=== PATIENT | male | born 1935 | race Caucasian/White ===

== ENCOUNTER 2018-01-21 05:02 | Inpatient (IN) ==
[2018-01-21] MEDS ORDERED: Morphine Inj 4 MG/ML Vial IV.PUSH ONE (05:25)
--- NOTE | 2018-01-21 06:04 | ED ---
HPI General Chief Complaint: Fall Stated Complaint: Medical Time Seen by Provider: 01/21/18 05:25 Source: patient and EMS Mode of arrival: EMS Limitations: no limitations History of Present Illness MD Complaint: Reports back injury Onset (ago): hour(s) Similar Symptoms Previously: No Location: Reports lumbar spine Quality: Reports sharp Radiation: Reports none Severity scale (1-10): 10 Relieving factors: none Exacerbating factors: movement Context: Reports fall Associated symptoms: Reports denies other symptoms; Denies syncope, numbness, loss of sensation in lower extremities, fecal incontinence, fever, chills and parasthesias Related Data Home Medications Medication Instructions Recorded Confirmed alendronate 70 mg PO QWEEK 11/17/17 11/17/17 cod liver oil ml PO DAILY 11/17/17 diltiazem HCl 360 mg PO DAILY 11/17/17 11/17/17 hydroxyurea 1,000 mg PO DIRECTED 11/17/17 11/17/17 hydroxyurea 500 mg PO DIRECTED 11/17/17 11/17/17 levothyroxine 100 mcg PO DAILY 11/17/17 11/17/17 prednisone 10 mg PO HS 11/17/17 11/17/17 warfarin [Coumadin] 5 mg PO 2XWEEK 11/17/17 11/17/17 Previous Rx's Medication Instructions Recorded allopurinol 100 mg PO DAILY #30 tab 11/22/17 ascorbic acid (vitamin C) [Vitamin 500 mg PO DAILY #30 tab 11/22/17 C] calcium citrate 300 mg PO QID #120 tab 11/22/17 cholecalciferol (vitamin D3) 5,000 unit PO DAILY #30 tab 11/22/17 [Vitamin D3] diltiazem HCl 240 mg PO DAILY #60 cap 11/22/17 docusate sodium [Colace] 100 mg PO TID #90 cap 11/22/17 fluticasone-salmeterol [Advair 1 inh INHALATION DAILY #1 inh 11/22/17 Diskus] folic acid 0.8 mg PO DAILY #30 tab 11/22/17 furosemide [Lasix] 40 mg PO BID #60 tab 11/22/17 guaifenesin [Mucinex] 600 mg PO BID #60 tab 11/22/17 hydroxyurea 1,000 mg PO MoTuWeTh #60 cap 10/09/18 hydroxyurea 500 mg PO SuFrSa #30 cap 11/22/17 levothyroxine [Synthroid] 100 mcg PO DAILY@0600 #30 tab 11/22/17 meclizine 12.5 mg PO Q6H PRN #120 tab 11/22/17 metolazone 2.5 mg PO Q OTHER DAY #30 tab 11/22/17 metolazone 5 mg PO Q OTHER DAY #30 tab 11/22/17 multivitamin [Multiple Vitamins] 1 tab PO DAILY #30 tab 11/22/17 nebulizer and compressor [Portable #1 each 11/22/17 Nebulizer System] polyethylene glycol 3350 [Miralax] 17 g PO DAILY PRN #1 bottle 11/22/17 potassium chloride 20 meq PO TID #90 ea 11/22/17 pravastatin 20 mg PO HS #30 tab 11/22/17 prednisone 20 mg PO HS #60 tab 11/22/17 ramipril 2.5 mg PO DAILY #30 tab 11/22/17 warfarin [Coumadin] 5 mg PO TuFr@1600 #30 tab 11/22/17 warfarin [Coumadin] 5.5 mg PO 5XW #30 tab 11/22/17 hydrocodone-acetaminophen [[place]] 1 tab PO Q4-6H PRN #35 tab 01/21/18 Allergies Allergy/AdvReac Type Severity Reaction Status Date / Time aspirin Allergy Severe Hives Verified 01/21/18 05:29 erythromycin base Allergy Severe Hives Verified 01/21/18 05:29 levofloxacin Allergy Severe Hives Verified 01/21/18 05:29 Review of Systems ROS: all other systems reviewed are negative [facility] Medical History Medical History A-fib (Acute) Asthma (Acute) Hypercholesterolemia (Acute) Hypothyroidism (Acute) Pacemaker (Acute) Social History Social History Substance History: No History of Abuse Second Hand Smoke Exposure: Yes Smoking Status: Never smoker How Often Do You Have a Drink Containing Alcohol: Never Recent Travel in [facility] within the Last 8 Weeks: No Recent Out of Country Travel within the Last 8 Weeks: No Immunization History Tetanus Immunization: Unsure Exam Const General: cooperative, healthy appearing, no acute distress and well developed Orientation: alert, awake and oriented x3 HENMT Head: normal to inspection, normocephalic and atraumatic Eyes Alignment and Position: alignment normal Conjunctivae: conjunctivae normal Sclera: sclerae normal EOM: EOM intact bilaterally Neck Neck: normal visual inspection and full ROM Chest Chest: normal inspection of the chest Resp Effort & Inspection: normal respiratory effort and able to speak in complete sentences Cardio Rate: regular rate Rhythm: regular rhythm Back/Spine/Pelvis Cervical Spine: cervical ROM normal Thoracic/Lumbar Spine: thoraco-lumbar ROM limited, No thoracic spinal tenderness and lumbar spinal tenderness Skin General: no rashes or lesions noted and turgor normal Neuro General: alert, awake, oriented x3, moves all extremities and CN's II-XI intact bilaterally Extrem General: normal to inspection and full ROM Psych Appearance: grossly normal Mental Status: mental status grossly normal Speech and Movement: speech and movement normal Mood: congruent mood Affect: normal affect Attitude: cooperative Thought Process: normal Thought Content: normal Judgment: judgment good Course Initial Documented Vital Signs Temperature 98.5 F 01/21/18 05:21 Pulse Rate 64 01/21/18 05:21 Respiratory Rate 24 01/21/18 05:21 Blood Pressure 126/58 L 01/21/18 05:21 Pulse Oximetry 95 01/21/18 05:21 Last Documented Vital Signs Temperature 98.5 F 01/21/18 05:30 Pulse Rate 75 01/21/18 05:30 Respiratory Rate 26 H 01/21/18 05:30 Blood Pressure 132/62 01/21/18 05:30 Pulse Oximetry 95 01/21/18 05:30 Medical Decision Making [facility] Narrative Medical decision making narrative: This patient was just discharged from a detention facility today. As he was transferring from his vehicle to the house, he had a loss of balance and fall. He states that he struck the back of his head on the car. There was no loss of consciousness. [facility] was called. He was not transported to the hospital at that time. He has subsequently developed pain in his low back. [facility] was called again and he was brought to the hospital. He denies any worrisome signs or symptoms such as bowel or bladder incontinence, paresthesias, leg weakness. On exam, he has tenderness in the upper part of the lumbar back. CT of the L-spine has been ordered. His pain has been treated with morphine. CT shows a T12 compression fracture. I have not consulted neurosurgery because this patient would not be a good operative candidate for kyphoplasty. He will be placed in a back brace. He will be given a referral to neurosurgery as an outpatient. [facility] Prescription Drug Monitoring Database has been queried and verified prior to prescribing the controlled subsection. Patient is having significant pain caused by a compression fracture which will last more than 3 days. Trial of alternative treatment options other than prescribed opioids has not helped. I believe that it is medically necessary to treat the patients pain because it is affecting patients ability to enjoy life. Medical Screen Exam Complete: Yes Emergency Medical Condition: Yes Differential Diagnosis Differential Diagnosis: Differential diagnosis of back injury includes but is not limited to contusion, muscle strain, ligamentous strain, compression fracture, spinous process fracture Imaging Data Radiologist's impression: Lumbar Spine CT 01/21/18 05:25 CONCLUSION: 1. Degenerative changes are noted as above. 2. T12 compression fracture. Discharge Plan Discharge Disposition Patient Disposition: Discharge Home Discharge Condition Condition: Stable Discharge Order Discharge Orders: Discharge Order (Routine); Ordered 01/21/18 Ordered By: Ailyn Ramírez Discharge Details Diagnosis: Compression fracture of T12 vertebra Physicians Team ED Provider: Ailyn Ramírez Primary Care Provider: Richie Martinez Rxs /Orders / Referrals /Forms Prescriptions: New hydrocodone-acetaminophen [[place]] 5-325 mg tablet 1 tab PO Q4-6H PRN (Reason: acute pain exception) Qty: 35 RF: 0 No Action hydroxyurea 500 mg Capsule 1,000 mg PO DIRECTED RF: 0 hydroxyurea 500 mg Capsule 500 mg PO DIRECTED RF: 0 prednisone 10 mg Tablet 10 mg PO HS RF: 0 alendronate 70 mg Tablet 70 mg PO QWEEK RF: 0 diltiazem HCl 360 mg Capsule,Extended Release 24 Hr 360 mg PO DAILY RF: 0 cod liver oil Oil PO DAILY RF: 0 warfarin [Coumadin] 5 mg Tablet 5 mg PO 2XWEEK RF: 0 levothyroxine 100 mcg Capsule 100 mcg PO DAILY RF: 0 hydroxyurea 500 mg Capsule 500 mg PO SuFrSa Qty: 30 RF: 0 hydroxyurea 500 mg Capsule 1,000 mg PO MoTuWeTh Qty: 60 RF: 0 prednisone 10 mg Tablet 20 mg PO HS Qty: 60 RF: 0 levothyroxine [Synthroid] 100 mcg Tablet 100 mcg PO DAILY@0600 Qty: 30 RF: 0 warfarin [Coumadin] 5 mg Tablet 5 mg PO TuFr@1600 Qty: 30 RF: 0 diltiazem HCl 120 mg Capsule,Extended Release 24hr 240 mg PO DAILY Qty: 60 RF: 0 guaifenesin [Mucinex] 600 mg Tablet Extended Release 12hr 600 mg PO BID Qty: 60 RF: 0 nebulizer and compressor [Portable Nebulizer System] Device Qty: 1 RF: 0 multivitamin [Multiple Vitamins] Tablet 1 tab PO DAILY Qty: 30 RF: 0 furosemide [Lasix] 40 mg Tablet 40 mg PO BID Qty: 60 RF: 0 metolazone 2.5 mg Tablet 2.5 mg PO Q OTHER DAY Qty: 30 RF: 0 fluticasone-salmeterol [Advair Diskus] 250-50 mcg/dose Blister With Device 1 inh INHALATION DAILY Qty: 1 RF: 0 polyethylene glycol 3350 [Miralax] 17 gram Powder In Packet 17 g PO DAILY PRN (Reason: Constipation) Qty: 1 RF: 0 metolazone 5 mg Tablet 5 mg PO Q OTHER DAY Qty: 30 RF: 0 meclizine 12.5 mg Tablet 12.5 mg PO Q6H PRN (Reason: Vertigo) Qty: 120 RF: 0 allopurinol 100 mg Tablet 100 mg PO DAILY Qty: 30 RF: 0 potassium chloride 20 mEq Packet 20 meq PO TID Qty: 90 RF: 0 ascorbic acid (vitamin C) [Vitamin C] 500 mg Tablet 500 mg PO DAILY Qty: 30 RF: 0 ramipril 2.5 mg Capsule 2.5 mg PO DAILY Qty: 30 RF: 0 warfarin [Coumadin] 5 mg Tablet 5.5 mg PO 5XW Qty: 30 RF: 0 docusate sodium [Colace] 100 mg Capsule 100 mg PO TID Qty: 90 RF: 0 pravastatin 20 mg Tablet 20 mg PO HS Qty: 30 RF: 0 folic acid 800 mcg Tablet 0.8 mg PO DAILY Qty: 30 RF: 0 calcium citrate 200 mg (950 mg) Tablet 300 mg PO QID Qty: 120 RF: 0 cholecalciferol (vitamin D3) [Vitamin D3] 5,000 unit Tablet 5,000 unit PO DAILY Qty: 30 RF: 0 Referrals: Donald Gillis MD [Physician] - 3 Days Discharge Instructions Patient Printed Instructions: Vertebral Compression Fracture (ED) Discharge Interventions Interventions: Vital Signs Last Done: 01/21/18 05:30 Status ED Status: Ready for Discharge
--- NOTE | 2018-01-21 06:16 | CT ---
EXAM DATE: 01/21/2018 5:59 AM EST AGE/SEX: 82 years / Male INDICATIONS: Trauma; patient complains of low back pain. CLINICAL DATA: This is the patient's initial encounter. Patient reports that signs and symptoms have been present for 1 day and indicates a pain score of 8/10. MEDICAL/SURGICAL HISTORY: Cardiovascular disease. Atrial fibrillation Pacemaker. Splenectomy. RADIATION DOSE: 24.44 CTDI (mGy) COMPARISON: No prior exams available for comparison. TECHNIQUE: Contiguous axial images were acquired with a multirow detector CT scanner without contras t. Multiplanar reconstructions in the sagittal and coronal plane were also performed. Using automate d exposure control and adjustment of the mA and/or kV according to patient size, radiation dose was k ept as low as reasonably achievable to obtain optimal diagnostic quality images. DICOM format image data is available electronically for review and comparison. FINDINGS: Grade 1 retrolisthesis of L5 on S1, grade 1 anterolisthesis of L4 and L5. Severe disc space narrowing with vacuum disc phenomenon and mild endplate sclerosis at L3-4, L4-5 and L5-S1. There is an acute f racture of the T12 vertebral body with very slight loss of vertebral body height. There are mild to m oderate multilevel facet hypertrophic changes and mild diffuse disc bulging. L3-4 a diffuse disc bulg e is present with moderate facet and ligamentum flavum hypertrophy and mild canal narrowing. There is also moderate bilateral foraminal stenosis. A broad-based bulge/lateral protrusion at L4-5 is identi fied on the right with mass effect on the right L4 exiting nerve.. Mild anterior osteophyte formation is seen. CONCLUSION: 1. Degenerative changes are noted as above. 2. T12 compression fracture. Electronically signed by: Ming Hough MD 01/21/2018 6:15 AM EST
[2018-01-21] MEDS ORDERED: MECLIZINE 12.5 MG PO PRN (12:23)
[2018-01-21] MEDS ORDERED: Non-Formulary Drug (Fluticasone-Salmeterol [Advair Diskus] 1 INH) INHALATION SCH (12:30)
[2018-01-21] MEDS ORDERED: FOLIC ACID 800 MCG PO SCH (12:30)
[2018-01-21] MEDS ORDERED: DILTIAZEM HCL 360 MG PO SCH (12:30)
[2018-01-21] MEDS ORDERED: MULTIVITAMIN IRON FOLIC ACID PO SCH (12:30)
[2018-01-21] MEDS ORDERED: COD LIVER OIL PO SCH (12:30)
[2018-01-21] MEDS ORDERED: Non-Formulary Drug (Cholecalciferol (Vitamin D3) [Vitamin D3] 5,000 UNIT) PO SCH (12:30)
[2018-01-21] MEDS ORDERED: CALCIUM CITRATE PO SCH (13:00)
[2018-01-21] MEDS ORDERED: Potassium Chloride 20 MEQ Pwd Pkt PO SCH (13:00)
[2018-01-21] MEDS: Furosemide 40 MG Tablet PO SCH ×2 (14:39→21:13)
[2018-01-21] MEDS: Hydroxyurea 500 MG Capsule PO SCH (14:39)
[2018-01-21] MEDS: dilTIAZem CD 180 MG Capsule PO SCH (14:40)
[2018-01-21] MEDS: Potassium Chloride 25 MEQ Effervescent Tablet PO SCH ×2 (14:40→18:28)
[2018-01-21] MEDS: Ramipril 2.5 MG Capsule PO SCH (14:40)
[2018-01-21] MEDS: Allopurinol 100 MG Tablet PO SCH (14:40)
[2018-01-21] MEDS: Ascorbic Acid 500 MG Tablet PO SCH (14:40)
[2018-01-21] MEDS: Docusate Sodium 100 MG Capsule PO SCH ×2 (14:40→18:28)
[2018-01-21 16:28] LABS: INR 1.5 Ratio; Prothrombin Time 14.7 sec (9.8-11.6)
[2018-01-21] MEDS: Budesonide-Formoterol 160/4.5 MCG 6 GM Inhaler INH SCH (21:15)
--- NOTE | 2018-01-21 21:32 | ECG ---
Date Performed: 01/21/2018 Time Performed: 05:34:51 PTAGE: 82 years EKG: ATRIAL FIBRILLATION WITH CONTROLLED VENTRICULAR RATE VENTRICULAR PREMATURE COMPLEXES NONSPE CIFIC ST & T-WAVE ABNORMALITY Compared to previous tracing, prior tracing showed pacing ABNORMAL RHYT HM ECG PREVIOUS TRACING : 11/17/2017 08.12 DOCTOR: Matthew Ortega Interpretating Date/Time 01/21/2018 21:31:34
[2018-01-21] MEDS ORDERED: Bisacodyl 10 MG Supp RECTAL PRN (22:20)
[2018-01-21] MEDS ORDERED: Acetaminophen 325 MG Tablet PO PRN (22:20)
--- NOTE | 2018-01-21 22:22 | P.HPIM ---
History of Present Illness Primary Care Physician: Richie Martinez MD History of Present Illness: This is an 82-year-old male with a PMH of HTN, Hyperlipidemia and A. fib on Coumadin who was brought to the ER by EMS yesterday for complaints of back pain after a fall. CT L-Spine w/ T12 compression fracture and fitted for TLSO w/ plans for outpatient follow up, however was deemed unsafe d/c home due to unsteady gait and ongoing pain. On arrival, BP 132/62, HR 75, O2 sat 95% on 2L NC, Afebrile. - Diagnosis (1) Fall (2) T12 compression fracture (3) A-fib Review of Systems PAST FAMILY HISTORY: Reviewed. No h/o DM or CAD All other systems reviewed negative except as stated in HPI [facility] - History History Provided By: Patient - Medical History Medical History: Medical History (Last Reviewed 01/21/18 @ 06:02 by Ailyn Ramírez) A-fib Asthma Hypercholesterolemia Hypothyroidism Pacemaker - Surgical History Surgical History: Surgical History (Last Reviewed 01/21/18 @ 05:26 by Dileep Daly Jr, RN) History of splenectomy - Family History Family History: Family History (Last Reviewed 11/17/17 @ 17:14 by Maria Fernanda Martel PT) Other No pertinent family history - Tobacco History Second Hand Smoke Exposure: Yes Smoking Status: Never smoker - Alcohol History How Often Do You Have a Drink Containing Alcohol: Never - Substance Use History Substance History: No History of Abuse - Travel History Recent Travel in the [place] Within the Last 8 Weeks: No Recent Travel Out of the Country Within the Last 8 Weeks: No - Immunization History Tetanus Immunization: Unsure Medications and Allergies Active Medications: Active Medications Albuterol (Albuterol Neb (Prn)) 1.25 mg NEB Q6HR NEB PRN PRN Reason: Shortness Of Breath Allopurinol (Zyloprim) 100 mg PO DAILY [facility] Last Admin: 01/21/18 14:40 Dose: 100 mg Ascorbic Acid (Vitamin C) 500 mg PO DAILY [facility] Last Admin: 01/21/18 14:40 Dose: 500 mg Budesonide/Formoterol Fumarate (Symbicort 160/4.5 Mcg Inh) 2 puff INH BID [facility] Last Admin: 01/21/18 21:15 Dose: 2 puff Diltiazem HCl (Cardizem Cd 24hr) 360 mg PO Q24H [facility] Last Admin: 01/21/18 14:40 Dose: 360 mg Docusate Sodium (Colace) 100 mg PO TID [facility] Last Admin: 01/21/18 18:28 Dose: 100 mg Furosemide (Lasix) 40 mg PO BID [facility] Last Admin: 01/21/18 21:13 Dose: 40 mg Hydroxyurea (Hydrea) 500 mg PO DAILY [facility] Last Admin: 01/21/18 14:39 Dose: 500 mg Levothyroxine Sodium (Synthroid) 100 mcg PO DAILY@0600 [facility] Metolazone (Zaroxolyn) 2.5 mg PO [facility] Miscellaneous (Pill Splitter) 1 each OTHER UNSCH PRN PRN Reason: TABLET SPLITTIN Multivitamins (Theragran) 1 tab PO DAILY [facility] Non-Formulary Medication (Meclizine [Meclizine]) 12.5 mg PO Q6H PRN PRN Reason: Vertigo Potassium Bicarb/Potassium Chloride (K-Lyte Cl Eff) 25 meq PO TID [facility] Last Admin: 01/21/18 18:28 Dose: 25 meq Pravastatin Sodium (Pravachol) 20 mg PO HS [facility] Last Admin: 01/21/18 21:13 Dose: 20 mg Ramipril (Altace) 2.5 mg PO DAILY [facility] Last Admin: 01/21/18 14:40 Dose: 2.5 mg Vitamin D (Vitamin D3) 5,000 unit PO DAILY [facility] Last Admin: 01/21/18 14:41 Dose: 5,000 unit Warfarin Sodium (Coumadin) 5 mg PO SuMoWeThSa@1600 [facility] Last Admin: 01/21/18 18:15 Dose: 5 mg Warfarin Sodium (Coumadin) 0.5 mg PO SuMoWeThSa@1600 [facility] Last Admin: 01/21/18 18:24 Dose: 0.5 mg Allergies Allergy/AdvReac Type Severity Reaction Status Date / Time aspirin Allergy Severe Hives Verified 01/21/18 05:29 erythromycin base Allergy Severe Hives Verified 01/21/18 05:29 levofloxacin Allergy Severe Hives Verified 01/21/18 05:29 Home Medications Medication Instructions Recorded Confirmed Type alendronate 70 mg PO QWEEK 11/17/17 01/21/18 History diltiazem HCl 360 mg PO DAILY 11/17/17 01/21/18 History albuterol sulfate 1.25 mg INHALATION Q6H PRN 01/21/18 01/21/18 History ascorbic acid (vitamin C) [Vitamin 500 mg PO DAILY 01/21/18 01/21/18 History C] cod liver oil 5 ml PO DAILY 01/21/18 01/21/18 History cyanocobalamin (vitamin B-12) 1,000 mcg SUBCUT QMONTH 01/21/18 01/21/18 History folic acid 800 mcg PO DAILY 01/21/18 01/21/18 History hydroxyurea 500 mg PO DAILY 01/21/18 01/21/18 History metolazone 2.5 mg PO 4XW 01/21/18 01/21/18 History metolazone 5 mg PO 3XW 01/21/18 01/21/18 History ipzlcwvqzkiu-tpia-ptapo acid 1 tab PO DAILY 01/21/18 01/21/18 History [Centrum] polyethylene glycol 3350 [Miralax] 17 g PO DAILY PRN 01/21/18 01/21/18 History warfarin [Coumadin] 5 mg PO 2XWEEK 01/21/18 01/21/18 History warfarin [Coumadin] 5.5 mg PO 5XW 01/21/18 01/21/18 History Exam Vital signs: Vital Signs 01/21/18 05:21 01/21/18 05:30 01/21/18 09:29 Temperature 98.5 F 98.5 F Pulse Rate 64 75 84 Respiratory Rate 24 26 H 20 Blood Pressure 126/58 L 132/62 144/70 H Pulse Oximetry 95 95 93 L 01/21/18 13:00 01/21/18 17:00 01/21/18 18:15 Temperature Pulse Rate 67 70 62 Respiratory Rate 18 17 18 Blood Pressure 116/57 L 118/62 113/58 L Pulse Oximetry 99 96 97 01/21/18 21:55 Temperature Pulse Rate 54 L Respiratory Rate 19 Blood Pressure 104/52 L Pulse Oximetry Intake & Output 01/21/18 01/21/18 01/22/18 06:59 18:59 06:59 Weight 90.718 kg Narrative: PE: GENERAL: Pleasant elderly white male in no acute distress. SKIN: Focused skin assessment warm and dry. HEENT: PERRLA, EOMI. No scleral icterus or conjunctival pallor. No lid lag or facial droop. CARDIOVASCULAR: Regular rate and rhythm. No obvious murmurs to auscultation. No chest tenderness to palpation. RESPIRATORY: No obvious rhonchi or wheezing. Clear to auscultation. Breath sounds equal bilaterally. GASTROINTESTINAL: Abdomen soft, non-tender, nondistended. BS normal. MUSCULOSKELETAL: Extremities without clubbing, cyanosis, or edema. No obvious deformities. +TLSO NEUROLOGICAL: Awake, alert and oriented x4. No focal neurologic deficits. Moving both upper and lower extremities spontaneously. PSYCHIATRIC: Appropriate mood and affect. Insight and judgment normal. Results - Imaging Impressions Lumbar Spine CT 01/21/18 05:25 CONCLUSION: 1. Degenerative changes are noted as above. 2. T12 compression fracture. Caprini VTE Risk Assessment Caprini VTE Risk Assessment: Moderate/High Risk (score >= 2) Caprini Risk Assessment Model: Point Value = 1 Point Value = 2 Point Value = 3 Point Value = 5 Age 41-60 Minor surgery BMI > 25 kg/m2 Swollen legs Varicose veins or History of unexplained or recurrent spontaneous Oral contraceptives or hormone replacement Sepsis (< 1 month) Serious lung disease, including pneumonia (< 1 month) Abnormal pulmonary function Acute myocardial infarction Congestive heart failure (< 1 month) History of inflammatory bowel disease Medical patient at bed rest Age 61-74 Arthroscopic surgery Major open surgery (> 45 min) Laparoscopic surgery (> 45 min) Malignancy Confined to bed (> 72 hours) Immobilizing plaster cast Central venous access Age >= 75 History of VTE Family history of VTE Factor V Leiden Prothrombin [id number] Lupus anticoagulant Anticardiolipin antibodies Elevated serum homocysteine Heparin-induced thrombocytopenia Other congenital or acquired thrombophilia Stroke (< 1 month) Elective arthroplasty Hip, pelvis, or leg fracture Acute spinal cord injury (< 1 month) Prophylaxis Regimen: Total Risk Factor Score Risk Level Prophylaxis Regimen 0-1 Low Early ambulation 2 Moderate Order ONE of the following: *Sequential Compression Device (SCD) *Heparin 5000 units SQ BID 3-4 Higher Order ONE of the following medications: *Heparin 5000 units SQ TID *Enoxaparin/Lovenox 40 mg SQ daily (WT < 150 kg, CrCl > 30 mL/min) *Enoxaparin/Lovenox 30 mg SQ daily (WT < 150 kg, CrCl > 10-29 mL/min) *Enoxaparin/Lovenox 30 mg SQ BID (WT < 150 kg, CrCl > 30 mL/min) AND/OR *Sequential Compression Device (SCD) 5 or more Highest Order ONE of the following medications: *Heparin 5000 units SQ TID (Preferred with Epidurals) *Enoxaparin/Lovenox 40 mg SQ daily (WT < 150 kg, CrCl > 30 mL/min) *Enoxaparin/Lovenox 30 mg SQ daily (WT < 150 kg, CrCl > 10-29 mL/min) *Enoxaparin/Lovenox 30 mg SQ BID (WT < 150 kg, CrCl > 30 mL/min) AND *Sequential Compression Device (SCD) Assessment and Plan - Assessment (1) Fall Code(s): W19.XXXA - Unspecified fall, initial encounter Status: Acute (2) T12 compression fracture Code(s): S22.080A - Wedge compression fracture of T11-T12 vertebra, initial encounter for closed fracture Status: Acute (3) A-fib Code(s): I48.91 - Unspecified atrial fibrillation Status: Acute - Plan A/P: 1. Fall: s/p mechanical fall, no head trauma or LOC reported, denies other injuries. 2. T12 Compression Fx: secondary to above, CT L-Spine w/ T12 compression fracture, referred to [facility] as outpatient, +TLSO, attempted discharge, however pt w/ significant gait instability, unsafe d/c home. PT for eval/tx. Case Management for assistance w/ placement. 3. A-fib: Chronic. On Coumadin, INR 1.5, will resume Coumadin, repeat INR in am. 4. DVT Prophylaxis: Continue Coumadin as above 5. Social work for d/c planning as needed 6. Case discussed w/ ER physician at length, labs/records/imaging reviewed by me
[2018-01-22] MEDS: Levothyroxine 100 MCG Tablet PO SCH (06:23)
[2018-01-22 08:11] LABS: INR 1.8 Ratio; Prothrombin Time 18.7 sec (9.8-11.6)
[2018-01-22 08:27] LABS: Albumin 2.7 g/dL (3.4-5.0); Anion Gap 9 meq/L (5-15); Aspartate Aminotransferase 67 U/L (15-37); Blood Urea Nitrogen 21 mg/dL (7-18); Calcium 8.3 mg/dL (8.5-10.1); Carbon Dioxide 22.9 meq/L (21.0-32.0); Chloride 107 meq/L (98-107); Glomerular Filtration Rate 48 mL/min (>89); Glucose,Random 84 mg/dL (74-106); Potassium 4.5 meq/L (3.5-5.1); Sodium 139 meq/L (136-145)
[2018-01-22 08:28] LABS: Alanine Aminotransferase 29 U/L (12-78)
[2018-01-22 08:31] LABS: Alkaline Phosphatase 92 U/L (45-117); Total Protein 5.8 g/dL (6.4-8.2)
[2018-01-22 08:58] LABS: Baso # (Auto) 0.2 th/mm3 (0.0-0.2); Eos # (Auto) 0.6 th/mm3 (0.0-0.4); Eos % (Auto) 3.8 % (0.0-4.0); Hematocrit 30.4 % (39.0-51.0); Hemoglobin 10.1 gm/dL (13.0-17.0); Lymph # (Auto) 2.1 th/mm3 (1.0-4.8); Lymph % (Auto) 13.7 % (9.0-44.0); Mean Corpuscular HGB Conc 33.1 % (32.0-36.0); Mean Corpuscular Hemoglobin 36.5 pg (27.0-34.0); Mean Corpuscular Volume 110.2 fL (80.0-100.0); Mean Platelet Volume 8.6 fL (7.0-11.0); Mono # (Auto) 3.1 th/mm3 (0.0-0.9); Mono % (Auto) 19.7 % (0.0-8.0); Neut # (Auto) 9.6 th/mm3 (1.8-7.7); Neut % (Auto) 61.8 % (16.0-70.0); Platelet Count 506 th/mm3 (150-450); Red Blood Count 2.76 mil/mm3 (4.50-5.90); Red Cell Distribution Width 17.6 % (11.6-17.2); White Blood Count 15.6 th/mm3 (4.0-11.0)
[2018-01-22] MEDS: Hydroxyurea 500 MG Capsule PO SCH (09:06)
[2018-01-22] MEDS: Ramipril 2.5 MG Capsule PO SCH (09:06)
[2018-01-22] MEDS: Potassium Chloride 25 MEQ Effervescent Tablet PO SCH ×3 (09:06→18:23)
[2018-01-22] MEDS: Docusate Sodium 100 MG Capsule PO SCH ×3 (09:06→18:23)
[2018-01-22] MEDS: Ascorbic Acid 500 MG Tablet PO SCH (09:06)
[2018-01-22] MEDS: Senna/Docusate Sodium 8.6/50 MG Tablet PO SCH ×2 (09:07→22:12)
[2018-01-22] MEDS: Budesonide-Formoterol 160/4.5 MCG 6 GM Inhaler INH SCH ×2 (09:08→22:11)
[2018-01-22] MEDS: Allopurinol 100 MG Tablet PO SCH (09:08)
[2018-01-22] MEDS: Furosemide 40 MG Tablet PO SCH (10:35)
[2018-01-22 11:53] LABS: Eosinophils 3 % (0-4); Lymphocytes 25 % (9-44); Monocytes 12 % (0-8); Tallied Nucleated RBC 2 (0-0)
[2018-01-22 11:54] LABS: Platelet Morphology Normal (Normal)
--- NOTE | 2018-01-22 13:23 | P.PN ---
Subjective Interval history: Nursing reports the patient was able to sit up on the chair. Patient self denies any new complaints. Says his back is sore. He has intact sensation to light finger touch and touch his anterior legs. Is able to follow motor commands with both lower extremities. Physical Exam Vital signs: Vital Signs 01/21/18 17:00 01/21/18 18:15 01/21/18 21:55 Temperature Pulse Rate 70 62 54 L Respiratory Rate 17 18 19 Blood Pressure 118/62 113/58 L 104/52 L Pulse Oximetry 96 97 01/21/18 22:51 01/22/18 00:00 01/22/18 00:03 Temperature 98.3 F Pulse Rate 56 L Respiratory Rate 18 18 Blood Pressure 92/44 L Pulse Oximetry 99 96 01/22/18 04:00 01/22/18 08:00 01/22/18 12:00 Temperature 97.7 F 97.6 F 97.5 F L Pulse Rate 57 L 84 64 Respiratory Rate 18 13 12 Blood Pressure 125/58 L 120/56 L 120/56 L Pulse Oximetry 98 98 97 Intake & Output 01/21/18 01/22/18 01/22/18 18:59 06:59 18:59 Intake Total 300 / 300 Output Total 320 / 320 Balance -20 / -20 Weight 90.718 kg Intake: Oral 300 / 300 Output: Urine 320 / 320 Other: Date of Last Bowel Movement 01/21/18 Weight On Admission 90.718 kg Narrative: Withholds bilateral proximal hip flexion secondary to low back pain Sitting up in chair, no slurred speech, no facial droop Clear lungs bilaterally, unlabored breathing Heart sounds regular rate and rhythm Has a bleeding venous stasis ulcer on the right anterior white mild-mod edematous BL ext chronic staining secondary to venous stasis of bilateral lower extremities Results - Labs CBC & Chem 7: 01/22/18 07:21 01/22/18 07:21 Laboratory Results - last 24 hr 01/21/18 01/21/18 01/22/18 15:30 17:42 07:21 WBC 15.6 H RBC 2.76 L Hgb 10.1 L Hct 30.4 L MCV 110.2 H D MCH 36.5 H MCHC 33.1 RDW 17.6 H Plt Count 506 H MPV 8.6 Prelim Diff (Auto) Slide review pending Neut % (Auto) 61.8 Lymph % (Auto) 13.7 [place] % (Auto) 19.7 H Eos % (Auto) 3.8 Baso % (Auto) 1.0 Neut # (Auto) 9.6 H Lymph # (Auto) 2.1 [place] # (Auto) 3.1 H Eos # (Auto) 0.6 H Baso # (Auto) 0.2 WBC Differential Manual diff final Seg Neuts % (Manual) 52 Band Neuts % (Manual) 8 H Lymphocytes % (Manual) 25 Monocytes % (Manual) 12 H Eosinophils % (Manual) 3 Abs Neuts (Manual) 9.4 H Nucleated RBCs/100 WBC 2 H Differential Comment . Platelet Estimate High H Platelet Morphology Normal PT 14.7 H INR 1.5 Sodium Potassium Chloride Carbon Dioxide Anion Gap BUN Creatinine Estimated GFR POC Glucose 109 Random Glucose Calcium Total Bilirubin AST ALT Alkaline Phosphatase Total Protein Albumin 01/22/18 01/22/18 07:21 07:21 WBC RBC Hgb Hct MCV MCH MCHC RDW Plt Count MPV Prelim Diff (Auto) Neut % (Auto) Lymph % (Auto) [place] % (Auto) Eos % (Auto) Baso % (Auto) Neut # (Auto) Lymph # (Auto) [place] # (Auto) Eos # (Auto) Baso # (Auto) WBC Differential Seg Neuts % (Manual) Band Neuts % (Manual) Lymphocytes % (Manual) Monocytes % (Manual) Eosinophils % (Manual) Abs Neuts (Manual) Nucleated RBCs/100 WBC Differential Comment Platelet Estimate Platelet Morphology PT 18.7 H INR 1.8 Sodium 139 Potassium 4.5 Chloride 107 Carbon Dioxide 22.9 Anion Gap 9 BUN 21 H Creatinine 1.41 H Estimated GFR 48 L POC Glucose Random Glucose 84 Calcium 8.3 L Total Bilirubin 1.5 H AST 67 H ALT 29 Alkaline Phosphatase 92 Total Protein 5.8 L Albumin 2.7 L Assessment and Plan - Assessment (1) Fall Code(s): W19.XXXA - Unspecified fall, initial encounter Status: Acute (2) T12 compression fracture Code(s): S22.080A - Wedge compression fracture of T11-T12 vertebra, initial encounter for closed fracture Status: Acute (3) A-fib Code(s): I48.91 - Unspecified atrial fibrillation Status: Acute - Plan 82-year-old white male admitted for intractable back pain after fall injury. Intractable back pain Improved since admission -Secondary to acute insult on chronic issues including spondylolisthesis along with very mild compression fracture, discussed case with neurosurgery, no need for further workup or invasive intervention Nasal calcitonin, pain control otherwise, PT, TSLO brace ROLAND - 2/2 home lasix, hold for now, trend in AM leukocytosis - likely stress induced, afebrile, trend dysphagia - not noted on prior admissions, will obtain MR of head to see if new CVA has occurred. - continue speech therapy, current recommendations are soft mechanical diet with nectar thickened liquids -allergic to ASA -start lipitor Afib Hx of CVA - on coumadin, allergic to aspirin -diltiazem Asthma -home ICS Myeloproliferative d/o -home hydroxyurea
[2018-01-22] MEDS: dilTIAZem CD 180 MG Capsule PO SCH (13:41)
--- NOTE | 2018-01-22 15:09 | P.CONNS ---
History of Present Illness Service: Neurosurgery Consult date: 01/22/18 Requesting Physician: Herman Damon Reason for Consult: T-12 compression fracture, intractable LBP Primary Care Provider: Richie Martinez MD Chief Complaint: T-12 compression fracture History of Present Illness: I was aksed by Dr. Damon ( ED), to see and evaluate this unfortunate 82-year- old male with a PMH of HTN, Hyperlipidemia and A. fib on Coumadin who was brought to the ER by EMS yesterday for complaints of back pain after a fall. CT L-Spine reveals a mild T12 compression fracture, he was fitted with TLSO w/ plans for outpatient follow up, however was deemed unsafe to d/c home due to unsteady gait and ongoing pain. Review of Systems All other systems reviewed negative except as stated in HPI Musculoskeletal: Reports abnormal walking, Reports back pain, Reports radiating pain into limb PMFSH - History History Provided By: Patient - Medical History Medical History: Medical History (Last Reviewed 01/22/18 @ 14:58 by Manohar Kuhn MD) A-fib Asthma Hypercholesterolemia Hypothyroidism Pacemaker - Surgical History Surgical History: Surgical History (Last Reviewed 01/22/18 @ 14:58 by Manohar Kuhn MD) History of splenectomy - Family History Family History: Family History (Last Reviewed 01/22/18 @ 14:58 by Manohar Kuhn MD) Other No pertinent family history - Tobacco History Second Hand Smoke Exposure: Yes Smoking Status: Never smoker - Alcohol History How Often Do You Have a Drink Containing Alcohol: Never - Substance Use History Substance History: No History of Abuse - Travel History Recent Travel in the [place] Within the Last 8 Weeks: No Recent Travel Out of the Country Within the Last 8 Weeks: No - Immunization History Tetanus Immunization: Unsure Medications and Allergies Active Medications: Active Medications Acetaminophen (Tylenol) 650 mg PO Q4H PRN PRN Reason: Temp > 100.4 Hydrocodone Bitart/Acetaminophen ([place] 5/325) 1 tab PO Q4H PRN PRN Reason: PAIN 3-5 Last Admin: 01/22/18 13:42 Dose: 1 tab Al Hydroxide/Mg Hydroxide (Milk Of Magnesia Liq) 30 ml PO Q12H PRN PRN Reason: Mild Constipation Albuterol (Albuterol Neb (Prn)) 1.25 mg NEB Q6HR NEB PRN PRN Reason: Shortness Of Breath Allopurinol (Zyloprim) 100 mg PO DAILY [facility] Last Admin: 01/22/18 09:08 Dose: 100 mg Ascorbic Acid (Vitamin C) 500 mg PO DAILY [facility] Last Admin: 01/22/18 09:06 Dose: 500 mg Bisacodyl (Dulcolax Supp) 10 mg RECTAL DAILY PRN PRN Reason: SEVERE CONSITIPATION Budesonide/Formoterol Fumarate (Symbicort 160/4.5 Mcg Inh) 2 puff INH BID [facility] Last Admin: 01/22/18 09:08 Dose: 2 puff Diltiazem HCl (Cardizem Cd 24hr) 360 mg PO Q24H [facility] Last Admin: 01/22/18 13:41 Dose: Not Given Docusate Sodium (Colace) 100 mg PO TID [facility] Last Admin: 01/22/18 14:18 Dose: 100 mg Furosemide (Lasix) 40 mg PO BID [facility] Last Admin: 01/22/18 10:35 Dose: 40 mg Hydroxyurea (Hydrea) 500 mg PO DAILY [facility] Last Admin: 01/22/18 09:06 Dose: 500 mg Lactulose (Lactulose Liq) 30 ml PO DAILY PRN PRN Reason: SEVERE CONSITIPATION Levothyroxine Sodium (Synthroid) 100 mcg PO DAILY@0600 [facility] Last Admin: 01/22/18 06:23 Dose: 100 mcg Metolazone (Zaroxolyn) 2.5 mg PO SuTuThSa [facility] Last Admin: 01/22/18 09:06 Dose: 2.5 mg Miscellaneous (Pill Splitter) 1 each OTHER UNSCH PRN PRN Reason: TABLET SPLITTIN Morphine Sulfate (Morphine Inj) 2 mg IV.PUSH Q4H PRN PRN Reason: PAIN 6-10 Multivitamins (Theragran) 1 tab PO DAILY [facility] Last Admin: 01/22/18 09:08 Dose: 1 tab Non-Formulary Medication (Meclizine [Meclizine]) 12.5 mg PO Q6H PRN PRN Reason: Vertigo Ondansetron HCl (Zofran Inj) 4 mg IV.PUSH Q6H PRN PRN Reason: NAUSEA OR VOMITING Potassium Bicarb/Potassium Chloride (K-Lyte Cl Eff) 25 meq PO TID [facility] Last Admin: 01/22/18 13:43 Dose: 25 meq Pravastatin Sodium (Pravachol) 20 mg PO HS [facility] Last Admin: 01/21/18 21:13 Dose: 20 mg Ramipril (Altace) 2.5 mg PO DAILY [facility] Last Admin: 01/22/18 09:06 Dose: 2.5 mg Senna/Docusate Sodium (Norma-Colace) 1 tab PO BID [facility] Last Admin: 01/22/18 09:07 Dose: 1 tab Sennosides (Senokot) 17.2 mg PO Q12H PRN PRN Reason: Moderate Constipation Sodium Chloride (Ns Flush) 2 ml IV.FLUSH BID [facility] Last Admin: 01/22/18 09:07 Dose: 2 ml Sodium Chloride (Ns Flush) 2 ml IV.FLUSH PRN PRN PRN Reason: FLUSH AFTER USING IV ACCESS Vitamin D (Vitamin D3) 5,000 unit PO DAILY [facility] Last Admin: 01/22/18 09:06 Dose: 5,000 unit Warfarin Sodium (Coumadin) 5 mg PO SuMoWeThSa@1600 [facility] Last Admin: 01/21/18 18:15 Dose: 5 mg Warfarin Sodium (Coumadin) 0.5 mg PO SuMoWeThSa@1600 [facility] Last Admin: 01/21/18 18:24 Dose: 0.5 mg Allergies Allergy/AdvReac Type Severity Reaction Status Date / Time aspirin Allergy Severe Hives Verified 01/21/18 05:29 erythromycin base Allergy Severe Hives Verified 01/21/18 05:29 levofloxacin Allergy Severe Hives Verified 01/21/18 05:29 Home Medications Medication Instructions Recorded Confirmed Type alendronate 70 mg PO QWEEK 11/17/17 01/21/18 History diltiazem HCl 360 mg PO DAILY 11/17/17 01/21/18 History albuterol sulfate 1.25 mg INHALATION Q6H PRN 01/21/18 01/21/18 History ascorbic acid (vitamin C) [Vitamin 500 mg PO DAILY 01/21/18 01/21/18 History C] cod liver oil 5 ml PO DAILY 01/21/18 01/21/18 History cyanocobalamin (vitamin B-12) 1,000 mcg SUBCUT QMONTH 01/21/18 01/21/18 History folic acid 800 mcg PO DAILY 01/21/18 01/21/18 History hydroxyurea 500 mg PO DAILY 01/21/18 01/21/18 History metolazone 2.5 mg PO 4XW 01/21/18 01/21/18 History metolazone 5 mg PO 3XW 01/21/18 01/21/18 History [id number] acid 1 tab PO DAILY 01/21/18 01/21/18 History [Centrum] polyethylene glycol 3350 [Miralax] 17 g PO DAILY PRN 01/21/18 01/21/18 History warfarin [Coumadin] 5 mg PO 2XWEEK 01/21/18 01/21/18 History warfarin [Coumadin] 5.5 mg PO 5XW 01/21/18 01/21/18 History Exam Vital signs: Vital Signs 01/21/18 17:00 01/21/18 18:15 01/21/18 21:55 Temperature Pulse Rate 70 62 54 L Respiratory Rate 17 18 19 Blood Pressure 118/62 113/58 L 104/52 L Pulse Oximetry 96 97 01/21/18 22:51 01/22/18 00:00 01/22/18 00:03 Temperature 98.3 F Pulse Rate 56 L Respiratory Rate 18 18 Blood Pressure 92/44 L Pulse Oximetry 99 96 01/22/18 04:00 01/22/18 08:00 01/22/18 12:00 Temperature 97.7 F 97.6 F 97.5 F L Pulse Rate 57 L 84 64 Respiratory Rate 18 13 12 Blood Pressure 125/58 L 120/56 L 120/56 L Pulse Oximetry 98 98 97 Intake & Output 01/21/18 01/22/18 01/22/18 18:59 06:59 18:59 Intake Total 300 / 300 Output Total 320 / 320 Balance -20 / -20 Weight 90.718 kg Intake: Oral 300 / 300 Output: Urine 320 / 320 Other: Date of Last Bowel Movement 01/21/18 Weight On Admission 90.718 kg - Routine HEENT Exam Head: Present: normocephalic, atraumatic Eye: Present: EOMI, PERRL ENT: Present: mucous membranes moist, oropharynx clear - Routine Neck Exam Present: supple, full ROM - Routine Cardiovascular Exam Present: irregular rhythm - Routine Abdominal Exam Present: soft, normoactive bowel sounds - Routine Extremities Exam Comments: BLE with significant venous stasis ulcers - Routine Neurological Exam MS: AAO x3 Speech: slow but fluent CNII-XII: intact Fundoscopic exam limited due to pupillary constriction Motor: 5/5, R=L, neg. drift Sensory: +LT, +PP Cerebellum : WNL Gait: slow, a little unsteady due to pain. No evidence of claudication Results - Laboratory Findings CBC and BMP: 01/22/18 07:21 01/22/18 07:21 Abnormal lab findings: Abnormal Labs 01/21/18 01/22/18 01/22/18 15:30 07:21 07:21 WBC 15.6 H RBC 2.76 L Hgb 10.1 L Hct 30.4 L MCV 110.2 H D MCH 36.5 H RDW 17.6 H Plt Count 506 H [place] % (Auto) 19.7 H Neut # (Auto) 9.6 H [place] # (Auto) 3.1 H Eos # (Auto) 0.6 H Band Neuts % (Manual) 8 H Monocytes % (Manual) 12 H Abs Neuts (Manual) 9.4 H Nucleated RBCs/100 WBC 2 H Platelet Estimate High H PT 14.7 H 18.7 H BUN Creatinine Estimated GFR Calcium Total Bilirubin AST Total Protein Albumin 01/22/18 07:21 WBC RBC Hgb Hct MCV MCH RDW Plt Count [place] % (Auto) Neut # (Auto) [place] # (Auto) Eos # (Auto) Band Neuts % (Manual) Monocytes % (Manual) Abs Neuts (Manual) Nucleated RBCs/100 WBC Platelet Estimate PT BUN 21 H Creatinine 1.41 H Estimated GFR 48 L Calcium 8.3 L Total Bilirubin 1.5 H AST 67 H Total Protein 5.8 L Albumin 2.7 L Assessment and Plan - Plan 82-year-old male with w/ acute, mild T12 compression fracture Agree with TLSO and admission for pain control PT/OT Please have patient f/u in Neurosurgery clinic in 1 month with new T-L spine CT scan No indications for Neurosurgical intervention Will sign off and be available as needed
[2018-01-23 05:07] LABS: Baso # (Auto) 0.1 th/mm3 (0.0-0.2); Baso % (Auto) 0.6 % (0.0-2.0); Eos # (Auto) 0.7 th/mm3 (0.0-0.4); Hematocrit 29.7 % (39.0-51.0); Hemoglobin 10.4 gm/dL (13.0-17.0); Lymph # (Auto) 2.2 th/mm3 (1.0-4.8); Lymph % (Auto) 14.6 % (9.0-44.0); Mean Corpuscular Hemoglobin 36.5 pg (27.0-34.0); Mean Corpuscular Volume 104.3 fL (80.0-100.0); Mono # (Auto) 3.2 th/mm3 (0.0-0.9); Mono % (Auto) 21.4 % (0.0-8.0); Neut # (Auto) 8.7 th/mm3 (1.8-7.7); Neut % (Auto) 58.4 % (16.0-70.0); Platelet Count 624 th/mm3 (150-450); Red Blood Count 2.85 mil/mm3 (4.50-5.90); Red Cell Distribution Width 17.3 % (11.6-17.2); White Blood Count 14.9 th/mm3 (4.0-11.0)
[2018-01-23 05:30] LABS: Calcium 8.3 mg/dL (8.5-10.1); Carbon Dioxide 26.1 meq/L (21.0-32.0); Potassium 4.4 meq/L (3.5-5.1)
[2018-01-23] MEDS: Levothyroxine 100 MCG Tablet PO SCH (05:53)
[2018-01-23 07:01] LABS: Acanthocytes 1+; Basophilic Stippling Moderate; Pappenheimer Bodies Present
[2018-01-23 07:03] LABS: Platelet Morphology Normal (Normal)
[2018-01-23 07:04] LABS: Howell-Jolly Bodies Present
[2018-01-23] MEDS: Potassium Chloride 25 MEQ Effervescent Tablet PO SCH ×3 (08:58→17:54)
[2018-01-23] MEDS: Allopurinol 100 MG Tablet PO SCH (08:59)
[2018-01-23] MEDS: Hydroxyurea 500 MG Capsule PO SCH (08:59)
[2018-01-23] MEDS: Budesonide-Formoterol 160/4.5 MCG 6 GM Inhaler INH SCH ×2 (08:59→20:29)
[2018-01-23] MEDS: Docusate Sodium 100 MG Capsule PO SCH ×3 (08:59→17:54)
[2018-01-23] MEDS: Senna/Docusate Sodium 8.6/50 MG Tablet PO SCH ×2 (08:59→20:29)
[2018-01-23] MEDS: Ascorbic Acid 500 MG Tablet PO SCH (08:59)
[2018-01-23] MEDS: Ramipril 2.5 MG Capsule PO SCH (09:02)
--- NOTE | 2018-01-23 13:52 | MR ---
EXAM DATE: 01/23/2018 1:30 PM EST AGE/SEX: 82 years / Male INDICATIONS: Altered mental status. Recent trauma and T12 fracture. CLINICAL DATA: This is the patient's subsequent encounter. Patient reports that signs and symptoms h ave been present for 2 days and indicates a pain score of 5/10. MEDICAL/SURGICAL HISTORY: . CHF, A Fib Splenectomy. medtronic pacemaker COMPARISON: None. TECHNIQUE: Multiplanar, multisequence examination of the brain was performed without contrast. FINDINGS: Cerebrum: The ventricles are normal for age with moderate atrophic change with sulcal and ventricula r prominence. No evidence of midline shift, mass lesion, hemorrhage or acute infarction. No extraaxi al fluid collections are seen. The pituitary gland and suprasellar cistern are normal in configurati on. White Matter: On the FLAIR weighted images there is increased signal noted in the periventricular wh ite matter characteristic of chronic small vessel ischemic change. Posterior Fossa: The cerebellum and brainstem are intact. The 4th ventricle is midline. The cerebel lopontine angle is unremarkable. The cerebellar tonsils are normal in position. Diffusion Imaging: No focal areas of restricted diffusion are seen. No evidence of acute infarction . Extracranial: The visualized portions of the orbits are unremarkable. Extensive mucosal thickening i s noted in the ethmoidal air cells, frontal sinuses and maxillary sinuses. CONCLUSION: 1. No acute hemorrhage, mass or evidence of acute infarction. 2. Atrophy and chronic small vessel ischemic changes. 3. Extensive pansinusitis. Electronically signed by: Vinay Linton MD 01/23/2018 1:51 PM EST
[2018-01-23] MEDS: dilTIAZem CD 180 MG Capsule PO SCH (14:01)
--- NOTE | 2018-01-23 14:50 | P.PN ---
Subjective Interval history: Nursing denies any acute changes overnight. Patient himself agrees that he needs rehab, says he feels weak overall. Physical Exam Vital signs: Vital Signs 01/22/18 16:00 01/22/18 20:00 01/22/18 23:48 Temperature 98.4 F 95.3 F L 97.1 F L Pulse Rate 53 L 54 L 64 Respiratory Rate 13 18 18 Blood Pressure 101/49 L 113/57 L 129/61 Pulse Oximetry 96 96 98 01/23/18 04:00 01/23/18 07:47 01/23/18 11:13 Temperature 95.4 F L 98.0 F 96.7 F L Pulse Rate 65 66 69 Respiratory Rate 18 20 18 Blood Pressure 104/56 L 124/58 L 129/58 L Pulse Oximetry 98 89 L 100 01/23/18 13:57 Temperature 97.5 F L Pulse Rate 69 Respiratory Rate 16 Blood Pressure 119/59 L Pulse Oximetry 96 Intake & Output 01/22/18 01/23/18 01/23/18 18:59 06:59 18:59 Intake Total 1480 / 1480 Output Total 600 / 600 Balance 880 / 880 Intake: Oral 1480 / 1480 Output: Urine 600 / 600 Other: # Voids 1 1 Date of Last Bowel Movement 01/21/18 Narrative: Heart sounds demonstrate regular rate and rhythm Clear lungs bilaterally, unlabored breathing Has 4/5 proximal hip flexor strength bilaterally Left arm appears to be edematous diffusely which the patient says is a chronic problem for him Right arm feels normal in size Results - Labs CBC & Chem 7: 01/23/18 04:09 01/23/18 04:09 Laboratory Results - last 24 hr 01/23/18 01/23/18 04:09 04:09 WBC 14.9 H RBC 2.85 L Hgb 10.4 L Hct 29.7 L MCV 104.3 H D MCH 36.5 H MCHC 35.0 RDW 17.3 H Plt Count 624 H MPV 8.0 Prelim Diff (Auto) Slide review pending Neut % (Auto) 58.4 Lymph % (Auto) 14.6 [place] % (Auto) 21.4 H Eos % (Auto) 5.0 H Baso % (Auto) 0.6 Neut # (Auto) 8.7 H Lymph # (Auto) 2.2 [place] # (Auto) 3.2 H Eos # (Auto) 0.7 H Baso # (Auto) 0.1 WBC Differential . Diff Scan Auto diff confirmed Differential Comment . Platelet Estimate High H Platelet Morphology Normal Basophilic Stippling Moderate H Pappenheimer Bodies Present H [place] Bodies Present H Acanthocytes (Spur) 1+ H Sodium 140 Potassium 4.4 Chloride 107 Carbon Dioxide 26.1 Anion Gap 7 BUN 28 H Creatinine 1.43 H Estimated GFR 47 L Random Glucose 91 Calcium 8.3 L - Imaging Impressions Head MRI 01/23/18 00:00 CONCLUSION: 1. No acute hemorrhage, mass or evidence of acute infarction. 2. Atrophy and chronic small vessel ischemic changes. 3. Extensive pansinusitis. Assessment and Plan - Assessment (1) Fall Code(s): W19.XXXA - Unspecified fall, initial encounter Status: Acute (2) T12 compression fracture Code(s): S22.080A - Wedge compression fracture of T11-T12 vertebra, initial encounter for closed fracture Status: Acute (3) A-fib Code(s): I48.91 - Unspecified atrial fibrillation Status: Acute - Plan 82-year-old white male admitted for intractable back pain after fall injury. Intractable back pain Improved since admission -Secondary to acute insult on chronic issues including spondylolisthesis along with very mild compression fracture, discussed case with neurosurgery, no need for further workup or invasive intervention Nasal calcitonin, pain control otherwise, PT, TSLO brace ROLAND - 2/2 home lasix, hold for now, trend in AM leukocytosis - likely stress induced, afebrile, trend dysphagia - not noted on prior admissions, will obtain MR of head to see if new CVA has occurred. - continue speech therapy, current recommendations are soft mechanical diet with nectar thickened liquids -allergic to ASA -lipitor -If MRI is negative, will proceed with barium swallow and consult GI Afib Hx of CVA - on coumadin, allergic to aspirin -diltiazem Asthma -home ICS Myeloproliferative d/o -home hydroxyurea
--- NOTE | 2018-01-23 15:41 | FL ---
EXAM DATE: 01/23/2018 3:32 PM EST AGE/SEX: 82 years / Male INDICATIONS: Dysphagia. CLINICAL DATA: This is the patient's initial encounter. Patient reports that signs and symptoms have been present for 2 days and indicates a pain score of 5/10. MEDICAL/SURGICAL HISTORY: . CHF, A Fib. Splenectomy. Pacemaker. COMPARISON: None. FLUORO TIME: 1.8 IMAGE COUNT: 1 FINDINGS: A modified barium swallow was performed with speech pathology. Patient was given a variety of liquids to swallow. There was silent aspiration with thin and puree liquid consistencies. There was no aspiration with so lids or honey thick liquids. Please see speech pathology report for further details.. CONCLUSION: Silent aspiration with thin and puree liquid consistencies. Electronically signed by: Vinay Linton MD 01/23/2018 3:40 PM EST
--- NOTE | 2018-01-23 17:53 | P.CONGI ---
History of Present Illness Consult date: 01/23/18 Consult reason: Dysphagia Chief complaint: compression fx, intractable pain History of Present Illness: This patient is an 82-year-old male with past medical history significant for atrial fibrillation, asthma, hypercholesteremia, hypothyroidism and pacemaker. Patient is currently on Coumadin for atrial fibrillation. Patient was brought to the emergency room at [facility] for evaluation of complaints of mid to lower back pain post fall. CT revealed T12 compression fracture. Patient was admitted to the hospital for continued evaluation as he was observed to have unsteady gait and continued discomfort. Upon consultation, patient endorses generalized weakness. Reports difficulty swallowing solid foods. Denies any choking or coughing. Denies any painful swallowing. Unsure of unintended weight loss. Patient denies ever having had an EGD in the past. Speech therapy recommendations include soft mechanical diet with nectar thickened liquids. Our service has been consulted to help evaluate patient for dysphagia Review of Systems All other systems reviewed negative except as stated in HPI PMFSH - History History Provided By: Patient - Medical History Medical History: Medical History (Last Reviewed 01/23/18 @ 14:29 by Michelle Guevara Business Development Director, [employer]) A-fib Asthma Hypercholesterolemia Hypothyroidism Pacemaker - Surgical History Surgical History: Surgical History (Last Reviewed 01/22/18 @ 20:43 by Chiquis Booker) History of splenectomy - Family History Family History: Family History (Last Reviewed 01/22/18 @ 14:58 by Manohar Kuhn MD) Other No pertinent family history - Tobacco History Second Hand Smoke Exposure: Yes Smoking Status: Never smoker - Alcohol History How Often Do You Have a Drink Containing Alcohol: Never - Substance Use History Substance History: No History of Abuse - Travel History Recent Travel in the [place] Within the Last 8 Weeks: No Recent Travel Out of the Country Within the Last 8 Weeks: No - Immunization History Tetanus Immunization: Unsure Medications and Allergies Active Medications: Active Medications Acetaminophen (Tylenol) 650 mg PO Q4H PRN PRN Reason: Temp > 100.4 Hydrocodone Bitart/Acetaminophen ([place] 5/325) 1 tab PO Q4H PRN PRN Reason: PAIN 3-5 Last Admin: 01/23/18 14:01 Dose: 1 tab Al Hydroxide/Mg Hydroxide (Milk Of Magnesia Liq) 30 ml PO Q12H PRN PRN Reason: Mild Constipation Albuterol (Albuterol Neb (Prn)) 1.25 mg NEB Q6HR NEB PRN PRN Reason: Shortness Of Breath Allopurinol (Zyloprim) 100 mg PO DAILY [facility] Last Admin: 01/23/18 08:59 Dose: 100 mg Ascorbic Acid (Vitamin C) 500 mg PO DAILY [facility] Last Admin: 01/23/18 08:59 Dose: 500 mg Bisacodyl (Dulcolax Supp) 10 mg RECTAL DAILY PRN PRN Reason: SEVERE CONSITIPATION Budesonide/Formoterol Fumarate (Symbicort 160/4.5 Mcg Inh) 2 puff INH BID [facility] Last Admin: 01/23/18 08:59 Dose: 2 puff Diltiazem HCl (Cardizem Cd 24hr) 360 mg PO Q24H [facility] Last Admin: 01/23/18 14:01 Dose: 360 mg Docusate Sodium (Colace) 100 mg PO TID [facility] Last Admin: 01/23/18 14:01 Dose: 100 mg Hydroxyurea (Hydrea) 500 mg PO DAILY [facility] Last Admin: 01/23/18 08:59 Dose: 500 mg Lactulose (Lactulose Liq) 30 ml PO DAILY PRN PRN Reason: SEVERE CONSITIPATION Levothyroxine Sodium (Synthroid) 100 mcg PO DAILY@0600 [facility] Last Admin: 01/23/18 05:53 Dose: 100 mcg Metolazone (Zaroxolyn) 2.5 mg PO SuTuThSa [facility] Last Admin: 01/22/18 09:06 Dose: 2.5 mg Miscellaneous (Pill Splitter) 1 each OTHER UNSCH PRN PRN Reason: TABLET SPLITTIN Morphine Sulfate (Morphine Inj) 2 mg IV.PUSH Q4H PRN PRN Reason: PAIN 6-10 Multivitamins (Theragran) 1 tab PO DAILY [facility] Last Admin: 01/23/18 08:59 Dose: 1 tab Non-Formulary Medication (Meclizine [Meclizine]) 12.5 mg PO Q6H PRN PRN Reason: Vertigo Ondansetron HCl (Zofran Inj) 4 mg IV.PUSH Q6H PRN PRN Reason: NAUSEA OR VOMITING Potassium Bicarb/Potassium Chloride (K-Lyte Cl Eff) 25 meq PO TID [facility] Last Admin: 01/23/18 14:03 Dose: 25 meq Pravastatin Sodium (Pravachol) 20 mg PO HS [facility] Last Admin: 01/22/18 22:10 Dose: 20 mg Ramipril (Altace) 2.5 mg PO DAILY [facility] Last Admin: 01/23/18 09:02 Dose: 2.5 mg Senna/Docusate Sodium (Norma-Colace) 1 tab PO BID [facility] Last Admin: 01/23/18 08:59 Dose: 1 tab Sennosides (Senokot) 17.2 mg PO Q12H PRN PRN Reason: Moderate Constipation Sodium Chloride (Ns Flush) 2 ml IV.FLUSH BID [facility] Last Admin: 01/23/18 09:01 Dose: 2 ml Sodium Chloride (Ns Flush) 2 ml IV.FLUSH PRN PRN PRN Reason: FLUSH AFTER USING IV ACCESS Vitamin D (Vitamin D3) 5,000 unit PO DAILY [facility] Last Admin: 01/23/18 08:59 Dose: 5,000 unit Warfarin Sodium (Coumadin) 5 mg PO SuMoWeThSa@1600 [facility] Last Admin: 01/22/18 18:23 Dose: 5 mg Warfarin Sodium (Coumadin) 0.5 mg PO SuMoWeThSa@1600 [facility] Last Admin: 01/22/18 18:23 Dose: 0.5 mg Allergies Allergy/AdvReac Type Severity Reaction Status Date / Time aspirin Allergy Severe Hives Verified 01/21/18 05:29 erythromycin base Allergy Severe Hives Verified 01/21/18 05:29 levofloxacin Allergy Severe Hives Verified 01/21/18 05:29 Home Medications Medication Instructions Recorded Confirmed Type alendronate 70 mg PO QWEEK 11/17/17 01/21/18 History diltiazem HCl 360 mg PO DAILY 11/17/17 01/21/18 History albuterol sulfate 1.25 mg INHALATION Q6H PRN 01/21/18 01/21/18 History ascorbic acid (vitamin C) [Vitamin 500 mg PO DAILY 01/21/18 01/21/18 History C] cod liver oil 5 ml PO DAILY 01/21/18 01/21/18 History cyanocobalamin (vitamin B-12) 1,000 mcg SUBCUT QMONTH 01/21/18 01/21/18 History folic acid 800 mcg PO DAILY 01/21/18 01/21/18 History hydroxyurea 500 mg PO DAILY 01/21/18 01/21/18 History metolazone 2.5 mg PO 4XW 01/21/18 01/21/18 History metolazone 5 mg PO 3XW 01/21/18 01/21/18 History vdnrotgyhaed-stdc-sfzej acid 1 tab PO DAILY 01/21/18 01/21/18 History [Centrum] polyethylene glycol 3350 [Miralax] 17 g PO DAILY PRN 01/21/18 01/21/18 History warfarin [Coumadin] 5 mg PO 2XWEEK 01/21/18 01/21/18 History warfarin [Coumadin] 5.5 mg PO 5XW 01/21/18 01/21/18 History Exam Vital signs: Vital Signs 01/22/18 20:00 01/22/18 23:48 01/23/18 04:00 Temperature 95.3 F L 97.1 F L 95.4 F L Pulse Rate 54 L 64 65 Respiratory Rate 18 18 18 Blood Pressure 113/57 L 129/61 104/56 L Pulse Oximetry 96 98 98 01/23/18 07:47 01/23/18 11:13 01/23/18 13:57 Temperature 98.0 F 96.7 F L 97.5 F L Pulse Rate 66 69 69 Respiratory Rate 20 18 16 Blood Pressure 124/58 L 129/58 L 119/59 L Pulse Oximetry 89 L 100 96 Intake & Output 01/22/18 01/23/18 01/23/18 18:59 06:59 18:59 Intake Total 1480 / 1480 Output Total 600 / 600 Balance 880 / 880 Intake: Oral 1480 / 1480 Output: Urine 600 / 600 Other: # Voids 1 1 Date of Last Bowel Movement 01/21/18 - Constitutional chronically ill appearing - Routine HEENT Exam Head: Present: normocephalic ENT: Present: mucous membranes dry - Routine Respiratory Exam Present: CTA bilaterally - Routine Cardiovascular Exam Present: RRR - Routine Abdominal Exam Present: soft, normoactive bowel sounds. Absent: tenderness, distended, guarding, firm - Routine Skin Exam Present: dry, warm - Routine Neurological Exam Present: alert Results - Labs CBC & Chem 7: 01/23/18 04:09 01/23/18 04:09 Labs: Laboratory Results - last 24 hr 01/23/18 01/23/18 04:09 04:09 WBC 14.9 H RBC 2.85 L Hgb 10.4 L Hct 29.7 L MCV 104.3 H D MCH 36.5 H MCHC 35.0 RDW 17.3 H Plt Count 624 H MPV 8.0 Prelim Diff (Auto) Slide review pending Neut % (Auto) 58.4 Lymph % (Auto) 14.6 [place] % (Auto) 21.4 H Eos % (Auto) 5.0 H Baso % (Auto) 0.6 Neut # (Auto) 8.7 H Lymph # (Auto) 2.2 [place] # (Auto) 3.2 H Eos # (Auto) 0.7 H Baso # (Auto) 0.1 WBC Differential . Diff Scan Auto diff confirmed Differential Comment . Platelet Estimate High H Platelet Morphology Normal Basophilic Stippling Moderate H Pappenheimer Bodies Present H [place] Bodies Present H Acanthocytes (Spur) 1+ H Sodium 140 Potassium 4.4 Chloride 107 Carbon Dioxide 26.1 Anion Gap 7 BUN 28 H Creatinine 1.43 H Estimated GFR 47 L Random Glucose 91 Calcium 8.3 L - Imaging Impressions Head MRI 01/23/18 00:00 CONCLUSION: 1. No acute hemorrhage, mass or evidence of acute infarction. 2. Atrophy and chronic small vessel ischemic changes. 3. Extensive pansinusitis. Videofluoroscopic Swallow 01/23/18 00:00 CONCLUSION: Silent aspiration with thin and puree liquid consistencies. Assessment and Plan (1) Dysphagia Status: Acute Code(s): R13.10 - Dysphagia, unspecified - Plan This patient is an 82-year-old male with past medical history significant for atrial fibrillation, asthma, hypercholesteremia, hypothyroidism and pacemaker. Patient is currently on Coumadin for atrial fibrillation. Patient was brought to the emergency room at [facility] for evaluation of complaints of mid to lower back pain post fall. CT revealed T12 compression fracture. Patient was admitted to the hospital for continued evaluation as he was observed to have unsteady gait and continued discomfort. Upon consultation, patient endorses generalized weakness. Reports difficulty swallowing solid foods. Denies any choking or coughing. Denies any painful swallowing. Unsure of unintended weight loss. Patient denies ever having had an EGD in the past. Speech therapy recommendations include soft mechanical diet with nectar thickened liquids. Our service has been consulted to help evaluate patient for dysphagia Dysphagia Patient endorses difficulty swallowing solid foods. Speech therapy recommendations include soft mechanical diet with nectar thickened liquids. 01/23/2018 videofluoroscopic swallow--Silent aspiration with thin and puree liquid consistencies. 01/23/2018 speech modified barium swallow-- MECHANICAL SOFT DIET WITH ALL LIQUIDS THICKENED TO HONEY CONSISTENCY Plan -Diet as per speech therapy recommendation -Aspiration precautions -CT chest with contrast to rule out esophageal neoplasm -Zofran as needed -Analgesic as per attending -Supportive care -Further recommendations to follow This patient has been seen by myself and Dr. Sierra and this note is written on his behalf - Attending Attestation Dr. Sierra
--- NOTE | 2018-01-23 19:58 | CT ---
EXAM DATE: 01/23/2018 7:48 PM EST AGE/SEX: 82 years / Male INDICATIONS: Spinal fracture; suspected neoplasm. CLINICAL DATA: This is the patient's initial encounter. Patient reports that signs and symptoms have been present for 1 day and indicates a pain score of 5/10. MEDICAL/SURGICAL HISTORY: Asthma. Cardiovascular disease. Atrial fibrillation Pacemaker. Splenec ana maría. RADIATION DOSE: 5.14 CTDI (mGy) COMPARISON: No prior exams available for comparison. TECHNIQUE: Multiple contiguous axial images were obtained through the chest during bolus infusion of 55 ml Omnipaque 350 (iohexol) nonionic water-soluble contrast as a single exam dose. Images were obtained in suspended respiration using multiple row detector helical technique. Using automated exp osure control and adjustment of the mA and/or kV according to patient size, radiation dose was kept a s low as reasonably achievable to obtain optimal diagnostic quality images. DICOM format image data is available electronically for review and comparison. FINDINGS: Lungs: Bibasilar consolidation. There are some patchy nodular densities in the right lower lobe, rig ht middle lobe and along the major fissure. 19 mm groundglass density in the anterior left upper lobe . Mediastinum: There is good visualization of the great vessels of the middle mediastinum. Right hilar adenopathy measures 2.4 cm. There is some mildly prominent precarinal adenopathy. Cardiomegaly and c oronary artery calcifications. Pleurae: No evidence of focal thickening or pleural effusion. Axillae: Unremarkable. Bony Structures: Unremarkable. Miscellaneous: The examination was extended to include the upper abdomen, and both adrenal glands ar e normal in size and configuration. Left-sided pacemaker. CONCLUSION: 1. There is some mild poorly prominent adenopathy in the right hilum and precarinal region. 2. Bibasilar consolidation and nodular patchy nodular densities in the right middle lobe, along the major fissure and right middle lobe. PET/CT scan may be warranted on a nonemergent basis. 3. Small pleural effusions and bibasilar consolidation. Electronically signed by: Oswaldo Kumar MD 01/23/2018 7:57 PM EST
[2018-01-23] MEDS: Morphine Sulfate Inj 2 MG/ML Vial IV.PUSH PRN (20:27)
[2018-01-24] MEDS: Morphine Sulfate Inj 2 MG/ML Vial IV.PUSH PRN ×3 (00:32→20:50)
[2018-01-24] MEDS: Levothyroxine 100 MCG Tablet PO SCH (05:39)
[2018-01-24] MEDS: Allopurinol 100 MG Tablet PO SCH (09:02)
[2018-01-24] MEDS: Docusate Sodium 100 MG Capsule PO SCH ×3 (09:02→19:36)
[2018-01-24] MEDS: Senna/Docusate Sodium 8.6/50 MG Tablet PO SCH ×2 (09:02→21:34)
[2018-01-24] MEDS: Hydroxyurea 500 MG Capsule PO SCH (09:02)
[2018-01-24] MEDS: Ascorbic Acid 500 MG Tablet PO SCH (09:02)
[2018-01-24] MEDS: Potassium Chloride 25 MEQ Effervescent Tablet PO SCH ×4 (09:02→19:36)
[2018-01-24] MEDS: Budesonide-Formoterol 160/4.5 MCG 6 GM Inhaler INH SCH ×2 (09:03→21:55)
[2018-01-24] MEDS: Ramipril 2.5 MG Capsule PO SCH (09:03)
[2018-01-24 13:24] LABS: INR 5.6 Ratio; Prothrombin Time 56.1 sec (9.8-11.6)
[2018-01-24] MEDS: dilTIAZem CD 180 MG Capsule PO SCH (13:51)
--- NOTE | 2018-01-24 14:31 | P.PNIM ---
Subjective Interval history: Patient seen and examined this morning at the bedside No acute complaints or issues of note + back pain but is doing well with pain medication and the TSLO bracing Physical Exam Vital signs: Last Vital Signs Temp 98.7 F 01/24/18 12:00 Pulse 60 01/24/18 12:00 Resp 18 01/24/18 12:00 BP 116/55 L 01/24/18 12:00 Pulse Ox 94 L 01/24/18 12:00 Intake & Output 01/22/18 01/23/18 01/24/18 01/25/18 06:59 06:59 06:59 06:59 Intake Total 300 / 300 1480 / 1480 440 / 440 Output Total 320 / 320 600 / 600 500 / 500 Balance -20 / -20 880 / 880 -60 / -60 Weight 90.718 kg gen: NAD cvs: S1/s2, irregular irregular resp: reduced breath sounds at the lung base gi: soft, non tender, non distended, no guarding or rebound ext: 2+ calf tenderness, no edema Neuro: sensation intact Ue/LE bilaterally. no facial droop. Results Labs CBC & Chem 7: 01/23/18 04:09 01/23/18 04:09 Imaging Imaging: Impressions Chest CT 01/23/18 00:00 CONCLUSION: 1. There is some mild poorly prominent adenopathy in the right hilum and precarinal region. 2. Bibasilar consolidation and nodular patchy nodular densities in the right middle lobe, along the major fissure and right middle lobe. PET/CT scan may be warranted on a nonemergent basis. 3. Small pleural effusions and bibasilar consolidation. Videofluoroscopic Swallow 01/23/18 00:00 CONCLUSION: Silent aspiration with thin and puree liquid consistencies. Assessment and Plan (1) Dysphagia: Code(s): R13.10 - Dysphagia, unspecified Status: Acute Plan Orthopedics: Intractable back pain -pain likely secondary to acute insult on chronic problems including spondylolisthesis along with very mild compression fracture. Case previously discussed with neurosurgery, no need for further workup or invasive intervention. Outpatient follow up Nasal calcitonin, pain control otherwise, TSLO brace daily - PT consultation completed. Accepted for [facility] Nephrology: Acute kidney injury - suspect this to be 2/2 home lasix. Continue to hold for now and resume outpatient after chem 8 monitoring Gastroenterology: dysphagia - GI consulted and recommendations appreciated. - continue speech therapy, current recommendations are soft mechanical diet with nectar thickened liquids Cardiology: Afib ( on coumadin) - INR > 5 without bleeding. Will suspend further doses for now - continue diltiazem Neurology: Hx of CVA - on coumadin, allergic to aspirin Pulmonary: Asthma -home ICS Hematology: Myeloproliferative d/o -home hydroxyurea code: fc dvt ppx dispo: pending transfer after GI evaluation completed for dysphagia. Progress Note: Quality VTE Deep Vein Thrombosis/Pulmonary Embolism Present on Admission: No _ (1) Dysphagia Qualifiers: Dysphagia type:
[2018-01-24] MEDS: Sod Chloride 0.9% Inj 1,000 ML IV.CONT SCH (16:00)
--- NOTE | 2018-01-24 16:48 | P.PNGI ---
Subjective Interval history: Patient resting comfortably Denies discomfort at this time Physical Exam Vital signs: Vital Signs 01/23/18 19:35 01/23/18 20:00 01/24/18 00:00 Temperature 97.7 F 97.7 F Pulse Rate 60 61 63 Respiratory Rate 22 19 Blood Pressure 130/58 L 120/59 L Pulse Oximetry 95 92 L 01/24/18 00:55 01/24/18 04:10 01/24/18 08:00 Temperature 97.5 F L 97.5 F L Pulse Rate 62 55 L Respiratory Rate 18 20 16 Blood Pressure 108/54 L 129/60 Pulse Oximetry 94 L 93 L 01/24/18 12:00 01/24/18 16:00 Temperature 98.7 F 97.5 F L Pulse Rate 60 64 Respiratory Rate 18 18 Blood Pressure 116/55 L 118/51 L Pulse Oximetry 94 L 92 L Intake & Output 01/23/18 01/24/18 01/24/18 18:59 06:59 18:59 Intake Total 440 / 440 Output Total 500 / 500 Balance -500 / -500 440 / 440 Intake: Oral 440 / 440 Output: Urine 500 / 500 Other: # Voids 1 2 # Incontinent Voids 2 Date of Last Bowel Movement 01/21/18 - Constitutional no acute distress - Routine HEENT Exam Head: Present: normocephalic ENT: Present: mucous membranes dry - Routine Respiratory Exam Absent: accessory muscle use - Routine Abdominal Exam Present: soft, normoactive bowel sounds. Absent: tenderness, distended - Routine Skin Exam Present: dry, warm - Routine Neurological Exam Present: alert - Urinary Catheter Management Straight Cath placed during this visit: yes Reason for continuing: Acute urinary retention Insertion date: 01/25/18 Insertion time: 16:22 Results - Labs CBC & Chem 7: 01/25/18 02:26 01/25/18 02:26 Laboratory Results - last 24 hr 01/24/18 12:45 PT 56.1 H D INR 5.6 - Imaging Impressions Chest CT 01/23/18 00:00 CONCLUSION: 1. There is some mild poorly prominent adenopathy in the right hilum and precarinal region. 2. Bibasilar consolidation and nodular patchy nodular densities in the right middle lobe, along the major fissure and right middle lobe. PET/CT scan may be warranted on a nonemergent basis. 3. Small pleural effusions and bibasilar consolidation. Assessment and Plan (1) Dysphagia Status: Acute Code(s): R13.10 - Dysphagia, unspecified - Plan This patient is an 82-year-old male with past medical history significant for atrial fibrillation, asthma, hypercholesteremia, hypothyroidism and pacemaker. Patient is currently on Coumadin for atrial fibrillation. Patient was brought to the emergency room at [facility] for evaluation of complaints of mid to lower back pain post fall. CT revealed T12 compression fracture. Patient was admitted to the hospital for continued evaluation as he was observed to have unsteady gait and continued discomfort. Upon consultation, patient endorses generalized weakness. Reports difficulty swallowing solid foods. Denies any choking or coughing. Denies any painful swallowing. Unsure of unintended weight loss. Patient denies ever having had an EGD in the past. Speech therapy recommendations include soft mechanical diet with nectar thickened liquids. Our service has been consulted to help evaluate patient for dysphagia Dysphagia Patient endorses difficulty swallowing solid foods. Speech therapy recommendations include soft mechanical diet with nectar thickened liquids. 01/23/2018 videofluoroscopic swallow--Silent aspiration with thin and puree liquid consistencies. 01/23/2018 speech modified barium swallow-- MECHANICAL SOFT DIET WITH ALL LIQUIDS THICKENED TO HONEY CONSISTENCY 01/24/2018 01/23/2018 CT chest revealed the followin.There is some mild poorly prominent adenopathy in the right hilum and precarinal region. 2.Bibasilar consolidation and nodular patchy nodular densities in the right middle lobe, along the major fissure and right middle lobe. PET/CT scan may be warranted on a nonemergent basis. 3. Small pleural effusions and bibasilar consolidation. Dr. Barlow to discuss nutritional options with patient. Plan -Diet as per speech therapy recommendation -Aspiration precautions -Patient will require gastrostomy or jejunostomy tube for nutritional needs in light of increased risk for silent aspiration -Zofran as needed -Analgesic as per attending -Supportive care -IR to place feeding tube -GI will sign off at this time, please notify for further needs This patient has been seen by myself and Dr. Sierra and this note is written on his behalf - Attending Attestation Dr. Sierra
[2018-01-25] MEDS: Sod Chloride 0.9% Inj 1,000 ML IV.CONT SCH ×2 (04:26→15:39)
[2018-01-25] MEDS: Levothyroxine 100 MCG Tablet PO SCH (06:53)
[2018-01-25 08:03] LABS: Hematocrit 30.1 % (39.0-51.0); Hemoglobin 10.1 gm/dL (13.0-17.0); Mean Corpuscular HGB Conc 33.5 % (32.0-36.0); Mean Corpuscular Hemoglobin 36.5 pg (27.0-34.0); Mean Corpuscular Volume 108.9 fL (80.0-100.0); Mean Platelet Volume 8.1 fL (7.0-11.0); Platelet Count 688 th/mm3 (150-450); Red Blood Count 2.76 mil/mm3 (4.50-5.90); Red Cell Distribution Width 17.5 % (11.6-17.2); White Blood Count 15.6 th/mm3 (4.0-11.0)
[2018-01-25 08:08] LABS: Prothrombin Time 77.9 sec (9.8-11.6)
[2018-01-25 08:18] LABS: INR 7.8 Ratio
[2018-01-25 08:24] LABS: Calcium 8.4 mg/dL (8.5-10.1); Carbon Dioxide 23.4 meq/L (21.0-32.0); Magnesium 2.8 mg/dL (1.5-2.5); Potassium 5.1 meq/L (3.5-5.1)
[2018-01-25] MEDS: Ramipril 2.5 MG Capsule PO SCH (09:22)
[2018-01-25] MEDS: Senna/Docusate Sodium 8.6/50 MG Tablet PO SCH ×2 (09:22→22:20)
[2018-01-25] MEDS: Hydroxyurea 500 MG Capsule PO SCH (09:22)
[2018-01-25] MEDS: Allopurinol 100 MG Tablet PO SCH (09:22)
[2018-01-25] MEDS: Potassium Chloride 25 MEQ Effervescent Tablet PO SCH ×3 (09:23→17:38)
[2018-01-25] MEDS: Docusate Sodium 100 MG Capsule PO SCH ×3 (09:23→17:38)
[2018-01-25] MEDS: Ascorbic Acid 500 MG Tablet PO SCH (09:23)
[2018-01-25] MEDS: Budesonide-Formoterol 160/4.5 MCG 6 GM Inhaler INH SCH ×2 (09:23→22:20)
[2018-01-25] MEDS: Morphine Sulfate Inj 2 MG/ML Vial IV.PUSH PRN ×2 (12:09→16:26)
[2018-01-25] MEDS: dilTIAZem CD 180 MG Capsule PO SCH (15:40)
--- NOTE | 2018-01-25 16:28 | P.PNIM ---
Subjective Interval history: Patient seen and evaluated this morning at bedside. Patient without new complaints of headache, numbness or tingling in the lower extremity. Case reviewed with nursing and they report that patient has been retaining urine overnight. Patient received straight catheterization overnight with no Roman placement. INR elevated this morning as well to 7.8. Discussion held at bedside with patient regarding PEG placement as gastroenterology consultation recommended definitive placement of PEG for nutrition. Patient at this time is open to the idea of a PEG but given the fact that he has elevated INR of 7.8 at this time it is not feasible. Also discussed case with peer-to- peer as patient hospitalization was declined. Explained that patient currently has issues with microaspiration and definitive therapy for nutritional benefit is needed as patient has third spacing of fluid and has not been able to get definitive p.o. intake. Physical Exam Vital signs: Last Vital Signs Temp 97.2 F L 01/25/18 12:00 Pulse 89 01/25/18 12:00 Resp 16 01/25/18 12:00 BP 123/78 01/25/18 12:00 Pulse Ox 94 L 01/25/18 12:00 Intake & Output 01/23/18 01/24/18 01/25/18 01/26/18 06:59 06:59 06:59 06:59 Intake Total 1480 / 1480 440 / 440 1000 / 1000 1000 / 1000 Output Total 600 / 600 500 / 500 450 / 450 Balance 880 / 880 -60 / -60 550 / 550 1000 / 1000 General: No acute distress, conversational Cardiovascular: S1/S2 Respiratory: Decreased breath sound but patient body habitus is also large. No intercostal muscle use Gastrointestinal: Soft, nontender, nondistended, no guarding or rebound appreciated Extremity: No calf tenderness Urinary Catheter Management Straight: Cath placed during this visit: no Results Labs CBC & Chem 7: 01/25/18 02:26 01/25/18 02:26 Assessment and Plan (1) Dysphagia: Code(s): R13.10 - Dysphagia, unspecified Status: Acute Plan Orthopedics: Intractable back pain, cervical compression fracture -pain likely secondary to acute insult on chronic problems including spondylolisthesis along with very mild compression fracture. Case previously discussed with neurosurgery, no need for further workup or invasive intervention. Outpatient follow up Nasal calcitonin, pain control otherwise, LO brace daily - PT consultation completed. Accepted for [facility] Nephrology: Acute kidney injury - suspect this to be 2/2 home lasix. Continue to hold for now and resume outpatient after chem 8 monitoring. Patient with slightly improved creatinine to 1.33. Increasing BUN suggestive of prerenal etiology Gastroenterology: dysphagia with evidence of microaspiration - GI consulted and recommendations appreciated. - continue speech therapy, current recommendations are soft mechanical diet with nectar thickened liquids Cardiology: Afib ( on coumadin), supratherapeutic INR - INR > 7.8. With increasing BUN possibly early indicator of GI bleed will order guaiac for patient in setting of supratherapeutic INR while on Coumadin.. Hemoglobin remaining stable over the last 72 hours 10 mg IV vitamin K. If INR still elevated may consider repeating second dose versus FFP vs K Centra if acute bleeding is discovered INR monitoring for 01/26. For now patient is not a candidate for any invasive procedure. This was discussed briefly with gastroenterology team 01/25 at 4:30 PM. For now we will focus on reversal of elevated INR - continue diltiazem Neurology: Hx of CVA -Holding Coumadin, allergic to aspirin Pulmonary: Asthma -home ICS Hematology: Myeloproliferative d/o -home hydroxyurea code: fc dvt ppx. Elevated INR dispo: MedSurg. Case was reviewed on 01/25 during a peer to peer at which point case was made that patient required more than 72-hour observational status given elevated INR and microaspiration noted on inpatient studies. At this time will consider PEG placement which was discussed with patient at the bedside on 01/25 and he was open to the idea. Explained to patient that this placement of PEG could be reversed if he continued to have successful progression with speech therapy. Will request speech to evaluate patient again on 01/25. Progress Note: Quality VTE Deep Vein Thrombosis/Pulmonary Embolism Present on Admission: No _ (1) Dysphagia Qualifiers: Dysphagia type:
--- NOTE | 2018-01-25 17:39 | XR ---
EXAM DATE: 01/25/2018 5:28 PM EST AGE/SEX: 82 years / Male INDICATIONS: Short of breath. CLINICAL DATA: This is the patient's initial encounter. Patient reports that signs and symptoms have been present for 1 day and indicates a pain score of 0/10. MEDICAL/SURGICAL HISTORY: Cardiovascular disease. Pacemaker. COMPARISON: [facility] – [place], CHEST 1V SINGLE AP, 11/17/2017. . FINDINGS: Today's exam is compared to the prior study. There is diffuse bilateral interstitial and airspace dis ease throughout both lung yanes. The heart size is diffusely enlarged. There is no evidence of pneum othorax. There is blunting of the costophrenic angles suggestive of bilateral effusions. There is a c ardiac pacemaker overlying the left chest. The bony structures are grossly intact. CONCLUSION: Diffuse bilateral interstitial and airspace infiltrates suggestive of pulmonary edema versus pneumoni a. Electronically signed by: Sam Munson MD 01/25/2018 5:37 PM EST
[2018-01-25] MEDS ORDERED: Phytonadione Inj 10 MG in Sodium Chlor 0.9% Inj 50 ML IV.SIG ONE (18:00)
[2018-01-26] MEDS: Levothyroxine 100 MCG Tablet PO SCH (06:09)
[2018-01-26] MEDS: Sod Chloride 0.9% Inj 1,000 ML IV.CONT SCH (06:10)
[2018-01-26] MEDS: Docusate Sodium 100 MG Capsule PO SCH ×3 (08:54→17:51)
[2018-01-26] MEDS: Calcitonin Salmon Nasal 200 UNITS/Actuation - (3.7 ML) NASAL SCH (08:55)
[2018-01-26] MEDS: Ramipril 2.5 MG Capsule PO SCH (08:55)
[2018-01-26] MEDS: Hydroxyurea 500 MG Capsule PO SCH (08:55)
[2018-01-26] MEDS: Ascorbic Acid 500 MG Tablet PO SCH (08:55)
[2018-01-26] MEDS: Potassium Chloride 25 MEQ Effervescent Tablet PO SCH ×3 (08:55→17:51)
[2018-01-26] MEDS: Allopurinol 100 MG Tablet PO SCH (08:55)
[2018-01-26] MEDS: Senna/Docusate Sodium 8.6/50 MG Tablet PO SCH ×2 (08:55→20:02)
[2018-01-26] MEDS: Budesonide-Formoterol 160/4.5 MCG 6 GM Inhaler INH SCH ×2 (09:00→22:20)
[2018-01-26 10:19] LABS: Hematocrit 30.1 % (39.0-51.0); Hemoglobin 10.3 gm/dL (13.0-17.0); Mean Corpuscular HGB Conc 34.3 % (32.0-36.0); Mean Corpuscular Hemoglobin 36.6 pg (27.0-34.0); Mean Corpuscular Volume 106.7 fL (80.0-100.0); Mean Platelet Volume 8.2 fL (7.0-11.0); Platelet Count 693 th/mm3 (150-450); Red Blood Count 2.82 mil/mm3 (4.50-5.90); Red Cell Distribution Width 17.7 % (11.6-17.2); White Blood Count 15.4 th/mm3 (4.0-11.0)
[2018-01-26 10:29] LABS: INR 1.5 Ratio
[2018-01-26 10:41] LABS: Calcium 8.2 mg/dL (8.5-10.1); Carbon Dioxide 25.5 meq/L (21.0-32.0); Potassium 4.8 meq/L (3.5-5.1)
[2018-01-26] MEDS: dilTIAZem CD 180 MG Capsule PO SCH (12:32)
--- NOTE | 2018-01-26 14:04 | P.PNIM ---
Subjective Interval history: Vision seen and evaluated this afternoon at bedside. Patient without acute complaints such as fever, chills, sore throat. Patient is able to tolerate p.o. diet at the bedside and does not appear to have any difficulty tolerating p.o. diet. Speech recommendations appreciated via EMR INR improved to 1.5 status post 10 mg of vitamin K administration for supratherapeutic INR Hemoglobin noted to be stable at 10.3 over the last 48 hours Roman catheter was placed on 01/25 for urinary retention. Roman with clear yellow urine at this time No acute complaints at this time by the patient included chest pain, palpitations. Patient left upper extremity noted to be asymmetrically swollen compared to the right upper extremity. Patient denies any pain in the area however. Will discontinue fluids at this time and order Doppler ultrasound Gastroenterology currently signed off case and recommended the patient have definitive placement of gastrostomy tube. Chest x-ray reviewed from 01/25 and appears the patient does have possible overload with fluid. Will give 40 mg Lasix Physical Exam Vital signs: Last Vital Signs Temp 97.4 F L 01/26/18 12:00 Pulse 63 01/26/18 12:00 Resp 16 01/26/18 13:32 BP 101/52 L 01/26/18 12:00 Pulse Ox 93 L 01/26/18 12:00 Intake & Output 01/24/18 01/25/18 01/26/18 01/27/18 06:59 06:59 06:59 06:59 Intake Total 440 / 440 1000 / 1000 2531 / 2531 Output Total 500 / 500 450 / 450 900 / 900 Balance -60 / -60 550 / 550 1631 / 1631 Weight 94.9 kg General: No acute distress HEENT: EOMI Cardiovascular: S1/S2 Respiratory: Decreased breath sounds bilaterally. No intercostal muscle use. No wheezing noted Gastroenterology: Soft, nontender, nondistended, no guarding or rebound Vascular: Left upper extremity asymmetrically swollen compared to the right upper extremity. No IV noted to be in the area Urinary Catheter Management Straight: Cath placed during this visit: yes Urethral indwelling: Yes Reason for continuing: Acute urinary retention Insertion date: 01/25/18 Insertion time: 16:22 Results Labs CBC & Chem 7: 01/26/18 09:48 01/26/18 09:48 Imaging Imaging: Impressions Chest X-Ray 01/25/18 00:00 CONCLUSION: Diffuse bilateral interstitial and airspace infiltrates suggestive of pulmonary edema versus pneumonia. Assessment and Plan (1) Dysphagia: Code(s): R13.10 - Dysphagia, unspecified Status: Acute Plan Orthopedics: Intractable back pain, cervical compression fracture -pain likely secondary to acute insult on chronic problems including spondylolisthesis along with very mild compression fracture. Case previously discussed with neurosurgery, no need for further workup or invasive intervention. Outpatient follow up Nasal calcitonin, pain control otherwise, TSLO brace daily - PT consultation completed. Nephrology: Acute kidney injury -Currently resolved. Gastroenterology: dysphagia with evidence of microaspiration -GI consulted and recommendations appreciated previously. Recommend gastrostomy tube placement. Currently signed off - continue speech therapy, current recommendations are soft mechanical diet with nectar thickened liquids Cardiology: Afib ( on coumadin) -Currently INR normalized status post 10 mg IV vitamin K. Resume Coumadin with careful INR daily check - continue diltiazem Neurology: Hx of CVA -Coumadin, allergic to aspirin Pulmonary: Asthma -home ICS Urology: Urinary retention Patient noted on 01/25 to have urinary retention with gallbladder sono. Placement of Roman catheter. Suspect this may be secondary to limited mobility. Consider trial of void in 24-48 hours. Hematology: Myeloproliferative d/o -home hydroxyurea code: fc dvt ppx., Coumadin dispo: MedSurg. Case was reviewed on 01/25 during a peer to peer at which point case was made that patient required more than 72-hour observational status given elevated INR and microaspiration noted on inpatient studies. At this time will consider PEG placement which was discussed with patient at the bedside on 01/25 and he was open to the idea. E Progress Note: Quality VTE Deep Vein Thrombosis/Pulmonary Embolism Present on Admission: No _ (1) Dysphagia Qualifiers: Dysphagia type:
[2018-01-26 15:26] LABS: ABG Base Excess -0.4 mmol/L (-2-2); ABG PCO2 40 mmHg (38-42); ABG PO2 73 mmHg (61-120)
--- NOTE | 2018-01-26 17:05 | P.CONCC ---
History of Present Illness Service: Critical care medicine Consult date: 01/26/18 Reason for Consult: Respiratory distress Primary Care Provider: Richie Martinez MD Chief Complaint: Difficulty breathing History of Present Illness: This 82-year-old gentleman has been undergoing evaluation for chronic lower back pain related to a mild compression fracture in the lumbar region. He arrived to the hospital with acute kidney injury and has responded well to gentle hydration. Noteworthy is a radiographic exam with bilateral dense infiltrate typical of fluid overload or pneumonia. His response to Lasix earlier today was not what I would have expected and his neck veins on arrival are flat. Fluid balance over the past several days is not problematic on quick review. There is a mild leukocytosis but the patient is afebrile. In short, he is clearly in respiratory distress with accelerated respiratory rate and increased effort, but I am not convinced this is simple fluid overload. Microaspiration was noted by speech pathology for which the gentleman was prepared for PEG tube placement but delayed because of a coagulopathy associated with Coumadin use for permanent atrial fibrillation. I have discussed the case in detail with Dr. Tyler Barlow from the hospitalist service and appreciate immensely his input. Review of Systems Short of breath, no chest pain. Thirsty. PMFSH - History History Provided By: Patient - Medical History Medical History: Medical History (Last Reviewed 01/26/18 @ 08:44 by Angie Sepulveda) A-fib Asthma Hypercholesterolemia Hypothyroidism Pacemaker - Surgical History Surgical History: Surgical History (Last Reviewed 01/26/18 @ 07:51 by Sofi Miranda) History of splenectomy - Family History Family History: Family History (Last Reviewed 01/25/18 @ 07:28 by Mercy Leary) Other No pertinent family history - Tobacco History Second Hand Smoke Exposure: Yes Smoking Status: Never smoker - Alcohol History How Often Do You Have a Drink Containing Alcohol: Never - Substance Use History Substance History: No History of Abuse - Travel History Recent Travel in the [place] Within the Last 8 Weeks: No Recent Travel Out of the Country Within the Last 8 Weeks: No - Immunization History Tetanus Immunization: Unsure Medications and Allergies Active Medications: Active Medications Acetaminophen (Tylenol) 650 mg PO Q4H PRN PRN Reason: Temp > 100.4 Hydrocodone Bitart/Acetaminophen ([place] 5/325) 1 tab PO Q4H PRN PRN Reason: PAIN 3-5 Last Admin: 01/26/18 09:26 Dose: 1 tab Al Hydroxide/Mg Hydroxide (Milk Of Magnesia Liq) 30 ml PO Q12H PRN PRN Reason: Mild Constipation Last Admin: 01/26/18 08:55 Dose: 30 ml Albuterol (Duoneb Neb (Prn)) 1 ampul NEB Q6HR NEB PRN PRN Reason: SHORTNESS OF BREATH Last Admin: 01/26/18 09:27 Dose: 1 ampul Allopurinol (Zyloprim) 100 mg PO DAILY [facility] Last Admin: 01/26/18 08:55 Dose: 100 mg Ascorbic Acid (Vitamin C) 500 mg PO DAILY [facility] Last Admin: 01/26/18 08:55 Dose: 500 mg Bisacodyl (Dulcolax Supp) 10 mg RECTAL DAILY PRN PRN Reason: SEVERE CONSITIPATION Last Admin: 01/26/18 12:34 Dose: 10 mg Budesonide/Formoterol Fumarate (Symbicort 160/4.5 Mcg Inh) 2 puff INH BID [facility] Last Admin: 01/26/18 09:00 Dose: 2 puff Calcitonin River (Calcitonin River Nasal) 1 sprays NASAL DAILY [facility] Last Admin: 01/26/18 08:55 Dose: 1 sprays Diltiazem HCl (Cardizem Cd 24hr) 360 mg PO Q24H [facility] Last Admin: 01/26/18 12:32 Dose: 360 mg Docusate Sodium (Colace) 100 mg PO TID [facility] Last Admin: 01/26/18 12:33 Dose: 100 mg Furosemide (Lasix Inj) 40 mg IV.PUSH ONCE ONE Stop: 01/26/18 22:01 Hydroxyurea (Hydrea) 500 mg PO DAILY [facility] Last Admin: 01/26/18 08:55 Dose: 500 mg Lactulose (Lactulose Liq) 30 ml PO DAILY PRN PRN Reason: SEVERE CONSITIPATION Last Admin: 01/26/18 08:55 Dose: 30 ml Levothyroxine Sodium (Synthroid) 100 mcg PO DAILY@0600 [facility] Last Admin: 01/26/18 06:09 Dose: 100 mcg Metolazone (Zaroxolyn) 2.5 mg PO SuTuThSa [facility] Last Admin: 01/26/18 08:55 Dose: 2.5 mg Miscellaneous (Pill Splitter) 1 each OTHER UNSCH PRN PRN Reason: TABLET SPLITTIN Morphine Sulfate (Morphine Inj) 2 mg IV.PUSH Q4H PRN PRN Reason: PAIN 6-10 Last Admin: 01/25/18 16:26 Dose: 2 mg Multivitamins (Theragran) 1 tab PO DAILY [facility] Last Admin: 01/26/18 08:55 Dose: 1 tab Non-Formulary Medication (Meclizine [Meclizine]) 12.5 mg PO Q6H PRN PRN Reason: Vertigo Ondansetron HCl (Zofran Inj) 4 mg IV.PUSH Q6H PRN PRN Reason: NAUSEA OR VOMITING Last Admin: 01/24/18 09:21 Dose: 4 mg Potassium Bicarb/Potassium Chloride (K-Lyte Cl Eff) 25 meq PO TID [facility] Last Admin: 01/26/18 12:45 Dose: 25 meq Pravastatin Sodium (Pravachol) 20 mg PO HS [facility] Last Admin: 01/25/18 22:19 Dose: 20 mg Ramipril (Altace) 2.5 mg PO DAILY [facility] Last Admin: 01/26/18 08:55 Dose: 2.5 mg Senna/Docusate Sodium (Norma-Colace) 1 tab PO BID [facility] Last Admin: 01/26/18 08:55 Dose: 1 tab Sennosides (Senokot) 17.2 mg PO Q12H PRN PRN Reason: Moderate Constipation Last Admin: 01/26/18 08:55 Dose: 17.2 mg Sodium Chloride (Ns Flush) 2 ml IV.FLUSH BID [facility] Last Admin: 01/26/18 09:29 Dose: Not Given Sodium Chloride (Ns Flush) 2 ml IV.FLUSH PRN PRN PRN Reason: FLUSH AFTER USING IV ACCESS Vitamin D (Vitamin D3) 5,000 unit PO DAILY [facility] Last Admin: 01/26/18 08:54 Dose: 5,000 unit Warfarin Sodium (Coumadin) 5 mg PO [email or web address] [facility] Last Admin: 01/23/18 17:54 Dose: 5 mg Warfarin Sodium (Coumadin) 0.5 mg PO [email or web address] [facility] Last Admin: 01/23/18 17:54 Dose: 0.5 mg Allergies Allergy/AdvReac Type Severity Reaction Status Date / Time aspirin Allergy Severe Hives Verified 01/21/18 05:29 erythromycin base Allergy Severe Hives Verified 01/21/18 05:29 levofloxacin Allergy Severe Hives Verified 01/21/18 05:29 Home Medications Medication Instructions Recorded Confirmed Type alendronate 70 mg PO QWEEK 11/17/17 01/21/18 History diltiazem HCl 360 mg PO DAILY 11/17/17 01/21/18 History albuterol sulfate 1.25 mg INHALATION Q6H PRN 01/21/18 01/21/18 History ascorbic acid (vitamin C) [Vitamin 500 mg PO DAILY 01/21/18 01/21/18 History C] cod liver oil 5 ml PO DAILY 01/21/18 01/21/18 History cyanocobalamin (vitamin B-12) 1,000 mcg SUBCUT QMONTH 01/21/18 01/21/18 History folic acid 800 mcg PO DAILY 01/21/18 01/21/18 History hydroxyurea 500 mg PO DAILY 01/21/18 01/21/18 History metolazone 2.5 mg PO 4XW 01/21/18 01/21/18 History metolazone 5 mg PO 3XW 01/21/18 01/21/18 History ncnazajofcqw-fljl-fpwvl acid 1 tab PO DAILY 01/21/18 01/21/18 History [Centrum] polyethylene glycol 3350 [Miralax] 17 g PO DAILY PRN 01/21/18 01/21/18 History warfarin [Coumadin] 5 mg PO 2XWEEK 01/21/18 01/21/18 History warfarin [Coumadin] 5.5 mg PO 5XW 01/21/18 01/21/18 History Physical Exam Vital signs: Vital Signs 01/25/18 17:48 01/25/18 20:00 01/26/18 00:00 Temperature 97.7 F 97.6 F Pulse Rate 59 L 63 Respiratory Rate 16 16 Blood Pressure 113/49 L 122/57 L Pulse Oximetry 93 L 92 L 94 L 01/26/18 04:00 01/26/18 08:00 01/26/18 09:27 Temperature 97.7 F 97.3 F L Pulse Rate 62 66 63 Respiratory Rate 17 16 22 Blood Pressure 104/51 L 112/54 L Pulse Oximetry 91 L 96 92 L 01/26/18 12:00 01/26/18 13:32 01/26/18 14:36 Temperature 97.4 F L 98 F Pulse Rate 63 58 L Respiratory Rate 16 16 24 Blood Pressure 101/52 L 120/58 L Pulse Oximetry 93 L 91 L 01/26/18 14:50 Temperature Pulse Rate Respiratory Rate 32 H Blood Pressure Pulse Oximetry 93 L Intake & Output 01/25/18 01/26/18 01/26/18 18:59 06:59 18:59 Intake Total 1051 / 1051 1480 / 1480 800 / 800 Output Total 900 / 900 Balance 1051 / 1051 580 / 580 800 / 800 Weight 94.9 kg Intake: IV 1051 / 1051 1000 / 1000 800 / 800 NS Inj 1,000 ML @ 84 mls/hr IV. 1000 / 1000 1000 / 1000 800 / 800 CONT .[id number] [facility] Rx#:[id number] Vitamin K Inj 10 MG In NS Inj 51 / 51 50 ML @ 102 mls/hr IV.SIG ONCE ONE Rx#:[id number] Oral 480 / 480 Output: Urine 900 / 900 Other: Date of Last Bowel Movement 01/21/18 01/26/18 Narrative: General: Ill-appearing elderly gentleman in respiratory distress Head: Atraumatic, dried food particles on face Neck: Chronically stiff, airway widely patent, no obstructive noises Lungs: Diffuse rhonchi involving all yanes. Unlabored respiratory pattern, tachypnea. No wheezes or crackles heard. Heart: Irregularly irregular, rate 70s-80s. Blowing murmur 3/6 left sternal border to apex. Neck veins are flat. Abdomen: Soft, nondistended, no guarding, bowel sounds are present Extremities: Chronic edema upper extremities, minimal edema ankles and feet Neuro: Pupils equal and reactive, he tracks with eyes, tongue is midline. Moves 4 limbs spontaneously. He answers simple questions but is limited by his respiratory state. - Urinary Catheter Management Straight Cath placed during this visit: yes Urethral indwelling: Yes Reason for continuing: Acute urinary retention Insertion date: 01/25/18 Insertion time: 16:22 Assessment and Plan - Problem List (1) Acute hypoxemic respiratory failure Code(s): J96.01 - Acute respiratory failure with hypoxia Status: Acute (2) Aspiration pneumonitis Code(s): J69.0 - Pneumonitis due to inhalation of food and vomit Status: Acute (3) Atrial fibrillation Code(s): I48.91 - Unspecified atrial fibrillation Status: Chronic (4) Myeloproliferative disorder Code(s): D47.1 - Chronic myeloproliferative disease Status: Chronic (5) Compression fracture of T12 vertebra Code(s): S22.080A - Wedge compression fracture of T11-T12 vertebra, initial encounter for closed fracture Status: Acute (6) Dysphagia Code(s): R13.10 - Dysphagia, unspecified Status: Acute - Assessment and Plan Plan: Plan: 1. Hold evening Lasix dose 2. Obtain sputum culture 3. Supplemental oxygen to maintain sats greater than 90%, may need BiPAP. 4. Considering post splenectomy status I will start antibiotic coverage despite clear evidence of bacterial pneumonia 5. Follow urine output closely. 6. Obtain cardiac markers. 7. Hold Coumadin today and attempt to get PEG tube tube inserted during hiatus 8. Keep patient n.p.o. 9. Repeat chest x-ray in a.m. Overall impression: This gentleman is critically ill with acute hypoxemic respiratory failure of fairly sudden onset. I suspect aspiration pneumonitis which may or may not be colonized by this point. 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 Critical care time 45 minutes aside from procedures. (3) Atrial fibrillation Qualifiers: Atrial fibrillation type: permanent Qualified Code(s): I48.2 - Chronic atrial fibrillation
[2018-01-26] MEDS ORDERED: Sod Chloride 0.9% Inj 1,000 ML IV.CONT SCH (18:29)
--- NOTE | 2018-01-26 23:08 | US ---
EXAM DATE: 01/26/2018 11:05 PM EST AGE/SEX: 82 years / Male INDICATIONS: Left arm swelling. CLINICAL DATA: This is the patient's initial encounter. Patient reports that signs and symptoms have been present for 1 day and indicates a pain score of 1/10. MEDICAL/SURGICAL HISTORY: Asthma. Hypercholesterolemia. Hypothyroidism. Afib. Pacemaker. HTN . Splenectomy. Pacemaker placement. COMPARISON: No prior exams available for comparison. FINDINGS: The vessels are compressible and augmentation response is documented. No filling defects a re seen. The flow is phasic with respiration. Other: None. CONCLUSION: No venous thrombosis. Electronically signed by: Kelvin Trejo MD Board Certified Radiologist 01/26/2018 11:06 PM EST
--- NOTE | 2018-01-27 04:01 | XR ---
EXAM DATE: 01/27/2018 3:37 AM EST AGE/SEX: 82 years / Male INDICATIONS: Respiratory disease. CLINICAL DATA: This is the patient's subsequent encounter. Patient reports that signs and symptoms h ave been present for 4 - 6 days and indicates a pain score of Nonresponsive. MEDICAL/SURGICAL HISTORY: . Cardiovascular disease. Pacemaker. COMPARISON: [facility], CHEST 1V SINGLE AP, 01/25/2018. . FINDINGS: The heart size is enlarged. There is a bilead pacemaker in place on the left subclavian approach. The re is diffuse increased interstitial markings and alveolar density. There is silhouetting the hemidia phragms being more prominent on the left. CONCLUSION: Diffuse consolidation likely related to edema. Increased density at the bases with silhouetting the hemidiaphragms which could suggest some superimp osed effusion especially on the left. Electronically signed by: Kelvin Trejo MD Board Certified Radiologist 01/27/2018 3:59 AM EST
[2018-01-27] MEDS: Levothyroxine 100 MCG Tablet PO SCH (05:11)
[2018-01-27 06:45] LABS: Hematocrit 30.3 % (39.0-51.0); Hemoglobin 10.1 gm/dL (13.0-17.0); Mean Corpuscular HGB Conc 33.1 % (32.0-36.0); Mean Corpuscular Hemoglobin 36.1 pg (27.0-34.0); Mean Corpuscular Volume 108.9 fL (80.0-100.0); Mean Platelet Volume 8.4 fL (7.0-11.0); Platelet Count 679 th/mm3 (150-450); Red Blood Count 2.79 mil/mm3 (4.50-5.90); Red Cell Distribution Width 17.6 % (11.6-17.2); White Blood Count 14.5 th/mm3 (4.0-11.0)
--- NOTE | 2018-01-27 07:22 | P.PNCC ---
Subjective Subjective Remarks/Hospital Course: This 82-year-old gentleman has been undergoing evaluation for chronic lower back pain related to a mild compression fracture in the lumbar region. He arrived to the hospital with acute kidney injury and has responded well to gentle hydration. Noteworthy is a radiographic exam with bilateral dense infiltrate typical of fluid overload or pneumonia. His response to Lasix earlier today was not what I would have expected and his neck veins on arrival are flat. Fluid balance over the past several days is not problematic on quick review. There is a mild leukocytosis but the patient is afebrile. In short, he is clearly in respiratory distress with accelerated respiratory rate and increased effort, but I am not convinced this is simple fluid overload. Microaspiration was noted by speech pathology for which the gentleman was prepared for PEG tube placement but delayed because of a coagulopathy associated with Coumadin use for permanent atrial fibrillation. I have discussed the case in detail with Dr. Tyler Barlow from the hospitalist service and appreciate immensely his input. 01/27: Chest x-ray dramatically worse today with dense bilateral infiltrates involving all 5 lobes. His breathing is mildly labored. He may yet require intubation and mechanical ventilation. Objective Vital Signs / I&O: Vital Signs 01/26/18 08:00 01/26/18 09:27 01/26/18 12:00 Temperature 97.3 F L 97.4 F L Pulse Rate 66 63 63 Respiratory Rate 16 22 16 Blood Pressure 112/54 L 101/52 L Pulse Oximetry 96 92 L 93 L 01/26/18 13:32 01/26/18 14:36 01/26/18 14:50 Temperature 98 F Pulse Rate 58 L Respiratory Rate 16 24 32 H Blood Pressure 120/58 L Pulse Oximetry 91 L 93 L 01/26/18 19:00 01/26/18 19:04 01/26/18 19:34 Temperature Pulse Rate 55 L 57 L 56 L Respiratory Rate 24 24 29 H Blood Pressure 110/53 L 104/52 L Pulse Oximetry 94 L 95 94 L 01/26/18 20:00 01/26/18 20:04 01/26/18 20:06 Temperature Pulse Rate 56 L 57 L Respiratory Rate 24 24 Blood Pressure 104/52 L 92/47 L Pulse Oximetry 96 96 95 01/26/18 20:34 01/26/18 21:00 01/26/18 21:04 Temperature 98.2 F Pulse Rate 58 L 58 L 58 L Respiratory Rate 20 Blood Pressure 100/51 L 106/51 L Pulse Oximetry 95 94 L 95 01/26/18 21:34 01/26/18 22:00 01/26/18 23:00 Temperature Pulse Rate 58 L 61 61 Respiratory Rate 20 20 Blood Pressure 114/51 L 133/97 H 138/103 H Pulse Oximetry 94 L 94 L 94 L 01/26/18 23:22 01/27/18 00:00 01/27/18 01:00 Temperature Pulse Rate 58 L 62 60 Respiratory Rate 28 H 18 16 Blood Pressure 106/51 L 111/53 L Pulse Oximetry 96 96 01/27/18 02:00 01/27/18 03:00 01/27/18 04:00 Temperature Pulse Rate 61 58 L 58 L Respiratory Rate 16 16 16 Blood Pressure 108/51 L 116/56 L 108/51 L Pulse Oximetry 95 94 L 94 L Intake & Output 01/26/18 01/27/18 01/27/18 18:59 06:59 18:59 Intake Total 800 / 800 200 / 200 Output Total 1000 / 1000 Balance -200 / -200 200 / 200 Intake: IV 800 / 800 200 / 200 NS Inj 1,000 ML @ 84 mls/hr IV. 800 / 800 CONT .[id number] [facility] Rx#:[id number] Maxipime Inj 2,000 MG In NS Inj 200 / 200 100 ML @ 200 mls/hr IV.SIG Q12H [facility] Rx#:[id number] Oral 0 / 0 Output: Urine Amount (Catheter) 1000 / 1000 Indwelling Urethral Catheter 1000 / 1000 Other: Date of Last Bowel Movement 01/26/18 01/26/18 Result Diagrams: 01/27/18 05:17 01/26/18 09:48 Objective Remarks: Narrative: General: Chronically ill-appearing elderly gentleman Head: Atraumatic, normal Neck: Chronically stiff, airway widely patent, no obstructive noises Lungs: Few scattered rhonchi, mildly labored respiratory pattern, tachypnea. No wheezes or crackles heard. Heart: Irregularly irregular, rate 70s-80s. Blowing murmur 2/6 left sternal border to apex, RSB as well. No JVD. Abdomen: Soft, nondistended, no guarding, bowel sounds are present. No tenderness. Extremities: Chronic edema upper extremities, minimal edema ankles and feet Neuro: Pupils equal and reactive, he tracks with eyes. Moves 4 limbs spontaneously. He answers simple questions. Assessment and Plan - Problem List (1) Acute hypoxemic respiratory failure Code(s): J96.01 - Acute respiratory failure with hypoxia Status: Acute (2) Aspiration pneumonitis Code(s): J69.0 - Pneumonitis due to inhalation of food and vomit Status: Acute (3) Atrial fibrillation Code(s): I48.91 - Unspecified atrial fibrillation Status: Chronic (4) Myeloproliferative disorder Code(s): D47.1 - Chronic myeloproliferative disease Status: Chronic (5) Compression fracture of T12 vertebra Code(s): S22.080A - Wedge compression fracture of T11-T12 vertebra, initial encounter for closed fracture Status: Acute (6) Dysphagia Code(s): R13.10 - Dysphagia, unspecified Status: Acute - Assessment and Plan Plan: Plan: 1. Continue gentle hydration 2. Obtain sputum culture 3. Supplemental oxygen to maintain sats greater than 90%, may need BiPAP. 4. Considering post splenectomy status I will start antibiotic coverage. 5. Follow urine output closely. 6. Obtain cardiac markers. 7. Hold Coumadin today and attempt to get PEG tube tube inserted during hiatus 8. Keep patient n.p.o. 9. Repeat chest x-ray in a.m. Tuesday. 10. Consider repeat echo of heart. Overall impression: This gentleman is critically ill with acute hypoxemic respiratory failure of fairly sudden onset. I suspect aspiration pneumonitis which may or may not be colonized by this point. 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 His response to gentle hydration is a worsening radiographic picture. Critical care time 38 minutes aside from procedures. (3) Atrial fibrillation Qualifiers: Atrial fibrillation type: permanent Qualified Code(s): I48.2 - Chronic atrial fibrillation
[2018-01-27 07:50] LABS: Eosinophils 4 % (0-4); Lymphocytes 11 % (9-44); Monocytes 29 % (0-8)
[2018-01-27 07:51] LABS: Howell-Jolly Bodies Present
[2018-01-27 07:52] LABS: Acanthocytes 1+; Pappenheimer Bodies Present
[2018-01-27] MEDS: Budesonide-Formoterol 160/4.5 MCG 6 GM Inhaler INH SCH ×2 (09:00→21:08)
[2018-01-27] MEDS: Calcitonin Salmon Nasal 200 UNITS/Actuation - (3.7 ML) NASAL SCH (09:00)
[2018-01-27] MEDS: Allopurinol 100 MG Tablet PO SCH (09:24)
[2018-01-27] MEDS: Hydroxyurea 500 MG Capsule PO SCH (09:25)
[2018-01-27] MEDS: Docusate Sodium 100 MG Capsule PO SCH ×3 (09:25→18:17)
[2018-01-27] MEDS: Ramipril 2.5 MG Capsule PO SCH (09:25)
[2018-01-27] MEDS: Potassium Chloride 25 MEQ Effervescent Tablet PO SCH ×3 (09:25→18:18)
[2018-01-27] MEDS: Senna/Docusate Sodium 8.6/50 MG Tablet PO SCH ×2 (09:26→21:07)
[2018-01-27] MEDS: Ascorbic Acid 500 MG Tablet PO SCH (09:26)
[2018-01-27 10:42] LABS: Calcium 8.5 mg/dL (8.5-10.1); Carbon Dioxide 24.9 meq/L (21.0-32.0); Potassium 4.3 meq/L (3.5-5.1)
--- NOTE | 2018-01-27 13:58 | P.PNWCN ---
Wound Care Nurse Consult Description: Received wound management consult from Doctor Cantrell for pressure ulcer on coccyx and BLE management Communicated with: LEONEL JAIN and Doctor Cantrell Recommendation: 1.Please cleanse buttock area with Remedy barrier wipes and pat dry. Apply Calazime skin protectant paste to buttock, and gluteal cleft area BID and leave open to air. 2. Cleanse open wounds on BLE with wound cleanser or normal saline and pat dry. Cover wound on L anterior thigh and L heel with optifoam gentle border 4x4 change every 3 days or as needed if saturated or dislodged. 3. Apply xeroform gauze to partial thickness wounds on R white and cover with dry 4x4 gauze secured with rolled gauze and tape. Change dressing every other day or as needed if saturated of dislodged. 4. Please apply heel raiser boots to patients feet. 5. Turn patient every 2 hours or PRN for comfort and offloading of ricco prominences, and limit use of layers under patient. Do not use thick cotton pads and use ultra sorb pad under patient for incontinence management. Wound/Pressure Injury - Wound Left Heel Wound Staging: Stage II Wound Assessment: Ongoing Wound Type: Pressure Injury Is This a Chronic Wound: No Requested from Provider a Wound Care Consult: Yes (Patient was seen today by wound care inpatient ) Length (cm): 0.5 (~0.5cm) Width (cm): 2 (~2cm) Depth (cm): 0.1 (~<0.1cm) Wound Bed Appearance: [place] Wound Bed Appearance: 100% pink tissue Surrounding Tissue Appearance: Blanched/Dull, [place] Surrounding Tissue Temperature: Cool Drainage Description: Serous Drainage Amount: Scant Drainage Odor: No Odor Dressing Status: Open to Air Cleansing Solution: Saline Wound Margin Description: well defined and open with irregular shape Right White proximal Wound Assessment: Ongoing Wound Type: Traumatic Wound Is This a Chronic Wound: No Requested from Provider a Wound Care Consult: Yes (Patient was seen by inpatient wound care today) Length (cm): 1.5 (~1.5cm) Width (cm): 0.6 (~0.6cm) Depth (cm): 0.1 (~<0.1) Wound Bed Appearance: Red Wound Bed Appearance: 100% red non granulation tissue Surrounding Tissue Appearance: [place], Shiny Surrounding Tissue Temperature: Cool Drainage Description: Sanguinous Drainage Amount: Scant Drainage Odor: No Odor Dressing Status: Changed Cleansing Solution: Saline Primary Dressing: Xeroform Cover Dressing: gauze pad and rolled gauze Tape Type: Paper Wound Dressing Change Date: 01/27/18 Wound Margin Description: Well defined and open Right distal White Wound Assessment: Ongoing Wound Type: Traumatic Wound Is This a Chronic Wound: No Requested from Provider a Wound Care Consult: Yes (Patient was seen by inpatient wound care today) Length (cm): 1 (~1cm) Width (cm): 0.5 (~0.5cm) Depth (cm): 0.1 (~<0.1cm) Wound Bed Appearance: Red Wound Bed Appearance: 100% red non-granulation tissue Surrounding Tissue Appearance: [place] Surrounding Tissue Temperature: Cool Drainage Description: Sanguinous Drainage Amount: Scant Drainage Odor: No Odor Dressing Status: Changed Cleansing Solution: Saline Primary Dressing: Xeroform Cover Dressing: gauze pads, rolled gauze Tape Type: Paper Wound Dressing Change Date: 01/27/18 Wound Margin Description: Well defined and open Left anterior Thigh Wound Type: Traumatic Wound Is This a Chronic Wound: No Requested from Provider a Wound Care Consult: Yes Length (cm): 1.5 Width (cm): 1.5 Depth (cm): 0.1 (~<0.1) Wound Bed Appearance: Red Wound Bed Appearance: 100% red hypergranulated tissue Surrounding Tissue Appearance: [place] Surrounding Tissue Temperature: Cool Drainage Description: Serosanguinous Drainage Amount: Minimal Drainage Odor: No Odor Dressing Status: Changed Cleansing Solution: Saline Primary Dressing: Xeroform Cover Dressing: Versatel one Wound Dressing Change Date: 01/27/18 Wound Margin Description: Wound margins are closed due to hypergranulated tissue - Additional Information Patient seen on [address] [place] [address] for wound on coccyx and BLE management. Patient was turned with the total assistance of remote mortgage underwriterIzabella [facility] toward the R side. Buttock area presents with erythema that is blanchable with skin that is slightly denuded and peeling. Patient was cleansed with bath wipe and Calazime skin protectant paste was applied to bilateral buttock area and gluteal cleft. There are no pressure injuries visualized on the buttock , gluteal cleft, sacral and coccyx areas. Patient was positioned off bottom toward the R side with pillows in place for support. Attention was then turned toward the BLE. Patient is noted with hypergranulated wound on L thigh that is partially covered with loose scab. Wound was cleansed with normal saline and patted dry Scab came off to reveal wound with 100% red hypergranulated tissue. Wound was covered with xeroform gauze and then secured with Versatel one. Patient needs Optifoam gentle border 4x4 for this wound, but dressing was not available. Removed rolled gauze and telfa dressings to bilateral lower legs to reveal intact skin on L lower leg and Two shallow partial thickness wounds on R white. These wounds were cleansed with normal saline and then Xeroform gauze was applied and secured with 1 gauze pad, rolled gauze and tape. There was a telfa dressing noted on L heel that was removed reveal stage II pressure injury on the L heel. Pressure injury presents with 100% pink tissue. Wound has scant serous drainage. Wound was left open to air for now. RN to apply Optifoam gentle 4x4 dressing to L heel and L anterior thigh. when dressings become available. Full wound measurements, descriptions and wound care recommendations are noted above.
[2018-01-27] MEDS: dilTIAZem CD 180 MG Capsule PO SCH (15:14)
[2018-01-28] MEDS: Levothyroxine 100 MCG Tablet PO SCH (05:28)
[2018-01-28 05:48] LABS: Baso # (Auto) 0.1 th/mm3 (0.0-0.2); Baso % (Auto) 1.1 % (0.0-2.0); Eos # (Auto) 0.6 th/mm3 (0.0-0.4); Eos % (Auto) 4.4 % (0.0-4.0); Hematocrit 30.6 % (39.0-51.0); Hemoglobin 10.2 gm/dL (13.0-17.0); Lymph # (Auto) 2.7 th/mm3 (1.0-4.8); Lymph % (Auto) 20.5 % (9.0-44.0); Mean Corpuscular HGB Conc 33.5 % (32.0-36.0); Mean Corpuscular Hemoglobin 35.6 pg (27.0-34.0); Mean Corpuscular Volume 106.4 fL (80.0-100.0); Mean Platelet Volume 8.4 fL (7.0-11.0); Mono # (Auto) 2.8 th/mm3 (0.0-0.9); Mono % (Auto) 21.1 % (0.0-8.0); Neut # (Auto) 7.1 th/mm3 (1.8-7.7); Neut % (Auto) 52.9 % (16.0-70.0); Platelet Count 690 th/mm3 (150-450); Red Blood Count 2.87 mil/mm3 (4.50-5.90); Red Cell Distribution Width 17.8 % (11.6-17.2); White Blood Count 13.4 th/mm3 (4.0-11.0)
[2018-01-28 06:08] LABS: Calcium 8.2 mg/dL (8.5-10.1); Carbon Dioxide 25.4 meq/L (21.0-32.0); Potassium 4.1 meq/L (3.5-5.1)
[2018-01-28 07:23] LABS: Acanthocytes 1+; Eosinophils 3 % (0-4); Lymphocytes 16 % (9-44); Monocytes 8 % (0-8); Platelet Morphology Normal (Normal); Tallied Nucleated RBC 5 (0-0)
[2018-01-28 07:24] LABS: Burr Cells 1+
[2018-01-28 07:25] LABS: Howell-Jolly Bodies Present; Pappenheimer Bodies Present
[2018-01-28] MEDS: Docusate Sodium 100 MG Capsule PO SCH ×4 (09:00→17:02)
[2018-01-28] MEDS: Budesonide-Formoterol 160/4.5 MCG 6 GM Inhaler INH SCH ×2 (09:00→20:23)
[2018-01-28] MEDS: Calcitonin Salmon Nasal 200 UNITS/Actuation - (3.7 ML) NASAL SCH (09:00)
[2018-01-28] MEDS: Potassium Chloride 25 MEQ Effervescent Tablet PO SCH ×3 (09:00→17:02)
[2018-01-28] MEDS: Senna/Docusate Sodium 8.6/50 MG Tablet PO SCH ×2 (09:00→20:22)
[2018-01-28] MEDS: dilTIAZem CD 180 MG Capsule PO SCH (13:00)
--- NOTE | 2018-01-28 16:34 | XR ---
EXAM DATE: 01/28/2018 4:31 PM EST AGE/SEX: 82 years / Male INDICATIONS: Dobhoff placement. CLINICAL DATA: This is the patient's subsequent encounter. Patient reports that signs and symptoms h ave been present for 4 - 6 days and indicates a pain score of 0/10. MEDICAL/SURGICAL HISTORY: Cardiovascular disease. Pacemaker. COMPARISON: [facility], CHEST 1V SINGLE AP, 01/27/2018. . FINDINGS: Dobbhoff tube is present with tip in the region of the antrum of the stomach. Left lung base opacity is present may be due to a combination of consolidation and or pleural effusio n. Pulmonary edema is also suspected. CONCLUSION: Dobbhoff tube tip in the region of the antrum of the stomach. Electronically signed by: Kushal Huynh MD Board Certified Radiologist 01/28/2018 4:32 PM EST
[2018-01-28] MEDS: Ascorbic Acid 500 MG Tablet PO SCH (16:43)
[2018-01-28] MEDS: Allopurinol 100 MG Tablet PO SCH (16:43)
[2018-01-28] MEDS: Hydroxyurea 500 MG Capsule PO SCH (16:44)
[2018-01-28] MEDS: Ramipril 2.5 MG Capsule PO SCH (16:44)
--- NOTE | 2018-01-28 16:54 | P.PNCC ---
Subjective Subjective Remarks/Hospital Course: This 82-year-old gentleman has been undergoing evaluation for chronic lower back pain related to a mild compression fracture in the lumbar region. He arrived to the hospital with acute kidney injury and has responded well to gentle hydration. Noteworthy is a radiographic exam with bilateral dense infiltrate typical of fluid overload or pneumonia. His response to Lasix earlier today was not what I would have expected and his neck veins on arrival are flat. Fluid balance over the past several days is not problematic on quick review. There is a mild leukocytosis but the patient is afebrile. In short, he is clearly in respiratory distress with accelerated respiratory rate and increased effort, but I am not convinced this is simple fluid overload. Microaspiration was noted by speech pathology for which the gentleman was prepared for PEG tube placement but delayed because of a coagulopathy associated with Coumadin use for permanent atrial fibrillation. I have discussed the case in detail with Dr. Tyler Barlow from the hospitalist service and appreciate immensely his input. 01/27: Chest x-ray dramatically worse today with dense bilateral infiltrates involving all 5 lobes. His breathing is mildly labored. He may yet require intubation and mechanical ventilation. 01/28: Unable to swallow without aspiration. Dobbhoff tube placed for nutrition. Hypernatremia in the context of improving BUN is surprising. Objective Vital Signs / I&O: Vital Signs 01/27/18 17:00 01/27/18 17:04 01/27/18 19:00 Temperature Pulse Rate 63 65 67 Respiratory Rate 25 H 23 18 Blood Pressure 113/57 L Pulse Oximetry 93 L 93 L 91 L 01/27/18 19:04 01/27/18 19:34 01/27/18 20:00 Temperature 98.1 F Pulse Rate 68 70 70 Respiratory Rate 18 20 24 Blood Pressure 125/62 126/58 L 125/58 L Pulse Oximetry 90 L 93 L 93 L 01/27/18 20:04 01/27/18 20:34 01/27/18 21:00 Temperature Pulse Rate 75 71 78 Respiratory Rate 20 20 20 Blood Pressure 125/58 L 140/67 Pulse Oximetry 90 L 93 L 94 L 01/27/18 21:04 01/27/18 21:27 01/27/18 21:34 Temperature Pulse Rate 72 75 Respiratory Rate 26 H 20 Blood Pressure 116/56 L 118/85 Pulse Oximetry 95 95 95 01/27/18 22:00 01/27/18 22:04 01/27/18 22:34 Temperature Pulse Rate 78 76 71 Respiratory Rate 20 20 25 H Blood Pressure 125/61 114/60 Pulse Oximetry 97 99 97 01/27/18 23:00 01/27/18 23:04 01/27/18 23:34 Temperature Pulse Rate 65 72 60 Respiratory Rate 26 H 24 31 H Blood Pressure 116/53 L 120/56 L Pulse Oximetry 98 98 98 01/28/18 00:00 01/28/18 00:04 01/28/18 00:34 Temperature 98.9 F Pulse Rate 60 61 58 L Respiratory Rate 34 H 35 H 23 Blood Pressure 123/57 L 123/57 L 104/59 L Pulse Oximetry 97 98 98 01/28/18 01:00 01/28/18 01:04 01/28/18 01:34 Temperature Pulse Rate 64 72 75 Respiratory Rate 20 22 24 Blood Pressure 111/56 L 112/55 L Pulse Oximetry 98 98 98 01/28/18 02:00 01/28/18 02:04 01/28/18 02:34 Temperature Pulse Rate 81 67 66 Respiratory Rate 22 24 25 H Blood Pressure 120/82 122/60 Pulse Oximetry 85 L 65 L 96 01/28/18 03:00 01/28/18 03:04 01/28/18 03:34 Temperature Pulse Rate 59 L 81 67 Respiratory Rate 25 H 22 28 H Blood Pressure 126/60 112/57 L Pulse Oximetry 98 97 97 01/28/18 04:00 01/28/18 04:04 01/28/18 04:34 Temperature 98.0 F Pulse Rate 69 69 67 Respiratory Rate 23 43 H Blood Pressure 141/65 H 141/65 H 140/65 Pulse Oximetry 98 97 99 01/28/18 05:00 01/28/18 05:04 01/28/18 07:00 Temperature Pulse Rate 74 69 72 Respiratory Rate 41 H 36 H 26 H Blood Pressure 137/59 L 135/57 L Pulse Oximetry 94 L 93 L 97 01/28/18 08:00 01/28/18 08:05 01/28/18 09:00 Temperature 97.7 F Pulse Rate 74 69 Respiratory Rate 26 H 21 Blood Pressure 124/82 122/59 L Pulse Oximetry 98 96 97 01/28/18 10:00 01/28/18 11:00 01/28/18 12:34 Temperature 97.7 F Pulse Rate 79 65 72 Respiratory Rate 19 19 21 Blood Pressure 145/72 H 119/57 L 120/56 L Pulse Oximetry 95 99 96 01/28/18 13:00 01/28/18 14:00 01/28/18 15:00 Temperature Pulse Rate 75 77 79 Respiratory Rate 27 H 18 19 Blood Pressure 122/59 L 121/64 115/55 L Pulse Oximetry 88 L 91 L 92 L Intake & Output 01/27/18 01/28/18 01/28/18 18:59 06:59 18:59 Intake Total 1200 / 1200 Output Total 850 / 850 800 / 800 Balance -850 / -850 400 / 400 Weight 91 kg Intake: IV 1200 / 1200 LR 1000 mL Inj 1,000 ML @ 84 1000 / 1000 mls/hr IV.CONT .[id number] [facility] Rx# :[id number] Maxipime Inj 2,000 MG In NS Inj 200 / 200 100 ML @ 200 mls/hr IV.SIG Q12H [facility] Rx#:[id number] Output: Urine Amount (Catheter) 850 / 850 800 / 800 Indwelling Urethral Catheter 850 / 850 800 / 800 Other: Date of Last Bowel Movement 01/26/18 01/26/18 Result Diagrams: 01/28/18 05:00 01/28/18 05:00 Objective Remarks: Narrative: General: Chronically ill-appearing elderly gentleman Head: Atraumatic, normal Neck: Chronically stiff, airway widely patent, no obstructive noises, some transmitted gurgling Lungs: Scattered rhonchi, mildly labored respiratory pattern, tachypnea. No wheezes or crackles heard. Heart: Irregularly irregular, rate 70s-80s. Blowing murmur 3/6 left sternal border to apex, RSB as well. No JVD. Abdomen: Soft, nondistended, no guarding, bowel sounds are present. No tenderness. Extremities: Chronic dependent edema upper extremities, minimal edema ankles and feet Neuro: Pupils equal and reactive, he tracks with eyes. Moves 4 limbs spontaneously. He answers simple questions. Intermittently quite lethargic. Assessment and Plan - Problem List (1) Acute hypoxemic respiratory failure Code(s): J96.01 - Acute respiratory failure with hypoxia Status: Acute (2) Aspiration pneumonitis Code(s): J69.0 - Pneumonitis due to inhalation of food and vomit Status: Acute (3) Atrial fibrillation Code(s): I48.91 - Unspecified atrial fibrillation Status: Chronic (4) Myeloproliferative disorder Code(s): D47.1 - Chronic myeloproliferative disease Status: Chronic (5) Compression fracture of T12 vertebra Code(s): S22.080A - Wedge compression fracture of T11-T12 vertebra, initial encounter for closed fracture Status: Acute (6) Dysphagia Code(s): R13.10 - Dysphagia, unspecified Status: Acute - Assessment and Plan Plan: Plan: 1. Convert to dextrose and water gentle hydration 2. Obtain sputum culture 3. Supplemental oxygen to maintain sats greater than 90% 4. 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 5. Follow urine output closely. 6. Cardiac markers largely benign 7. Continue Coumadin today and hold to get PEG tube tube inserted 8. Keep patient n.p.o. 9. Repeat chest x-ray in a.m. Tuesday. 10. Consider repeat echo of heart. Overall impression: This gentleman is critically ill with acute hypoxemic respiratory failure of fairly sudden onset. I suspect aspiration pneumonitis which may or may not be colonized by this point. 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 His response to gentle hydration is a worsening radiographic picture. He persists with hypernatremia despite improving BUN for unclear reasons. Critical care time 40 minutes aside from procedures. (3) Atrial fibrillation Qualifiers: Atrial fibrillation type: permanent Qualified Code(s): I48.2 - Chronic atrial fibrillation
[2018-01-28] MEDS: KCL 20 mEq/Dextrose 5% Inj 1,000 ML IV.CONT SCH (16:56)
[2018-01-28] MEDS: dilTIAZem 60 MG Tablet PO SCH ×2 (17:03→20:22)
--- NOTE | 2018-01-29 04:30 | XR ---
EXAM DATE: 01/29/2018 4:14 AM EST AGE/SEX: 82 years / Male INDICATIONS: Hypoxemia. CLINICAL DATA: This is the patient's subsequent encounter. Patient reports that signs and symptoms h ave been present for 1 week and indicates a pain score of Nonresponsive. MEDICAL/SURGICAL HISTORY: Asthma. Hypercholesterolemia. Hypothyroidism. A-fib. Pacemaker. Splenectomy. COMPARISON: [facility] [place], CHEST 1V SINGLE AP, 01/27/2018. . FINDINGS: There is a pacing device seen in the left chest. There is a feeding tube extending off the inferior a spect of the image. The cardiac silhouette appears enlarged. There is silhouetting of the left latera l cardiac margin. This increased density at the bases bilaterally being worse on the left. There is s ilhouetting the left hemidiaphragm. There is mild increased focal alveolar density at the right base. There continues be diffuse increased interstitial markings which appears to be improving. CONCLUSION: Improving edema. Suspected left effusion. Bibasilar areas of atelectasis or consolidation being worse on the left. Cardiomegaly. Electronically signed by: Kelvin Trejo MD Board Certified Radiologist 01/29/2018 4:28 AM EST
[2018-01-29] MEDS: Levothyroxine 100 MCG Tablet PO SCH (05:41)
[2018-01-29] MEDS: KCL 20 mEq/Dextrose 5% Inj 1,000 ML IV.CONT SCH (05:43)
[2018-01-29 06:03] LABS: Baso # (Auto) 0.1 th/mm3 (0.0-0.2); Baso % (Auto) 0.8 % (0.0-2.0); Eos # (Auto) 0.5 th/mm3 (0.0-0.4); Eos % (Auto) 3.7 % (0.0-4.0); Hematocrit 28.8 % (39.0-51.0); Hemoglobin 9.7 gm/dL (13.0-17.0); Lymph # (Auto) 2.4 th/mm3 (1.0-4.8); Mean Corpuscular HGB Conc 33.6 % (32.0-36.0); Mean Corpuscular Hemoglobin 36.2 pg (27.0-34.0); Mean Corpuscular Volume 107.7 fL (80.0-100.0); Mean Platelet Volume 8.5 fL (7.0-11.0); Mono # (Auto) 2.9 th/mm3 (0.0-0.9); Mono % (Auto) 22.6 % (0.0-8.0); Neut # (Auto) 6.8 th/mm3 (1.8-7.7); Neut % (Auto) 53.9 % (16.0-70.0); Platelet Count 642 th/mm3 (150-450); Red Blood Count 2.67 mil/mm3 (4.50-5.90); Red Cell Distribution Width 17.3 % (11.6-17.2); White Blood Count 12.7 th/mm3 (4.0-11.0)
[2018-01-29 06:14] LABS: Calcium 8.4 mg/dL (8.5-10.1); Carbon Dioxide 27.7 meq/L (21.0-32.0); Potassium 4.5 meq/L (3.5-5.1)
[2018-01-29 07:23] LABS: Eosinophils 4 % (0-4); Lymphocytes 18 % (9-44); Monocytes 14 % (0-8); Myelocytes 2 % (0-0); Tallied Nucleated RBC 3 (0-0)
[2018-01-29 07:24] LABS: Acanthocytes 1+; Basophilic Stippling Moderate; Howell-Jolly Bodies Present
[2018-01-29] MEDS: dilTIAZem 60 MG Tablet PO SCH ×4 (09:59→21:33)
[2018-01-29] MEDS: Ascorbic Acid 500 MG Tablet PO SCH (09:59)
[2018-01-29] MEDS: Ramipril 2.5 MG Capsule PO SCH (09:59)
[2018-01-29] MEDS: Potassium Chloride 25 MEQ Effervescent Tablet PO SCH ×3 (09:59→17:56)
[2018-01-29] MEDS: Senna/Docusate Sodium 8.6/50 MG Tablet PO SCH ×2 (09:59→21:33)
[2018-01-29] MEDS: Hydroxyurea 500 MG Capsule PO SCH (09:59)
[2018-01-29] MEDS: Budesonide-Formoterol 160/4.5 MCG 6 GM Inhaler INH SCH ×2 (10:00→22:38)
[2018-01-29] MEDS: Calcitonin Salmon Nasal 200 UNITS/Actuation - (3.7 ML) NASAL SCH (10:00)
[2018-01-29] MEDS: Allopurinol 100 MG Tablet PO SCH (10:00)
[2018-01-29] MEDS: Docusate Sodium 100 MG Capsule PO SCH ×3 (10:00→17:56)
--- NOTE | 2018-01-29 13:12 | P.PNCC ---
Subjective Subjective Remarks/Hospital Course: This 82-year-old gentleman has been undergoing evaluation for chronic lower back pain related to a mild compression fracture in the lumbar region. He arrived to the hospital with acute kidney injury and has responded well to gentle hydration. Noteworthy is a radiographic exam with bilateral dense infiltrate typical of fluid overload or pneumonia. His response to Lasix earlier today was not what I would have expected and his neck veins on arrival are flat. Fluid balance over the past several days is not problematic on quick review. There is a mild leukocytosis but the patient is afebrile. In short, he is clearly in respiratory distress with accelerated respiratory rate and increased effort, but I am not convinced this is simple fluid overload. Microaspiration was noted by speech pathology for which the gentleman was prepared for PEG tube placement but delayed because of a coagulopathy associated with Coumadin use for permanent atrial fibrillation. I have discussed the case in detail with Dr. Tyler Barlow from the hospitalist service and appreciate immensely his input. 01/27: Chest x-ray dramatically worse today with dense bilateral infiltrates involving all 5 lobes. His breathing is mildly labored. He may yet require intubation and mechanical ventilation. 01/28: Unable to swallow without aspiration. Dobbhoff tube placed for nutrition. Hypernatremia in the context of improving BUN is surprising. 01/29: Over the past few days he is acted like diastolic heart failure, balancing between renal failure and pulmonary edema. Last month his ejection fraction was estimated at 45-50% with some ventricular dilation. Chest x-ray starting to clear. He is a chronic aspirator and I am not sure whether this represents pneumonia or pulmonary edema. He has remained afebrile for several days now while on antibiotic therapy. He required hydration initially due to hypotension but is now to a point where diuresis is tolerable. We have not been able to get sputum from him as he is extremely uncooperative. By any measure he has 2 major refractory problems, heart failure and chronic aspiration. If we can find some family will get palliative care service involved. Objective Vital Signs / I&O: Vital Signs 01/28/18 14:00 01/28/18 15:00 01/28/18 16:00 Temperature 98.1 F Pulse Rate 77 79 71 Respiratory Rate 18 19 44 H Blood Pressure 121/64 115/55 L 105/53 L Pulse Oximetry 91 L 92 L 92 L 01/28/18 17:00 01/28/18 17:34 01/28/18 18:00 Temperature Pulse Rate 73 60 60 Respiratory Rate 41 H 41 H 44 H Blood Pressure 103/52 L 100/49 L Pulse Oximetry 91 L 90 L 90 L 01/28/18 18:04 01/28/18 18:34 01/28/18 19:00 Temperature Pulse Rate 61 60 62 Respiratory Rate 42 H 43 H 24 Blood Pressure 108/53 L 96/49 L Pulse Oximetry 89 L 91 L 91 L 01/28/18 19:04 01/28/18 19:34 01/28/18 20:00 Temperature 97.7 F Pulse Rate 62 66 66 Respiratory Rate 24 24 25 H Blood Pressure 97/51 L 103/55 L Pulse Oximetry 91 L 91 L 92 L 01/28/18 20:04 01/28/18 20:34 01/28/18 21:00 Temperature Pulse Rate 67 65 63 Respiratory Rate 24 24 32 H Blood Pressure 106/53 L 112/54 L Pulse Oximetry 91 L 91 L 90 L 01/28/18 21:04 01/28/18 21:34 01/28/18 22:00 Temperature Pulse Rate 62 60 58 L Respiratory Rate 33 H 39 H 26 H Blood Pressure 102/50 L 102/55 L Pulse Oximetry 90 L 91 L 92 L 01/28/18 22:04 01/28/18 22:41 01/28/18 23:00 Temperature Pulse Rate 58 L 65 63 Respiratory Rate 24 24 22 Blood Pressure 131/61 111/68 Pulse Oximetry 91 L 92 L 92 L 01/28/18 23:04 01/28/18 23:34 01/29/18 00:00 Temperature 98.0 F Pulse Rate 69 69 68 Respiratory Rate 22 20 23 Blood Pressure 108/53 L 108/51 L Pulse Oximetry 92 L 92 L 92 L 01/29/18 00:04 01/29/18 00:34 01/29/18 01:00 Temperature Pulse Rate 67 66 63 Respiratory Rate 24 25 H 25 H Blood Pressure 116/56 L 108/56 L Pulse Oximetry 92 L 92 L 92 L 01/29/18 01:04 01/29/18 01:34 01/29/18 02:00 Temperature Pulse Rate 62 59 L 66 Respiratory Rate 24 24 28 H Blood Pressure 104/49 L 107/55 L Pulse Oximetry 92 L 92 L 92 L 12/16/18 02:04 01/29/18 02:34 01/29/18 03:00 Temperature Pulse Rate 62 62 63 Respiratory Rate 24 24 24 Blood Pressure 108/53 L 107/51 L Pulse Oximetry 92 L 92 L 92 L 01/29/18 03:04 01/29/18 03:34 01/29/18 04:00 Temperature 98.0 F Pulse Rate 62 59 L 66 Respiratory Rate 24 24 24 Blood Pressure 102/50 L 109/58 L Pulse Oximetry 92 L 92 L 94 L 01/29/18 04:04 01/29/18 07:00 01/29/18 08:00 Temperature 98.3 F Pulse Rate 61 62 63 Respiratory Rate 20 24 22 Blood Pressure 101/52 L 112/57 L 103/53 L Pulse Oximetry 94 L 93 L 94 L 01/29/18 09:00 01/29/18 10:00 01/29/18 11:00 Temperature Pulse Rate 64 63 57 L Respiratory Rate 20 25 H 21 Blood Pressure 97/50 L 110/53 L 100/53 L Pulse Oximetry 93 L 93 L 92 L 01/29/18 11:34 01/29/18 12:00 Temperature 98.4 F Pulse Rate 57 L Respiratory Rate 20 Blood Pressure 96/54 L 96/54 L Pulse Oximetry 92 L Intake & Output 01/28/18 01/29/18 01/29/18 18:59 06:59 18:59 Intake Total 1420 / 1420 1472 / 1472 Output Total 700 / 700 450 / 450 Balance 720 / 720 1022 / 1022 Weight 94 kg Intake: IV 1300 / 1300 1100 / 1100 D5W + KCL 20 mEq Inj 1,000 ML @ 1000 / 1000 75 mls/hr IV.CONT .[id number] [facility] Rx#:[id number] LR 1000 mL Inj 1,000 ML @ 84 1200 / 1200 mls/hr IV.CONT .[id number] [facility] Rx# :[id number] Maxipime Inj 2,000 MG In NS Inj 100 / 100 100 / 100 100 ML @ 200 mls/hr IV.SIG Q12H [facility] Rx#:[id number] Tube Feeding 312 / 312 Tube Irrigant 60 / 60 Other 120 / 120 Output: Urine Amount (Catheter) 700 / 700 450 / 450 Indwelling Urethral Catheter 700 / 700 450 / 450 Other: Date of Last Bowel Movement 01/28/18 01/28/18 01/28/18 # Incontinent Bowel Movements 1 Result Diagrams: 01/29/18 04:48 01/29/18 04:48 Objective Remarks: Narrative: General: Chronically ill-appearing, elderly gentleman Head: Atraumatic, normal Neck: Chronically stiff, airway widely patent, no obstructive noises Lungs: Scattered rhonchi persist, nonlabored respiratory pattern Heart: Irregularly irregular, rate 70s-80s. Blowing murmur 2/6 left sternal border to apex, RSB as well. No JVD. Abdomen: Soft, nondistended, no guarding, bowel sounds are present. No tenderness to palpation. Extremities: Chronic dependent edema upper extremities, minimal edema ankles and feet Neuro: EULOGIO. Moves 4 limbs spontaneously. Intermittently agitated or lethargic. Assessment and Plan - Problem List (1) Acute hypoxemic respiratory failure Code(s): J96.01 - Acute respiratory failure with hypoxia Status: Acute (2) Aspiration pneumonitis Code(s): J69.0 - Pneumonitis due to inhalation of food and vomit Status: Acute (3) Atrial fibrillation Code(s): I48.91 - Unspecified atrial fibrillation Status: Chronic (4) Myeloproliferative disorder Code(s): D47.1 - Chronic myeloproliferative disease Status: Chronic (5) Compression fracture of T12 vertebra Code(s): S22.080A - Wedge compression fracture of T11-T12 vertebra, initial encounter for closed fracture Status: Acute (6) Dysphagia Code(s): R13.10 - Dysphagia, unspecified Status: Acute - Assessment and Plan Plan: Plan: 1. Hold gentle hydration 2. Obtain sputum culture if possible 3. Supplemental oxygen to maintain sats greater than 90% 4. 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 5. Follow urine output closely. 6. Cardiac markers largely benign 7. Continue Coumadin today and hold to get PEG tube tube inserted 8. Keep patient n.p.o. 9. Repeat chest x-ray in a.m. 10. Consider repeat echo of heart. 11. Consider palliative care consult Overall impression: This gentleman came to the ICU critically ill with acute hypoxemic respiratory failure of fairly sudden onset. I suspected aspiration pneumonitis. 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 His response to gentle hydration has been a worsening radiographic picture. He clearly fails every swallow attempt. If we are to persist with aggressive care with this gentleman he really needs a trach and PEG. (3) Atrial fibrillation Qualifiers: Atrial fibrillation type: permanent Qualified Code(s): I48.2 - Chronic atrial fibrillation
--- NOTE | 2018-01-29 14:26 | P.DIET ---
Nutritional Evaluation Type of nutrition evaluation: initial Nutrition consult regarding: Tube Feeding Subjective Barriers to Nutrition: Swallowing problem Objective - Diagnosis Compression fracture, intractable pain - Objective % IBW: 116 Body Weight Used for Calculations: IBW (78.2 kg) Energy Needs - Lower Range (kCal/kg): 28 Energy Needs - Upper Range (kCal/kg): 33 Lower Limit kCal/kg (kCals): 2,190 Upper Limit kCal/kg (kCals): 2,581 Lower Limit Protein Factor (Grams per Kg): 1.2 Upper Limit Protein Factor (Grams per Kg): 1.5 Lower Protein Needs (Protein): 94 Upper Protein Needs (Protein): 117 Dietitian Reviewed in Medical Record: Curent medications, Intake & Output, Labs , Medical history, Tube feeding, Wound/DTI Diet Order: NPO Speech Therapy Recommendations: Yes Wound Care Note: 01/27/18 WOCN note: Left heel wound Pressure Injury stage II; Right white proximal-traumatic wound; Right distal white-traumatic wound; Left anterior thigh -traumatic wound Objective Comments: PMH includes: AFib, Asthma, hypercholesterolemia, hypothyroidism, pacemaker Labs include: Na 154, BUN 34, Creatinine 1.06, estGFR 67, Glucose 155 LBM 01/28/18 Assessment Assessment: Pt is at nutritional risk r/t increased needs for wound healing, dysphagia w/ risk for silent aspiration and need for TF'ing. For TF'ing w/Jevity 1.5, Rec a goal rate @ 70ml/hr x 22-hr(TF'ing to be held for Synthroid)to offer 2310 kcal, 98g protein and 1170.4ml free water. Free water flushes per MD. Labs reviewed- monitor renal labs. Recommendations: 1. For TF'ing w/Jevity 1.5, Rec a goal rate @ 70ml/hr x 22-hr(TF'ing to be held for Synthroid) 2. Free water flushes per MD Dietitian to Monitor: Lab values, Electrolytes, Renal labs, Glucose level, Intake & Output, Tube feeding tolerance, Weight change, Wound/skin status, Medical course Comments: monitor for PEG tube placement
--- NOTE | 2018-01-30 03:55 | XR ---
EXAM DATE: 01/30/2018 3:44 AM EST AGE/SEX: 82 years / Male INDICATIONS: Infiltrates, hypoxemia. CLINICAL DATA: This is the patient's subsequent encounter. Patient reports that signs and symptoms h ave been present for 1 week and indicates a pain score of 6/10. MEDICAL/SURGICAL HISTORY: Hypertension. Asthma. A-Fib. T12 compression fracture. Pacemaker. Splenectomy. COMPARISON: [facility] [place] S[place], 01/29/2018. . FINDINGS: There is loss of delineation of the central bronchopulmonary markings, bilateral lower lung consolida tion, left greater than right and hazy opacities in the central and upper lungs bilaterally. The left lower lobe consolidation is stable. The nonconsolidative airspace opacities in the right lower lung have increased when compared to yesterday's exam. Gastric tube traverses the [id number]. Cardiac p acer leads in place. CONCLUSION: Increasing airspace opacities in the right lower lung, persistent nonconsolidative airspace opacities in the central and upper lungs, and persistent left lower lobe consolidation. Electronically signed by: Grant Vaughan MD Board Certified Radiologist 01/30/2018 3:53 AM EST
[2018-01-30 05:24] LABS: Baso # (Auto) 0.1 th/mm3 (0.0-0.2); Baso % (Auto) 0.7 % (0.0-2.0); Eos # (Auto) 0.5 th/mm3 (0.0-0.4); Eos % (Auto) 2.9 % (0.0-4.0); Hematocrit 28.4 % (39.0-51.0); Hemoglobin 9.9 gm/dL (13.0-17.0); Lymph # (Auto) 3.7 th/mm3 (1.0-4.8); Lymph % (Auto) 22.7 % (9.0-44.0); Mean Corpuscular HGB Conc 34.9 % (32.0-36.0); Mean Corpuscular Hemoglobin 36.9 pg (27.0-34.0); Mean Corpuscular Volume 105.9 fL (80.0-100.0); Mean Platelet Volume 8.5 fL (7.0-11.0); Mono # (Auto) 3.7 th/mm3 (0.0-0.9); Neut # (Auto) 8.2 th/mm3 (1.8-7.7); Neut % (Auto) 50.7 % (16.0-70.0); Platelet Count 601 th/mm3 (150-450); Red Blood Count 2.68 mil/mm3 (4.50-5.90); Red Cell Distribution Width 17.4 % (11.6-17.2); White Blood Count 16.2 th/mm3 (4.0-11.0)
[2018-01-30 05:52] LABS: Calcium 8.5 mg/dL (8.5-10.1); Carbon Dioxide 28.5 meq/L (21.0-32.0); Potassium 4.9 meq/L (3.5-5.1)
[2018-01-30] MEDS: Levothyroxine 100 MCG Tablet PO SCH (06:03)
[2018-01-30 08:45] LABS: Acanthocytes Occ; Basophilic Stippling Heavy; Eosinophils 2 % (0-4); Howell-Jolly Bodies Present; Lymphocytes 19 % (9-44); Monocytes 18 % (0-8); Tallied Nucleated RBC 3 (0-0)
[2018-01-30 08:46] LABS: Spherocytes 1+
[2018-01-30] MEDS: Allopurinol 100 MG Tablet PO SCH (11:45)
[2018-01-30] MEDS: Senna/Docusate Sodium 8.6/50 MG Tablet PO SCH ×2 (11:45→20:45)
[2018-01-30] MEDS: dilTIAZem 60 MG Tablet PO SCH ×4 (11:45→20:45)
[2018-01-30] MEDS: Ascorbic Acid 500 MG Tablet PO SCH (11:45)
[2018-01-30] MEDS: Ramipril 2.5 MG Capsule PO SCH (11:45)
[2018-01-30] MEDS: Docusate Sodium 100 MG Capsule PO SCH ×3 (11:45→18:45)
[2018-01-30] MEDS: Potassium Chloride 25 MEQ Effervescent Tablet PO SCH ×3 (11:45→18:45)
[2018-01-30] MEDS: Hydroxyurea 500 MG Capsule PO SCH (11:45)
[2018-01-30] MEDS: Calcitonin Salmon Nasal 200 UNITS/Actuation - (3.7 ML) NASAL SCH (11:48)
[2018-01-30] MEDS: Budesonide-Formoterol 160/4.5 MCG 6 GM Inhaler INH SCH ×2 (11:48→20:46)
--- NOTE | 2018-01-30 16:46 | P.PNCC ---
Subjective Subjective Remarks/Hospital Course: This 82-year-old gentleman has been undergoing evaluation for chronic lower back pain related to a mild compression fracture in the lumbar region. He arrived to the hospital with acute kidney injury and has responded well to gentle hydration. Noteworthy is a radiographic exam with bilateral dense infiltrate typical of fluid overload or pneumonia. His response to Lasix earlier today was not what I would have expected and his neck veins on arrival are flat. Fluid balance over the past several days is not problematic on quick review. There is a mild leukocytosis but the patient is afebrile. In short, he is clearly in respiratory distress with accelerated respiratory rate and increased effort, but I am not convinced this is simple fluid overload. Microaspiration was noted by speech pathology for which the gentleman was prepared for PEG tube placement but delayed because of a coagulopathy associated with Coumadin use for permanent atrial fibrillation. I have discussed the case in detail with Dr. Tyler Barlow from the hospitalist service and appreciate immensely his input. 01/27: Chest x-ray dramatically worse today with dense bilateral infiltrates involving all 5 lobes. His breathing is mildly labored. He may yet require intubation and mechanical ventilation. 01/28: Unable to swallow without aspiration. Dobbhoff tube placed for nutrition. Hypernatremia in the context of improving BUN is surprising. 01/29: Over the past few days he is acted like diastolic heart failure, balancing between renal failure and pulmonary edema. Last month his ejection fraction was estimated at 45-50% with some ventricular dilation. Chest x-ray starting to clear. He is a chronic aspirator and I am not sure whether this represents pneumonia or pulmonary edema. He has remained afebrile for several days now while on antibiotic therapy. He required hydration initially due to hypotension but is now to a point where diuresis is tolerable. We have not been able to get sputum from him as he is extremely uncooperative. By any measure he has 2 major refractory problems, heart failure and chronic aspiration. If we can find some family will get palliative care service involved. 01/30: Remains on facemask O2. Family decided to make him DNR status Objective Vital Signs / I&O: Vital Signs 01/29/18 17:00 01/29/18 17:34 01/29/18 18:00 Temperature Pulse Rate 63 68 Respiratory Rate 26 H 25 H Blood Pressure 112/54 L 135/59 L 110/54 L Pulse Oximetry 93 L 92 L 01/29/18 19:00 01/29/18 19:04 01/29/18 19:34 Temperature Pulse Rate 66 66 66 Respiratory Rate 59 H 45 H 39 H Blood Pressure 123/51 L 114/58 L Pulse Oximetry 89 L 89 L 90 L 01/29/18 20:00 01/29/18 20:04 01/29/18 20:34 Temperature 99.6 F Pulse Rate 68 68 70 Respiratory Rate 34 H 39 H 37 H Blood Pressure 115/55 L 129/62 Pulse Oximetry 90 L 90 L 90 L 01/29/18 21:00 01/29/18 21:04 01/29/18 21:34 Temperature Pulse Rate 72 71 72 Respiratory Rate 36 H 33 H 34 H Blood Pressure 113/53 L 120/56 L Pulse Oximetry 90 L 90 L 90 L 01/29/18 22:00 01/29/18 22:04 01/29/18 22:34 Temperature Pulse Rate 69 68 67 Respiratory Rate 36 H 35 H 35 H Blood Pressure 106/57 L 109/73 Pulse Oximetry 90 L 90 L 90 L 01/29/18 23:00 01/29/18 23:04 01/29/18 23:34 Temperature Pulse Rate 70 70 71 Respiratory Rate 36 H 38 H 38 H Blood Pressure 141/60 H 112/60 Pulse Oximetry 90 L 90 L 91 L 01/30/18 00:00 01/30/18 00:04 01/30/18 00:34 Temperature 98.7 F Pulse Rate 70 71 69 Respiratory Rate 54 H 38 H 69 H Blood Pressure 116/55 L 103/51 L Pulse Oximetry 91 L 90 L 92 L 01/30/18 01:00 01/30/18 04:00 01/30/18 08:00 Temperature 98.9 F 98.0 F Pulse Rate 70 66 66 Respiratory Rate 36 H 26 H 28 H Blood Pressure 101/52 L Pulse Oximetry 91 L 91 L 92 L 01/30/18 08:04 01/30/18 08:34 01/30/18 09:00 Temperature Pulse Rate 70 70 72 Respiratory Rate 29 H 30 H 27 H Blood Pressure 110/53 L 105/71 Pulse Oximetry 91 L 92 L 91 L 01/30/18 09:04 01/30/18 09:34 01/30/18 10:00 Temperature Pulse Rate 72 75 74 Respiratory Rate 28 H 30 H 25 H Blood Pressure 114/53 L 107/52 L Pulse Oximetry 91 L 91 L 91 L 01/30/18 10:04 01/30/18 10:34 01/30/18 10:47 Temperature Pulse Rate 69 75 Respiratory Rate 29 H 29 H Blood Pressure 109/55 L 111/64 Pulse Oximetry 92 L 92 L 92 L 01/30/18 11:00 01/30/18 11:04 01/30/18 11:34 Temperature Pulse Rate 69 68 69 Respiratory Rate 29 H 28 H 30 H Blood Pressure 113/56 L 120/53 L Pulse Oximetry 91 L 92 L 91 L 01/30/18 12:00 Temperature 98.2 F Pulse Rate 76 Respiratory Rate 29 H Blood Pressure Pulse Oximetry 91 L Intake & Output 01/29/18 01/30/18 01/30/18 18:59 06:59 18:59 Intake Total 1224 / 1224 720 / 720 100 / 100 Output Total 550 / 550 400 / 400 Balance 674 / 674 320 / 320 100 / 100 Weight 92.7 kg Intake: IV 600 / 600 100 / 100 Maxipime Inj 2,000 MG In NS Inj 100 / 100 100 / 100 100 ML @ 200 mls/hr IV.SIG Q12H MARY Rx#:[id number] Tube Feeding 444 / 444 660 / 660 Tube Irrigant 180 / 180 60 / 60 Output: Urine Amount (Catheter) 550 / 550 400 / 400 Indwelling Urethral Catheter 550 / 550 400 / 400 Other: Date of Last Bowel Movement 01/28/18 01/28/18 # Bowel Movements 0 0 Result Diagrams: 01/30/18 05:04 01/30/18 05:04 Objective Remarks: Narrative: General: Chronically ill-appearing, elderly gentleman Head: Atraumatic, normal Neck: Chronically stiff, airway widely patent, no obstructive noises Lungs: Scattered rhonchi persist, nonlabored respiratory pattern Heart: Irregularly irregular, rate 70s-80s. Blowing murmur 2/6 left sternal border to apex, RSB as well. No JVD. Abdomen: Soft, nondistended, no guarding, bowel sounds are present. No tenderness to palpation. Extremities: Chronic dependent edema upper extremities, minimal edema ankles and feet Neuro: EULOGIO. Moves 4 limbs spontaneously. Intermittently agitated or lethargic. Assessment and Plan - Problem List (1) Acute hypoxemic respiratory failure Code(s): J96.01 - Acute respiratory failure with hypoxia Status: Acute (2) Aspiration pneumonitis Code(s): J69.0 - Pneumonitis due to inhalation of food and vomit Status: Acute (3) Atrial fibrillation Code(s): I48.91 - Unspecified atrial fibrillation Status: Chronic (4) Myeloproliferative disorder Code(s): D47.1 - Chronic myeloproliferative disease Status: Chronic (5) Compression fracture of T12 vertebra Code(s): S22.080A - Wedge compression fracture of T11-T12 vertebra, initial encounter for closed fracture Status: Acute (6) Dysphagia Code(s): R13.10 - Dysphagia, unspecified Status: Acute - Assessment and Plan Plan: Plan: 1. Hold gentle hydration 2. Obtain sputum culture if possible 3. Supplemental oxygen to maintain sats greater than 90% 4. 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 5. Follow urine output closely. 6. Cardiac markers largely benign 7. Continue Coumadin today and hold to get PEG tube tube inserted 8. Keep patient n.p.o. 9. Repeat chest x-ray in a.m. 10. Consider repeat echo of heart. 11. Will obtain palliative care consult Family decided to make him DNR status on 01/30-confirmed by 2 nurses Overall impression: This gentleman came to the ICU critically ill with acute hypoxemic respiratory failure of fairly sudden onset. I suspected aspiration pneumonitis. 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 His response to gentle hydration has been a worsening radiographic picture. He clearly fails every swallow attempt. If we are to persist with aggressive care with this gentleman he really needs a trach and PEG. (3) Atrial fibrillation Qualifiers: Atrial fibrillation type: permanent Qualified Code(s): I48.2 - Chronic atrial fibrillation
--- NOTE | 2018-01-30 17:53 | P.CONPAL ---
Consult Service: Palliative Care Requesting Physician: Neal Miller (Initial) Reason for Consult: a. To assist with evaluation and management of symptoms including: Pain, dysphasia b. To assist medical decision maker(s) with: better understanding of current medical conditions; weighing benefits/burdens of medical treatment options; making medical treatment decisions. Primary Care Provider: Richie Martinez MD History of Present Illness History of Present Illness: This is an 82-year-old male with a history of hypertension, hyperlipidemia and atrial fibrillation on Coumadin, who presents to the ED 01/21/18 after being discharged from a [facility] facility that day after a fall which occurred while he was transferring from his vehicle back to his house during which time he had a loss of balance and fell, striking the back of his head on the car. [facility] was called but he declined transport to the hospital at this time. He subsequently presented with complaints of lumbar pain, sharp, 10/10 with no relieving factors, exacerbated by movement. He denied any syncope, numbness sensation loss in the lower his incontinence, fever or chills. Diagnostic data on admission: * CT of the lumbar spine without contrast shows degenerative changes, grade 1 retrolisthesis of L5 on S1 grade 1 anterolisthesis of L4 and L5, severe disc space narrowing with vacuum disc phenomenon and mild endplate sclerosis at L3-4 , L4-5 and L5-S1. T12 compression fracture. * EKG shows atrial fibrillation with controlled ventricular response, PVCs, nonspecific ST and T wave abnormality. * PT evaluation on admission indicated the patient had an increased risk of falling, compromised balance and altered gait recommending skilled PT services. * Presenting labs WBC 15.6, Hgb 10.1, HCT 30.4, platelets 506, PT 18.7, INR 1.8 , sodium 139, potassium 4.5, BUN 21, creatinine 1.41, calcium 8.3, total bilirubin 1.5, AST 67, ALT 29, alkaline phosphatase 92, total protein 5.8, albumin 2.7 He was evaluated by neurosurgery who recommended a TLSO brace and pain control. No surgical intervention recommended. He was evaluated by speech therapy who noted mild pharyngeal phase dysphasia with overt signs of aspiration and recommended mechanical soft diet, nectar thick liquids continued speech therapy. He underwent modified barium swallow 01/22 showing silent aspiration of thin and nectar thick liquids without cough response. He tolerated honey consistency, pures and soft solids without penetration or aspiration. Patient continued to demonstrate micro aspiration and PEG tube placement was considered , but delayed because of a coagulopathy associated with Coumadin for his permanent atrial fibrillation. On 01/26 he developed respiratory distress and was transferred to the quality assurance analyst service for further management. Their assessment showed acute hypoxemic respiratory failure fairly sudden onset suspicious for aspiration pneumonitis which may or may not have been colonized at that point. Given his postsplenectomy status he was started on broad- spectrum antibiotic therapy. On 01/27 his chest x-ray looked much worse and antibiotic therapy was continued. He required placement of a Dobbhoff for nutrition as he was aspirating all thicknesses. Last ejection fraction was estimated at 45-50% with some dilation and looks suspicious for diastolic heart failure. At this evaluation he remains on facemask O2 and his [facility], Lobito Tobias , has decided to make him a DO NOT RESUSCITATE status. Past medical history Atrial fibrillation chronic for over 20 years Asthma Hyperlipidemia Hypothyroidism History of pacemaker implantation COPD Pneumonia Abdominal aortic aneurysm Anemia Cerebrovascular disease Peripheral artery disease Benign prostatic hypertrophy Essential a thrombocytopenia Myeloproliferative disorder Hemolytic anemia Hereditary spherocytosis Cardiovascular disease Cataracts Gout Osteoarthritis Peripheral neuropathy CVA 2011 Surgical history Pacemaker implantation Splenectomy Left inguinal hernia repair Vasectomy Cervical fusion TURP Colonoscopy Multiple biopsies Sigmoidoscopy Social history Lifetime non-smoker, nonalcohol/substance abuser. Family history Parents are . . Function/Cognitive Trajectory: Patient has failed rehabilitation, sustaining a fall immediately upon returning home from a [facility] facility. He has been hospitalized since November 16 in and discharged to rehab. He returned home 01/21 and fell getting out of the car and was [place] [facility]. . Review of Systems Patient is nonverbal and unable to provide their own ROS. A 12 part ROS taken as best as possible from medical record and available family. . Cardiovascular: Reports shortness of breath Gastrointestinal: Reports difficulty swallowing (continuous aspiration) Musculoskeletal: Reports back pain PMFSH - History History Provided By: Patient - Medical History Medical History: Medical History (Last Reviewed 01/30/18 @ 09:22 by Yolie Prasad) A-fib Asthma Hypercholesterolemia Hypothyroidism Pacemaker - Surgical History Surgical History: Surgical History (Last Reviewed 01/30/18 @ 09:22 by Yolie Prasad) History of splenectomy - Family History Family History: Family History (Last Reviewed 01/30/18 @ 09:22 by Yolie Prasad) Other No pertinent family history - Tobacco History Second Hand Smoke Exposure: Yes Smoking Status: Never smoker - Alcohol History How Often Do You Have a Drink Containing Alcohol: Never - Substance Use History Substance History: No History of Abuse - Travel History Recent Travel in the [place] Within the Last 8 Weeks: No Recent Travel Out of the Country Within the Last 8 Weeks: No - Immunization History Tetanus Immunization: Unsure Medications and Allergies Active Medications: Active Medications Acetaminophen (Tylenol) 650 mg PO Q4H PRN PRN Reason: Temp > 100.4 Hydrocodone Bitart/Acetaminophen ([place] 5/325) 1 tab PO Q4H PRN PRN Reason: PAIN 3-5 Last Admin: 01/26/18 09:26 Dose: 1 tab Al Hydroxide/Mg Hydroxide (Milk Of [place]) 30 ml PO Q12H PRN PRN Reason: Mild Constipation Last Admin: 01/26/18 08:55 Dose: 30 ml Albuterol (Duoneb Neb (Prn)) 1 ampul NEB Q6HR NEB PRN PRN Reason: SHORTNESS OF BREATH Last Admin: 01/26/18 23:22 Dose: 1 ampul Allopurinol (Zyloprim) 100 mg PO DAILY [facility] Last Admin: 01/30/18 11:45 Dose: 100 mg Ascorbic Acid (Vitamin C) 500 mg PO DAILY [facility] Last Admin: 01/30/18 11:45 Dose: 500 mg Bisacodyl (Dulcolax Supp) 10 mg RECTAL DAILY PRN PRN Reason: SEVERE CONSITIPATION Last Admin: 01/26/18 12:34 Dose: 10 mg Budesonide/Formoterol Fumarate (Symbicort 160/4.5 Mcg Inh) 2 puff INH BID [facility] Last Admin: 01/30/18 11:48 Dose: Not Given Calcitonin [place] (Calcitonin [place] Nasal) 1 sprays NASAL DAILY [facility] Last Admin: 01/30/18 11:48 Dose: Not Given Diltiazem HCl (Cardizem Cd 24hr) 360 mg PO Q24H [facility] Last Admin: 01/28/18 13:00 Dose: Not Given Diltiazem HCl (Cardizem) 60 mg PO QID [facility] Last Admin: 01/30/18 11:45 Dose: 60 mg Docusate Sodium (Colace) 100 mg PO TID [facility] Last Admin: 01/30/18 11:45 Dose: 100 mg Furosemide (Lasix Inj) 40 mg IV.PUSH DAILY [facility] Last Admin: 01/30/18 11:44 Dose: 40 mg Hydroxyurea (Hydrea) 500 mg PO DAILY [facility] Last Admin: 01/30/18 11:45 Dose: 500 mg Cefepime HCl 2,000 mg/ Sodium (Chloride) 100 mls @ 200 mls/hr IV.SIG Q12H [facility] Last Infusion: 01/30/18 07:00 Dose: Infused Potassium Chloride/Dextrose (D5w + Kcl 20 Meq Inj) 1,000 mls @ 75 mls/hr IV.CONT .[id number] [facility] Last Infusion: 01/29/18 14:30 Dose: Infused Lactulose (Lactulose Liq) 30 ml PO DAILY PRN PRN Reason: SEVERE CONSITIPATION Last Admin: 01/26/18 08:55 Dose: 30 ml Levothyroxine Sodium (Synthroid) 100 mcg PO DAILY@0600 [facility] Last Admin: 01/30/18 06:03 Dose: 100 mcg Metolazone (Zaroxolyn) [facility] Last Admin: 01/29/18 10:00 Dose: 2.5 mg Miscellaneous (Pill Splitter) 1 each OTHER UNSCH PRN PRN Reason: TABLET SPLITTIN Morphine Sulfate (Morphine Inj) 2 mg IV.PUSH Q4H PRN PRN Reason: PAIN 6-10 Last Admin: 01/25/18 16:26 Dose: 2 mg Multivitamins (Theragran) 1 tab PO DAILY [facility] Last Admin: 01/30/18 11:45 Dose: 1 tab Non-Formulary Medication (Meclizine [Meclizine]) 12.5 mg PO Q6H PRN PRN Reason: Vertigo Ondansetron HCl (Zofran Inj) 4 mg IV.PUSH Q6H PRN PRN Reason: NAUSEA OR VOMITING Last Admin: 01/27/18 21:56 Dose: 4 mg Potassium Bicarb/Potassium Chloride (K-Lyte Cl Eff) 25 meq PO TID [facility] Last Admin: 01/30/18 11:45 Dose: 25 meq Pravastatin Sodium (Pravachol) 20 mg PO HS [facility] Last Admin: 01/29/18 21:33 Dose: 20 mg Ramipril (Altace) 2.5 mg PO DAILY [facility] Last Admin: 01/30/18 11:45 Dose: 2.5 mg Senna/Docusate Sodium (Norma-Colace) 1 tab PO BID [facility] Last Admin: 01/30/18 11:45 Dose: 1 tab Sennosides (Senokot) 17.2 mg PO Q12H PRN PRN Reason: Moderate Constipation Last Admin: 01/26/18 08:55 Dose: 17.2 mg Sodium Chloride (Ns Flush) 2 ml IV.FLUSH BID [facility] Last Admin: 01/30/18 11:45 Dose: 2 ml Sodium Chloride (Ns Flush) 2 ml IV.FLUSH PRN PRN PRN Reason: FLUSH AFTER USING IV ACCESS Sterile Water (Free Water) 200 ml NG/OG Q4H [facility] Stop: 01/31/18 11:01 Vitamin D (Vitamin D3) 5,000 unit PO DAILY [facility] Last Admin: 01/30/18 11:45 Dose: 5,000 unit Warfarin Sodium (Coumadin) 5 mg PO SuMoWeThSa@1600 [facility] Last Admin: 01/28/18 16:43 Dose: 5 mg Warfarin Sodium (Coumadin) 0.5 mg PO SuMoWeThSa@1600 [facility] Last Admin: 01/28/18 16:52 Dose: 0.5 mg Allergies Allergy/AdvReac Type Severity Reaction Status Date / Time aspirin Allergy Severe Hives Verified 01/21/18 05:29 erythromycin base Allergy Severe Hives Verified 01/21/18 05:29 levofloxacin Allergy Severe Hives Verified 01/21/18 05:29 Home Medications Medication Instructions Recorded Confirmed Type alendronate 70 mg PO QWEEK 11/17/17 01/21/18 History diltiazem HCl 360 mg PO DAILY 11/17/17 01/21/18 History albuterol sulfate 1.25 mg INHALATION Q6H PRN 01/21/18 01/21/18 History ascorbic acid (vitamin C) [Vitamin 500 mg PO DAILY 01/21/18 01/21/18 History C] cod liver oil 5 ml PO DAILY 01/21/18 01/21/18 History cyanocobalamin (vitamin B-12) 1,000 mcg SUBCUT QMONTH 01/21/18 01/21/18 History folic acid 800 mcg PO DAILY 01/21/18 01/21/18 History hydroxyurea 500 mg PO DAILY 01/21/18 01/21/18 History metolazone 2.5 mg PO 4XW 01/21/18 01/21/18 History metolazone 5 mg PO 3XW 01/21/18 01/21/18 History jwendikypjir-iimd-[id number] acid 1 tab PO DAILY 01/21/18 01/21/18 History [Centrum] polyethylene glycol 3350 [Miralax] 17 g PO DAILY PRN 01/21/18 01/21/18 History warfarin [Coumadin] 5 mg PO 2XWEEK 01/21/18 01/21/18 History warfarin [Coumadin] 5.5 mg PO 5XW 01/21/18 01/21/18 History Advance Directives Living Will: No Healthcare Surrogate: Yes Health Care Surrogate Name and Number: Lobito Tobias - (H), (C) Power of Coroner/Medical Examiner: No Power of Coroner/Medical Examiner Relationship to Patient: Friend(s) Physical Exam Vital Signs: Vital Signs - 24 hr 01/29/18 17:34 01/29/18 18:00 01/29/18 19:00 Temperature Pulse Rate 68 66 Respiratory Rate 25 H 59 H Blood Pressure 135/59 L 110/54 L Pulse Oximetry 92 L 89 L 01/29/18 19:04 01/29/18 19:34 01/29/18 20:00 Temperature Pulse Rate 66 66 68 Respiratory Rate 45 H 39 H 34 H Blood Pressure 123/51 L 114/58 L Pulse Oximetry 89 L 90 L 90 L 01/29/18 20:04 01/29/18 20:34 01/29/18 21:00 Temperature 99.6 F Pulse Rate 68 70 72 Respiratory Rate 39 H 37 H 36 H Blood Pressure 115/55 L 129/62 Pulse Oximetry 90 L 90 L 90 L 01/29/18 21:04 01/29/18 21:34 01/29/18 22:00 Temperature Pulse Rate 71 72 69 Respiratory Rate 33 H 34 H 36 H Blood Pressure 113/53 L 120/56 L Pulse Oximetry 90 L 90 L 90 L 01/29/18 22:04 01/29/18 22:34 01/29/18 23:00 Temperature Pulse Rate 68 67 70 Respiratory Rate 35 H 35 H 36 H Blood Pressure 106/57 L 109/73 Pulse Oximetry 90 L 90 L 90 L 01/29/18 23:04 01/29/18 23:34 01/30/18 00:00 Temperature Pulse Rate 70 71 70 Respiratory Rate 38 H 38 H 54 H Blood Pressure 141/60 H 112/60 Pulse Oximetry 90 L 91 L 91 L 01/30/18 00:04 01/30/18 00:34 01/30/18 01:00 Temperature 98.7 F Pulse Rate 71 69 70 Respiratory Rate 38 H 69 H 36 H Blood Pressure 116/55 L 103/51 L Pulse Oximetry 90 L 92 L 91 L 01/30/18 04:00 01/30/18 08:00 01/30/18 08:04 Temperature 98.9 F 98.0 F Pulse Rate 66 66 70 Respiratory Rate 26 H 28 H 29 H Blood Pressure 101/52 L 110/53 L Pulse Oximetry 91 L 92 L 91 L 01/30/18 08:34 01/30/18 09:00 01/30/18 09:04 Temperature Pulse Rate 70 72 72 Respiratory Rate 30 H 27 H 28 H Blood Pressure 105/71 114/53 L Pulse Oximetry 92 L 91 L 91 L 01/30/18 09:34 01/30/18 10:00 01/30/18 10:04 Temperature Pulse Rate 75 74 69 Respiratory Rate 30 H 25 H 29 H Blood Pressure 107/52 L 109/55 L Pulse Oximetry 91 L 91 L 92 L 01/30/18 10:34 01/30/18 10:47 01/30/18 11:00 Temperature Pulse Rate 75 69 Respiratory Rate 29 H 29 H Blood Pressure 111/64 Pulse Oximetry 92 L 92 L 91 L 01/30/18 11:04 01/30/18 11:34 01/30/18 12:00 Temperature 98.2 F Pulse Rate 68 69 76 Respiratory Rate 28 H 30 H 29 H Blood Pressure 113/56 L 120/53 L Pulse Oximetry 92 L 91 L 91 L I&O: Intake & Output 01/28/18 01/29/18 01/30/18 01/31/18 06:59 06:59 06:59 06:59 Intake Total 1200 / 1200 2892 / 2892 1944 / 1944 100 / 100 Output Total 1650 / 1650 1150 / 1150 950 / 950 Balance -450 / -450 1742 / 1742 994 / 994 100 / 100 Weight 200 lb 9.93 oz 207 lb 3.752 oz 204 lb 5.896 oz Physical Exam: CONSTITUTIONAL/GENERAL: This is an adequately nourished patient, on 50% PRB mask , in no apparent distress. TUBES/LINES/DRAINS: PIV SKIN: No jaundice or rashes, with crusted, healing wound on ankle. Ecchymoses on upper extremities. No wounds seen anteriorly. Skin temperature appropriate. Not diaphoretic. HEAD: Atraumatic. Normocephalic. EYES: Pupils equal and round and reactive. Extraocular motions intact. No scleral icterus. No injection or drainage. Fundi not examined. ENT: Unable to assess hearing. Nose without bleeding or purulent drainage. Throat without visible erythema, exudates, masses, or lesions. NECK: Trachea midline. Supple, nontender. No palpable thyroid enlargement or nodularity. CARDIOVASCULAR: Irregular rhythm, controlled rate without murmurs, gallops, or rubs. No JVD. Peripheral pulses diminished. RESPIRATORY/CHEST: Breath sounds coarse, rhonchorous, mildly tachypneic. GASTROINTESTINAL: Abdomen soft, non-tender, nondistended. No hepato-splenomegaly , or palpable masses. No guarding. Bowel sounds present. GENITOURINARY: Without palpable bladder distension. Roman catheter in place. MUSCULOSKELETAL: Extremities without clubbing, cyanosis 1+ edema. No joint tenderness or effusion noted. No calf tenderness. No mottling or clubbing. LYMPHATICS: No palpable cervical or supraclavicular adenopathy. NEUROLOGICAL:Lethargic, unable to articulate words at this evaluation. Generalized weakness. PSYCHIATRIC: Lethargic, opens eyes to voice, not agitated. . Diagnostic Tests Laboratory: Laboratory Results - last 72 hr 01/28/18 01/28/18 01/29/18 05:00 05:00 04:48 WBC 13.4 H 12.7 H RBC 2.87 L 2.67 L Hgb 10.2 L 9.7 L Hct 30.6 L 28.8 L MCV 106.4 H 107.7 H MCH 35.6 H 36.2 H MCHC 33.5 33.6 RDW 17.8 H 17.3 H Plt Count 690 H 642 H MPV 8.4 8.5 Prelim Diff (Auto) Slide review pending Slide review pending Neut % (Auto) 52.9 53.9 Lymph % (Auto) 20.5 19.0 [place] % (Auto) 21.1 H 22.6 H Eos % (Auto) 4.4 H 3.7 Baso % (Auto) 1.1 0.8 Neut # (Auto) 7.1 6.8 Lymph # (Auto) 2.7 2.4 [place] # (Auto) 2.8 H 2.9 H Eos # (Auto) 0.6 H 0.5 H Baso # (Auto) 0.1 0.1 WBC Differential Manual diff final Manual diff final Seg Neuts % (Manual) 68 57 Band Neuts % (Manual) 2 5 Lymphocytes % (Manual) 16 18 Monocytes % (Manual) 8 14 H Eosinophils % (Manual) 3 4 Basophils % (Manual) 3 H Myelocytes % (Man) 2 H Abs Neuts (Manual) 9.4 H 8.1 H Nucleated RBCs/100 WBC 5 H 3 H Differential Comment . . Platelet Estimate High H High H Platelet Morphology Normal Enlarged H Basophilic Stippling Moderate H Spherocytes Pappenheimer Bodies Present H Griffin-[place] Bodies Present H Present H Jamaal Cells 1+ H Acanthocytes (Spur) 1+ H 1+ H Sodium 155 H Potassium 4.1 Chloride 123 H Carbon Dioxide 25.4 Anion Gap 7 BUN 32 H Creatinine 0.92 Estimated GFR 78 L Random Glucose 80 Calcium 8.2 L B-Natriuretic Peptide 01/29/18 01/29/18 01/30/18 04:48 04:48 05:04 WBC 16.2 H RBC 2.68 L Hgb 9.9 L Hct 28.4 L MCV 105.9 H MCH 36.9 H MCHC 34.9 RDW 17.4 H Plt Count 601 H MPV 8.5 Prelim Diff (Auto) Slide review pending Neut % (Auto) 50.7 Lymph % (Auto) 22.7 [place] % (Auto) 23.0 H Eos % (Auto) 2.9 Baso % (Auto) 0.7 Neut # (Auto) 8.2 H Lymph # (Auto) 3.7 [place] # (Auto) 3.7 H Eos # (Auto) 0.5 H Baso # (Auto) 0.1 WBC Differential Manual diff final Seg Neuts % (Manual) 58 Band Neuts % (Manual) Lymphocytes % (Manual) 19 Monocytes % (Manual) 18 H Eosinophils % (Manual) 2 Basophils % (Manual) 3 H Myelocytes % (Man) Abs Neuts (Manual) 9.4 H Nucleated RBCs/100 WBC 3 H Differential Comment . Platelet Estimate High H Platelet Morphology Enlarged H Basophilic Stippling Heavy H Spherocytes 1+ H Pappenheimer Bodies [place] Bodies Present H Jamaal Cells Acanthocytes (Spur) Occ H Sodium 154 H Potassium 4.5 Chloride 122 H Carbon Dioxide 27.7 Anion Gap 4 L BUN 34 H Creatinine 1.06 Estimated GFR 67 L Random Glucose 155 H Calcium 8.4 L B-Natriuretic Peptide 354 H 01/30/18 05:04 WBC RBC Hgb Hct MCV MCH MCHC RDW Plt Count MPV Prelim Diff (Auto) Neut % (Auto) Lymph % (Auto) [place] % (Auto) Eos % (Auto) Baso % (Auto) Neut # (Auto) Lymph # (Auto) [place] # (Auto) Eos # (Auto) Baso # (Auto) WBC Differential Seg Neuts % (Manual) Band Neuts % (Manual) Lymphocytes % (Manual) Monocytes % (Manual) Eosinophils % (Manual) Basophils % (Manual) Myelocytes % (Man) Abs Neuts (Manual) Nucleated RBCs/100 WBC Differential Comment Platelet Estimate Platelet Morphology Basophilic Stippling Spherocytes Pappenheimer Bodies Griffin-Wild [place] Bodies Reading Cells Acanthocytes (Spur) Sodium 156 H* Potassium 4.9 Chloride 124 H Carbon Dioxide 28.5 Anion Gap 4 L BUN 44 H Creatinine 1.43 H Estimated GFR 47 L Random Glucose 147 H Calcium 8.5 B-Natriuretic Peptide Result Diagrams: 01/30/18 05:04 01/30/18 05:04 Imaging: ITS Impressions Lumbar Spine CT 01/21/18 05:25 CONCLUSION: 1. Degenerative changes are noted as above. 2. T12 compression fracture. Chest CT 01/23/18 00:00 CONCLUSION: 1. There is some mild poorly prominent adenopathy in the right hilum and precarinal region. 2. Bibasilar consolidation and nodular patchy nodular densities in the right middle lobe, along the major fissure and right middle lobe. PET/CT scan may be warranted on a nonemergent basis. 3. Small pleural effusions and bibasilar consolidation. Head MRI 01/23/18 00:00 CONCLUSION: 1. No acute hemorrhage, mass or evidence of acute infarction. 2. Atrophy and chronic small vessel ischemic changes. 3. Extensive pansinusitis. Videofluoroscopic Swallow 01/23/18 00:00 CONCLUSION: Silent aspiration with thin and puree liquid consistencies. Venous Doppler Study 01/26/18 00:00 CONCLUSION: No venous thrombosis. Abdomen X-Ray 01/28/18 00:00 CONCLUSION: Dobbhoff tube tip in the region of the antrum of the stomach. Chest X-Ray 01/30/18 04:00 CONCLUSION: Increasing airspace opacities in the right lower lung, persistent nonconsolidative airspace opacities in the central and upper lungs, and persistent left lower lobe consolidation. Patient/Family Conference Present at Family Conference: Spoke with his HCS, Lobito Tobias, via telephone. Reviewed clinical course, interventions attempted, patient's current clinical status, past medical, social , family, psychosocial history. Reviewed palliative care purpose and focus as well as the below listed items. Provided palliative care contact information. All questions answered to the best of my ability. Issues Discussed: * Palliative care role, purpose, approach * Additional medical, psychosocial, and spiritual history * Patients general health, functional status, and cognitive changes in the months leading up to the current hospitalization * Patient/family understanding of the current medical problems * Patient/family understanding of prognosis * Patients goals of care as best understood from advance directives and/or conversations and/or values * Current medical treatment options and benefits/burdens of those options * Likely scenarios comparing ongoing aggressive care with a transition to comfort measures only * Questions answered to the best of my ability * Palliative care contact information provided Assessment and Plan Pertinent Non-Medical Issues: Psychosocial: Born in [place], [place]. 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 He was once but . He has one daughter, Livier Angela. Spiritual:[place] available. Legal: Living will and HCS on chart. Ethical issues impacting care: None noted. . Important Contacts: HCS: Lobito Tobias (Home) [phone], (Cell) [phone] Daughter: Livier Angela . Prognosis: His prognosis is guarded. He has been aspirating consistently and now has aspiration pneumonitis. His respiratory status is fragile and he has multiple comorbidities. He has been hospitalized in both [facility] since November including a stretcher of rehab. He fell the day he was released from rehab, fracturing T12. His roommate, who is his healthcare surrogate, has made him a DO NOT RESUSCITATE at this time but reserves the right to reverse that should he regain lucidity. In either case, if he survives this hospitalization, he would likely remain in a [facility] facility for the remainder of his life. We will continue to hold conversations with his healthcare surrogate regarding his prognosis as clinical course progresses. He is at elevated risk for continued complications, decline and rehospitalizations. . Code Status: No Code DNR Plan: PLAN: Legal decision maker: Patient is not capacitated for decision-making. He has executed a healthcare surrogate and living will naming his roommate Lobito Tobias as his healthcare surrogate and father Jonnathan Maradiaga as his alternate surrogate. Goals: Comfort at this time. CODE STATUS: DO NOT RESUSCITATE SYMPTOMS: * Dyspnea: He is currently on a 50% partial rebreather mask saturating in the low 90s. It is believed he has aspiration pneumonitis. He is receiving Symbicort, cefepime and albuterol. Lumite Injector managing. HCS declining intubation. * Pain: He has a T12 fracture status post fall as well as multiple degenerative processes. He is receiving morphine 2 mg every 4 hours as needed and [place] 5/ 325 mg every 4 hours as needed. He has taken no pills today. He is painful when moved but otherwise appears to rest comfortably. * Dysphasia: He is chronically aspirating and now has aspiration pneumonitis. Barium swallow shows silent aspiration. He currently has a Dobbhoff tube inserted for tube feeding and the HCS might consider PEG tube but will require more time to assimilate all the information and make that decision. Further decisions based on patient's clinical course. PEG tube would not eliminate his risk of aspiration. Palliative care will continue to follow the patient during hospital course as condition evolves, to assist patient/decision-maker with understanding of their medical conditions, weighing benefits/burdens of treatment options, for clarification of goals of treatment. Additionally will assist with any symptoms of palliative concern. . Appreciation Thank you for the opportunity to participate in the care of Abelino Angela. Attestation Attestation: To help prompt me to consider important information that might be impacting today's encounter and assessment, information from prior notes written by myself or my colleagues may have been "brought forward" into today's note. My signature on this note, however, is an attestation that I personally performed the exam, history, and/or decision-making noted today, and, unless otherwise indicated, the interactions with patient, family, and staff as well as the review of records all occurred today. I also attest that the listed assessment and stated plan reflect my best clinical judgment today based on the combination of historical information, prior notes, and today's exam/ interactions. When time spent is documented, it refers only to time spent today by the signer, or if indicated, combined time spent today by collaborating physician/nurse practitioner. .
--- NOTE | 2018-01-30 19:43 | P.CONIM ---
History of Present Illness Consult date: 01/30/18 Reason for Consult: chronic aspiration and chf Primary Care Provider: Richie Martinez MD Chief Complaint: ams History of Present Illness: This 82-year-old gentleman admitted with acute compression fracture T11-12, who developed acute hypoxic respiratory failure transferred to the ICU, treated for diastolic heart failure and recurrent aspiration pneumonitis. Patient failed swallow evaluations and recommendation was for PEG tube placement for nutrition however this was delayed due to coagulopathy as patient was on Coumadin for history of atrial fibrillation. Patient has had persistent edema, and worsening mental status with worsening hypernatremia and volume overload. Patient's healthcare surrogate has made him a DNR and palliative care consult is in progress. We are consulted for resumption of care of patient from ICU. Patient seen and examined, chart reviewed in detail. Review of Systems ROS Unobtainable: unobtainable due to mental condition PENDING SALE TO [facility] Medical History Medical History A-fib (Acute) Asthma (Acute) Hypercholesterolemia (Acute) Hypothyroidism (Acute) Pacemaker (Acute) Social History Social History Substance History: No History of Abuse Second Hand Smoke Exposure: Yes Smoking Status: Never smoker How Often Do You Have a Drink Containing Alcohol: Never Recent Travel in [place] within the Last 8 Weeks: No Recent Out of Country Travel within the Last 8 Weeks: No Immunization History Tetanus Immunization: Unsure Medications and Allergies Allergies Allergy/AdvReac Type Severity Reaction Status Date / Time aspirin Allergy Severe Hives Verified 01/21/18 05:29 erythromycin base Allergy Severe Hives Verified 01/21/18 05:29 levofloxacin Allergy Severe Hives Verified 01/21/18 05:29 Home Medications Medication Instructions Recorded Confirmed Type alendronate 70 mg PO QWEEK 11/17/17 01/21/18 History diltiazem HCl 360 mg PO DAILY 11/17/17 01/21/18 History albuterol sulfate 1.25 mg INHALATION Q6H PRN 01/21/18 01/21/18 History ascorbic acid (vitamin C) [Vitamin 500 mg PO DAILY 01/21/18 01/21/18 History C] cod liver oil 5 ml PO DAILY 01/21/18 01/21/18 History cyanocobalamin (vitamin B-12) 1,000 mcg SUBCUT QMONTH 01/21/18 01/21/18 History folic acid 800 mcg PO DAILY 01/21/18 01/21/18 History hydroxyurea 500 mg PO DAILY 01/21/18 01/21/18 History metolazone 2.5 mg PO 4XW 01/21/18 01/21/18 History metolazone 5 mg PO 3XW 01/21/18 01/21/18 History gwxsfsgudyvo-jdrd-lidlq acid 1 tab PO DAILY 01/21/18 01/21/18 History [Centrum] polyethylene glycol 3350 [Miralax] 17 g PO DAILY PRN 01/21/18 01/21/18 History warfarin [Coumadin] 5 mg PO 2XWEEK 01/21/18 01/21/18 History warfarin [Coumadin] 5.5 mg PO 5XW 01/21/18 01/21/18 History Active Medications: Active Medications Acetaminophen (Tylenol) 650 mg PO Q4H PRN PRN Reason: Temp > 100.4 Hydrocodone Bitart/Acetaminophen ([place] 5/325) 1 tab PO Q4H PRN PRN Reason: PAIN 3-5 Last Admin: 01/26/18 09:26 Dose: 1 tab Al Hydroxide/Mg Hydroxide (Milk Of Jose Liq) 30 ml PO Q12H PRN PRN Reason: Mild Constipation Last Admin: 01/26/18 08:55 Dose: 30 ml Albuterol (Duoneb Neb (Prn)) 1 ampul NEB Q6HR NEB PRN PRN Reason: SHORTNESS OF BREATH Last Admin: 01/26/18 23:22 Dose: 1 ampul Allopurinol (Zyloprim) 100 mg PO DAILY [facility] Last Admin: 01/30/18 11:45 Dose: 100 mg Ascorbic Acid (Vitamin C) 500 mg PO DAILY [facility] Last Admin: 01/30/18 11:45 Dose: 500 mg Bisacodyl (Dulcolax Supp) 10 mg RECTAL DAILY PRN PRN Reason: SEVERE CONSITIPATION Last Admin: 01/26/18 12:34 Dose: 10 mg Budesonide/Formoterol Fumarate (Symbicort 160/4.5 Mcg Inh) 2 puff INH BID [facility] Last Admin: 01/30/18 11:48 Dose: Not Given Calcitonin [place] (Calcitonin [place] Nasal) 1 sprays NASAL DAILY [facility] Last Admin: 01/30/18 11:48 Dose: Not Given Diltiazem HCl (Cardizem Cd 24hr) 360 mg PO Q24H [facility] Last Admin: 01/28/18 13:00 Dose: Not Given Diltiazem HCl (Cardizem) 60 mg PO QID [facility] Last Admin: 01/30/18 13:30 Dose: 60 mg Docusate Sodium (Colace) 100 mg PO TID [facility] Last Admin: 01/30/18 13:30 Dose: 100 mg Furosemide (Lasix Inj) 40 mg IV.PUSH DAILY [facility] Last Admin: 01/30/18 11:44 Dose: 40 mg Hydroxyurea (Hydrea) 500 mg PO DAILY [facility] Last Admin: 01/30/18 11:45 Dose: 500 mg Cefepime HCl 2,000 mg/ Sodium (Chloride) 100 mls @ 200 mls/hr IV.SIG Q12H [facility] Last Infusion: 01/30/18 07:00 Dose: Infused Potassium Chloride/Dextrose (D5w + Kcl 20 Meq Inj) 1,000 mls @ 75 mls/hr IV.CONT .[id number] [facility] Last Infusion: 01/29/18 14:30 Dose: Infused Lactulose (Lactulose Liq) 30 ml PO DAILY PRN PRN Reason: SEVERE CONSITIPATION Last Admin: 01/26/18 08:55 Dose: 30 ml Levothyroxine Sodium (Synthroid) 100 mcg PO DAILY@0600 [facility] Last Admin: 01/30/18 06:03 Dose: 100 mcg Metolazone (Zaroxolyn) 2.5 mg PO SuTuThSa [facility] Last Admin: 01/29/18 10:00 Dose: 2.5 mg Miscellaneous (Pill Splitter) 1 each OTHER UNSCH PRN PRN Reason: TABLET SPLITTIN Morphine Sulfate (Morphine Inj) 2 mg IV.PUSH Q4H PRN PRN Reason: PAIN 6-10 Last Admin: 01/25/18 16:26 Dose: 2 mg Multivitamins (Theragran) 1 tab PO DAILY [facility] Last Admin: 01/30/18 11:45 Dose: 1 tab Non-Formulary Medication (Meclizine [Meclizine]) 12.5 mg PO Q6H PRN PRN Reason: Vertigo Ondansetron HCl (Zofran Inj) 4 mg IV.PUSH Q6H PRN PRN Reason: NAUSEA OR VOMITING Last Admin: 01/27/18 21:56 Dose: 4 mg Potassium Bicarb/Potassium Chloride (K-Lyte Cl Eff) 25 meq PO TID [facility] Last Admin: 01/30/18 13:30 Dose: 25 meq Pravastatin Sodium (Pravachol) 20 mg PO HS [facility] Last Admin: 01/29/18 21:33 Dose: 20 mg Ramipril (Altace) 2.5 mg PO DAILY [facility] Last Admin: 01/30/18 11:45 Dose: 2.5 mg Senna/Docusate Sodium (Norma-Colace) 1 tab PO BID [facility] Last Admin: 01/30/18 11:45 Dose: 1 tab Sennosides (Senokot) 17.2 mg PO Q12H PRN PRN Reason: Moderate Constipation Last Admin: 01/26/18 08:55 Dose: 17.2 mg Sodium Chloride (Ns Flush) 2 ml IV.FLUSH BID [facility] Last Admin: 01/30/18 11:45 Dose: 2 ml Sodium Chloride (Ns Flush) 2 ml IV.FLUSH PRN PRN PRN Reason: FLUSH AFTER USING IV ACCESS Sterile Water (Free Water) 200 ml NG/OG Q4H [facility] Stop: 01/31/18 11:01 Last Admin: 01/30/18 13:30 Dose: 200 ml Vitamin D (Vitamin D3) 5,000 unit PO DAILY [facility] Last Admin: 01/30/18 11:45 Dose: 5,000 unit Warfarin Sodium (Coumadin) 5 mg PO SuMoWeThSa@1600 [facility] Last Admin: 01/28/18 16:43 Dose: 5 mg Warfarin Sodium (Coumadin) 0.5 mg PO SuMoWeThSa@1600 [facility] Last Admin: 01/28/18 16:52 Dose: 0.5 mg Physical Exam Vital signs: Last Vital Signs Temp 98.2 F 01/30/18 12:00 Pulse 76 01/30/18 12:00 Resp 29 H 01/30/18 12:00 BP 120/53 L 01/30/18 11:34 Pulse Ox 91 L 01/30/18 12:00 Intake & Output 01/28/18 01/29/18 01/30/18 01/31/18 06:59 06:59 06:59 06:59 Intake Total 1200 / 1200 2892 / 2892 1944 / 1944 100 / 100 Output Total 1650 / 1650 1150 / 1150 950 / 950 Balance -450 / -450 1742 / 1742 994 / 994 100 / 100 Weight 91 kg 94 kg 92.7 kg GEN well-developed well-nourished chronically ill-appearing 82-year-old gentleman who is on a Ventimask awakes to verbal, confused, does not follow all commands, garbles some response non-intelligible, Dobbhoff tube HEENT normocephalic atraumatic, Pupils equal reactive, sclerae anicteric, extraocular motion intact, mucosa is moist. posterior pharynx not visible NECK supple no JVD trachea midline thyroid smooth not enlarged ANT CHEST WALL without mass or tenderness to palpation, pacemaker in place nontender HEART S1-S2 regular without murmur gallops or clicks, heart sounds distant, occasional ectopy LUNGS coarse breath sounds to auscultation without wheeze or rhonchi, decreased expansion, trace rales BACK exam is no CVA tenderness or mass ABDOMEN soft nondistended positive bowel sounds no guarding rebound rigidity small umbilical hernia soft reducible LYMPH NODES no cervical, axillary or inguinal adenopathy noted EXTREMITIES no clubbing cyanosis +2-3 pitting edema, peripheral pulses palpable diminished, right lower externally genuvalgus, NEUROLOGIC difficult to asses as hes not following, strength appears decrease throughout, no clonus, no rigidity, sensation appears intact, SKIN warm and dry, good turgor scattered small sores le, upper ex, no drainage Results Labs CBC & Chem 7: 01/30/18 05:04 01/30/18 05:04 Imaging Impressions Chest X-Ray 01/30/18 04:00 CONCLUSION: Increasing airspace opacities in the right lower lung, persistent nonconsolidative airspace opacities in the central and upper lungs, and persistent left lower lobe consolidation. ABG Impressions Chest X-Ray 01/30/18 04:00 CONCLUSION: Increasing airspace opacities in the right lower lung, persistent nonconsolidative airspace opacities in the central and upper lungs, and persistent left lower lobe consolidation. Assessment and Plan Plan ACUTE HYPOXIC RESPIRATORY FAILURE - cont pulm tx, possible steroids DYSPHAGIA w ASPIRATION PNA - cont cefepime, aspn precautions, possible peg pending family decision re palliative care ACUTE ON CHRONIC DIASTOLIC CHF - w anasarca and free water deficit, lasix resistent, may try bumex or oncotic diuresis w albumin but limited due to hypernatremia METABOLIC ENCEPHALOPATHY - due to elevated na? - HYPERNATREMIA - from diuresis - w persistent vol overload, cont free water per dht ROLAND - prerenal - cont free water, may need to hold lasix MDS w anemia chronic, macrocytic, w thrombocytosis - supportive CHRONIC AFIB w PPM was on coumadin reversed for coagulopathy and possible peg placement HTN - controlled HYPOTHYROIDISM - check tsh, cont synthroid CHRONIC EDEMA/ CVI w ulcerations - wound care, diuresis as tolerated ASTHMA hx - may benefit from steroids though no active bronchospasm audible, cont pulm tx, nebs HX CVA - coumadin when able SUBACUTE T12 COMPRESSION FX - admitting dx, pain control as tolerated, PT as able dvt prophylaxis - coumadin Dispo: palliative care consult, possible hospice vs rehab DNR full active tx grave prognosis thanks will follow.
[2018-01-31] MEDS: Morphine Sulfate Inj 2 MG/ML Vial IV.PUSH PRN ×3 (00:55→17:05)
[2018-01-31] MEDS: Levothyroxine 100 MCG Tablet PO SCH (05:41)
[2018-01-31 06:31] LABS: Baso # (Auto) 0.2 th/mm3 (0.0-0.2); Baso % (Auto) 0.8 % (0.0-2.0); Eos # (Auto) 0.5 th/mm3 (0.0-0.4); Eos % (Auto) 2.1 % (0.0-4.0); Hematocrit 29.9 % (39.0-51.0); Hemoglobin 9.7 gm/dL (13.0-17.0); Lymph # (Auto) 3.5 th/mm3 (1.0-4.8); Mean Corpuscular HGB Conc 32.4 % (32.0-36.0); Mean Corpuscular Hemoglobin 35.9 pg (27.0-34.0); Mean Corpuscular Volume 110.8 fL (80.0-100.0); Mean Platelet Volume 9.4 fL (7.0-11.0); Mono # (Auto) 6.2 th/mm3 (0.0-0.9); Mono % (Auto) 24.8 % (0.0-8.0); Neut # (Auto) 14.5 th/mm3 (1.8-7.7); Neut % (Auto) 58.3 % (16.0-70.0); Platelet Count 529 th/mm3 (150-450); Red Cell Distribution Width 18.5 % (11.6-17.2); White Blood Count 24.9 th/mm3 (4.0-11.0)
[2018-01-31 07:01] LABS: Calcium 8.6 mg/dL (8.5-10.1); Magnesium 2.8 mg/dL (1.5-2.5); Phosphorus 2.8 mg/dL (2.5-4.9); Potassium 5.5 meq/L (3.5-5.1)
[2018-01-31 07:46] LABS: Eosinophils 2 % (0-4); Lymphocytes 11 % (9-44); Monocytes 30 % (0-8); Tallied Nucleated RBC 1 (0-0)
[2018-01-31 07:47] LABS: Acanthocytes 1+
[2018-01-31 07:48] LABS: Howell-Jolly Bodies Present; Toxic Vacuolation Present
[2018-01-31 07:50] LABS: Pappenheimer Bodies Present
--- NOTE | 2018-01-31 08:36 | US ---
EXAM DATE: 01/31/2018 8:29 AM EST AGE/SEX: 82 years / Male INDICATIONS: Right pleural effusion. CLINICAL DATA: This is the patient's initial encounter. Patient reports that signs and symptoms have been present for 1 day and indicates a pain score of 8/10. MEDICAL/SURGICAL HISTORY: Hypercholesterolemia. Hypothyroidism. Asthma. Afib. Spine compressio n fracture. Respiratory failure. Aspiration pneumonitis. Pacemaker. Splenectomy. COMPARISON: [facility] [place], CT CHEST W CONTRAST, 01/23/2018. [facility] [place], CHEST 1V SINGLE AP, 01/30/2018. . MEASUREMENTS: Skin To Parietal Pleura:__1.5 cm Skin To Max Safe Depth:__No safe depth. cm Estimated Fluid Volume:__681 cc Fluid Composition:__simple FINDINGS: No marking was performed. A small somewhat loculated pleural effusion is present with a lung parench yma located peripherally. CONCLUSION: There is a small right pleural effusion that appears somewhat loculated. No marking was performed sin ce the lung is located peripherally without a good window for safe thoracentesis. If thoracentesis re tyshawn desired clinically, one could consider performing a chest CT with possible CT guided thoracente sis. Electronically signed by: Kelvin Choudhury MD Board Certified Radiologist 01/31/2018 8:35 AM EST
[2018-01-31] MEDS: Allopurinol 100 MG Tablet PO SCH (11:01)
[2018-01-31] MEDS: Ascorbic Acid 500 MG Tablet PO SCH (11:01)
[2018-01-31] MEDS: Budesonide-Formoterol 160/4.5 MCG 6 GM Inhaler INH SCH (11:02)
[2018-01-31] MEDS: Calcitonin Salmon Nasal 200 UNITS/Actuation - (3.7 ML) NASAL SCH (11:02)
[2018-01-31] MEDS: Potassium Chloride 25 MEQ Effervescent Tablet PO SCH ×3 (11:02→13:43)
[2018-01-31] MEDS: Senna/Docusate Sodium 8.6/50 MG Tablet PO SCH (11:02)
[2018-01-31] MEDS: dilTIAZem 60 MG Tablet PO SCH ×2 (11:02→13:41)
[2018-01-31] MEDS: Docusate Sodium 100 MG Capsule PO SCH ×2 (11:04→13:43)
[2018-01-31] MEDS: Ramipril 2.5 MG Capsule PO SCH (11:05)
[2018-01-31] MEDS: Hydroxyurea 500 MG Capsule PO SCH (11:06)
--- NOTE | 2018-01-31 11:45 | P.PNIM ---
Subjective Interval history: No significant change in sodium levels today. Patient remains confused. Patient nonverbal. Physical Exam Vital signs: Last Vital Signs Temp 98 F 01/31/18 08:00 Pulse 64 01/31/18 11:00 Resp 32 H 01/31/18 11:00 BP 95/50 L 01/31/18 11:00 Pulse Ox 93 L 01/31/18 11:00 Intake & Output 01/29/18 01/30/18 01/31/18 02/01/18 06:59 06:59 06:59 06:59 Intake Total 2892 / 2892 1944 / 1944 2302 / 2302 Output Total 1150 / 1150 950 / 950 1150 / 1150 Balance 1742 / 1742 994 / 994 1152 / 1152 Weight 94 kg 92.7 kg 94.2 kg Narrative: GENERAL: NAD, A&Ox0, nonverbal HEAD: Normocephalic. NECK: Supple, trachea midline. No lymphadenopathy EYES: No scleral icterus. No injection or drainage. CARDIOVASCULAR: Regular rate and rhythm without murmurs, gallops, or rubs. RESPIRATORY: Breath sounds equal bilaterally. No accessory muscle use. GASTROINTESTINAL: Abdomen soft, non-tender, nondistended. MUSCULOSKELETAL: No cyanosis, or edema. SKIN: Warm and dry. NEURO: Global neurological deficits. Routine HEENT Exam Eye: Present periorbital swelling Urinary Catheter Management Straight: Cath placed during this visit: yes Urethral indwelling: Yes Reason for continuing: Terminally ill/Comfort care Insertion date: 01/25/18 Insertion time: 16:22 Indwelling Urethral Catheter: Cath placed during this visit: yes Urethral indwelling: No Insertion date: 01/25/18 Results Labs CBC & Chem 7: 01/31/18 05:39 01/31/18 05:39 Imaging Imaging: Impressions Chest Ultrasound 01/31/18 00:00 CONCLUSION: There is a small right pleural effusion that appears somewhat loculated. No marking was performed since the lung is located peripherally without a good window for safe thoracentesis. If thoracentesis remains desired clinically, one could consider performing a chest CT with possible CT guided thoracentesis. Assessment and Plan Plan 82-year-old male admitted secondary to irretractable pain and compression fractures with failure to thrive with development of acute respiratory failure Acute hypoxic respiratory failure Continue steroids Continue respiratory support Continue oxygen Follow clinically Dysphasia Family considering PEG tube Aspiration pneumonia Continue cefepime Oxygen Metabolic encephalopathy May be related to infection Possible correlation with sodium, though less likely Acute kidney injury Continue free water Hold Lasix Hypernatremia Continue following sodium levels Continue free water Hypertension Continue baseline treatment Follow blood pressures Adjust treatments as needed Hypothyroidism Continue Synthroid Chronic peripheral edema Wound care Diuresis as tolerated History of asthma Continue steroids and breathing treatments as needed Follow clinically Oxygen as needed T12 compression fracture, subacute Patient on able to participate with PT DVT prophylaxis Coumadin Discharge planning possible hospice versus rehab Poor long-term prognosis Progress Note: Quality VTE Deep Vein Thrombosis/Pulmonary Embolism Present on Admission: No
--- NOTE | 2018-01-31 14:20 | P.DS ---
DS: Providers Date of admission: 01/22/18 19:58 Primary care physician: Richie Martinez MD Consults: 01/21/18 08:11 HUB Only Consult Order Stat Consulting Provider: Nai Acosta 01/22/18 10:39 Consult to Neurosurgery Routine Consulting Provider: Manohar Kuhn Reason for Consultation: intractable back pain 2/2 compression fx Notified:: Physician Spoke with:: Date Notified:: 01/22/18 Time Notified:: 11:03 Ordering Provider: SAYRA 01/23/18 09:22 HUB Only Consult Order Routine Consulting Provider: Wei Carvajal 01/23/18 14:22 Consult to Gastroenterology Routine Consulting Provider: Jani Sierra V Reason for Consultation: dysphagia Notified:: Office Spoke with:: SHABBIR Date Notified:: 01/23/18 Time Notified:: 14:24 Ordering Provider: SAYRA 01/26/18 15:22 Consult to High Speed Printer Operator Routine Consulting Provider: Manju Warren Reason for Consultation: worsening tachypnea and fluid overload at risk for clinical deterioration. hospitalist [phone] jaspreet barlow Notified:: Service Spoke with:: Marley Date Notified:: 01/26/18 Time Notified:: 15:28 Ordering Provider: MUNIRA 01/30/18 15:11 Consult to Pulmonology Routine Consulting Provider: Kelvin De Leon V Reason for Consultation: respiratory failure Notified:: Office Spoke with:: Carley Date Notified:: 01/30/18 Time Notified:: 15:22 Ordering Provider: ELBA 01/30/18 16:46 Consult to Palliative Care Routine Consulting Provider: Dharmesh Gonzalez Reason for Consultation: Assist with deciding goals of therapy Notified:: Service Spoke with:: Shana Date Notified:: 01/30/18 Time Notified:: 16:56 Ordering Provider: ELBA 01/30/18 16:47 Consult to Hospitalist Routine Consulting Provider: Carlita Mckoy Reason for Consultation: Consult and transfer to hospitalist service for medical management. Critical care will be signing off, please reconsult if needed Notified:: Service Spoke with:: Shana Date Notified:: 01/30/18 Time Notified:: 16:54 Ordering Provider: ELBA Brief History from admission: This is an 82-year-old male with a PMH of HTN, Hyperlipidemia and A. fib on Coumadin who was brought to the ER by EMS yesterday for complaints of back pain after a fall. CT L-Spine w/ T12 compression fracture and fitted for TLSO w/ plans for outpatient follow up, however was deemed unsafe d/c home due to unsteady gait and ongoing pain. On arrival, BP 132/62, HR 75, O2 sat 95% on 2L NC, Afebrile. DS: Summary Mr. Angela is an 82 year old male. He is admitted during this hospital stay for a T11/T12 compression fracture with diastolic CHF exacerbation and recurrent pneumonitis which lead to hypoxic respiratory failure. Transfer to ICU for treatment and patient has failed to thrive. He is NPO with worsening edema and hypernatremia. Mental status is also declined and progressively worsening. Family has elected for no PEG tube and has selected Hospice for further care, comfort care. Patient will discharge to inpatient hospice care today. Time Spent with Patient Total time spent providing and/or coordinating discharge services: Quality: VTE Deep Vein Thrombosis/Pulmonary Embolism Present on Admission: No Results Labs on day of discharge: Labs from last 24 hours 01/31/18 01/31/18 05:39 05:39 WBC 24.9 H RBC 2.70 L Hgb 9.7 L Hct 29.9 L MCV 110.8 H D MCH 35.9 H MCHC 32.4 RDW 18.5 H Plt Count 529 H MPV 9.4 Prelim Diff (Auto) Slide review pending Neut % (Auto) 58.3 Lymph % (Auto) 14.0 Gordon % (Auto) 24.8 H Eos % (Auto) 2.1 Baso % (Auto) 0.8 Neut # (Auto) 14.5 H Lymph # (Auto) 3.5 Gordon # (Auto) 6.2 H Eos # (Auto) 0.5 H Baso # (Auto) 0.2 WBC Differential Manual diff final Seg Neuts % (Manual) 54 Band Neuts % (Manual) 2 Lymphocytes % (Manual) 11 Monocytes % (Manual) 30 H Eosinophils % (Manual) 2 Basophils % (Manual) 1 Abs Neuts (Manual) 13.9 H Nucleated RBCs/100 WBC 1 H Differential Comment . Toxic Vacuolation Present H Platelet Estimate High H Platelet Morphology Enlarged H Pappenheimer Bodies Present H Griffin-Killen Bodies Present H Acanthocytes (Spur) 1+ H Sodium 155 H Potassium 5.5 H Chloride 122 H Carbon Dioxide 27.0 Anion Gap 6 BUN 55 H Creatinine 1.40 H Estimated GFR 48 L Random Glucose 121 H Calcium 8.6 Phosphorus 2.8 Magnesium 2.8 H Impressions ITS Impressions Lumbar Spine CT 01/21/18 05:25 CONCLUSION: 1. Degenerative changes are noted as above. 2. T12 compression fracture. Chest CT 01/23/18 00:00 CONCLUSION: 1. There is some mild poorly prominent adenopathy in the right hilum and precarinal region. 2. Bibasilar consolidation and nodular patchy nodular densities in the right middle lobe, along the major fissure and right middle lobe. PET/CT scan may be warranted on a nonemergent basis. 3. Small pleural effusions and bibasilar consolidation. Head MRI 01/23/18 00:00 CONCLUSION: 1. No acute hemorrhage, mass or evidence of acute infarction. 2. Atrophy and chronic small vessel ischemic changes. 3. Extensive pansinusitis. Videofluoroscopic Swallow 01/23/18 00:00 CONCLUSION: Silent aspiration with thin and puree liquid consistencies. Venous Doppler Study 01/26/18 00:00 CONCLUSION: No venous thrombosis. Abdomen X-Ray 01/28/18 00:00 CONCLUSION: Dobbhoff tube tip in the region of the antrum of the stomach. Chest X-Ray 01/30/18 04:00 CONCLUSION: Increasing airspace opacities in the right lower lung, persistent nonconsolidative airspace opacities in the central and upper lungs, and persistent left lower lobe consolidation. Chest Ultrasound 01/31/18 00:00 CONCLUSION: There is a small right pleural effusion that appears somewhat loculated. No marking was performed since the lung is located peripherally without a good window for safe thoracentesis. If thoracentesis remains desired clinically, one could consider performing a chest CT with possible CT guided thoracentesis. Discharge Plan Discharge Disposition Patient Disposition: 51 Hospice/Med Facility Discharge Condition Condition: Stable Discharge Order Discharge Orders: Discharge Order (Routine); Ordered 01/31/18 Ordered By: Brigido Barlow Discharge Details Anticipated Discharge Date: 01/31/18 Physicians Team ED Provider: Ailyn Ramírez Primary Care Provider: Richie Martinez Attending Provider: Brigido Barlow Other Providers: [facility] ; Manohar Kuhn ; Wei Carvajal ; Jani Sierra V ; Manju Warren ; Kelvin De Leon V ; Dharmesh Gonzalez Rxs /Orders / Referrals /Forms Prescriptions: New hydrocodone-acetaminophen [Felt] 5-325 mg tablet 1 tab PO Q4-6H PRN (Reason: acute pain exception) Qty: 35 RF: 0 Continue fluticasone-salmeterol [Advair Diskus] 250-50 mcg/dose Blister With Device 1 inh INHALATION DAILY Qty: 1 RF: 0 albuterol sulfate 1.25 mg/3 mL Solution For Nebulization 1.25 mg INHALATION Q6H PRN (Reason: Shortness Of Breath) RF: 0 Discontinued alendronate 70 mg Tablet 70 mg PO QWEEK RF: 0 diltiazem HCl 360 mg Capsule,Extended Release 24 Hr 360 mg PO DAILY RF: 0 levothyroxine [Synthroid] 100 mcg Tablet 100 mcg PO DAILY@0600 Qty: 30 RF: 0 furosemide [Lasix] 40 mg Tablet 40 mg PO BID Qty: 60 RF: 0 meclizine 12.5 mg Tablet 12.5 mg PO Q6H PRN (Reason: Vertigo) Qty: 120 RF: 0 allopurinol 100 mg Tablet 100 mg PO DAILY Qty: 30 RF: 0 potassium chloride 20 mEq Packet 20 meq PO TID Qty: 90 RF: 0 ramipril 2.5 mg Capsule 2.5 mg PO DAILY Qty: 30 RF: 0 warfarin [Coumadin] 5 mg Tablet 5.5 mg PO 5XW Qty: 30 RF: 0 docusate sodium [Colace] 100 mg Capsule 100 mg PO TID Qty: 90 RF: 0 pravastatin 20 mg Tablet 20 mg PO HS Qty: 30 RF: 0 calcium citrate 200 mg (950 mg) Tablet 300 mg PO QID Qty: 120 RF: 0 cholecalciferol (vitamin D3) [Vitamin D3] 5,000 unit Tablet 5,000 unit PO DAILY Qty: 30 RF: 0 warfarin [Coumadin] 1 mg Tablet 5.5 mg PO 5XW RF: 0 metolazone 2.5 mg tablet 2.5 mg PO 4XW RF: 0 hydroxyurea 500 mg capsule 500 mg PO DAILY RF: 0 metolazone 5 mg tablet 5 mg PO 3XW RF: 0 warfarin [Coumadin] 5 mg tablet 5 mg PO 2XWEEK RF: 0 cyanocobalamin (vitamin B-12) 1,000 mcg/mL Solution 1,000 mcg subcut QMONTH RF: 0 folic acid 800 mcg tablet 800 mcg PO DAILY RF: 0 polyethylene glycol 3350 [Miralax] 17 gram Powder In Packet 17 g PO DAILY PRN (Reason: Constipation) RF: 0 ascorbic acid (vitamin C) [Vitamin C] 500 mg Tablet 500 mg PO DAILY RF: 0 cod liver oil Oil 5 ml PO DAILY RF: 0 lsezmgaqymdi-vksi-xtwee acid [Centrum] 18-400 mg-mcg Tablet 1 tab PO DAILY RF: 0 Referrals: Richie Martinez MD [Primary Care Provider] - See Instructions Donald Gillis MD [Physician] - 3 Days Discharge Instructions Patient Printed Instructions: Vertebral Compression Fracture (ED) Status ED Status: Admitted Observation Patient
[2018-01-31 14:34] VITALS: BP 83/41; PULSE 55; RESP 38; TEMP 97.6; O2SAT 92
--- NOTE | 2018-01-31 17:11 | P.PNPAL ---
Reason for Visit Reason for visit: a. To assist with evaluation and management of symptoms including: Pain, dysphagia, dyspnea b. To assist medical decision maker(s) with: better understanding of current medical conditions; weighing benefits/burdens of medical treatment options; making medical treatment decisions. Subjective Subjective/Interval History: This is an 82-year-old male with a history of hypertension, hyperlipidemia and atrial fibrillation on Coumadin, who presents to the ED 01/21/18 after being discharged from a alf facility that day after a fall which occurred while he was transferring from his vehicle back to his house during which time he had a loss of balance and fell, striking the back of his head on the car. [facility] was called but he declined transport to the hospital at this time. He subsequently presented with complaints of lumbar pain, sharp, 10/10 with no relieving factors, exacerbated by movement. He denied any syncope, numbness sensation loss in the lower his incontinence, fever or chills. Patient seen today for follow-up of dysphagia, dyspnea, pain and goals of care. Patient is less responsive today, occasionally moaning, unable to quantify or qualify his discomfort. He cries out when being repositioned, however is quite hypotensive and unable to receive pain medication due to his low blood pressure. He remains dysphasic and has a Dobbhoff tube delivering tube feeding. Previous speech evaluation showed gross aspiration. Patient remains n.p.o. As his clinical condition is declining, patient's healthcare surrogate, Lobito Tobias, determined that he would not wish to live in this condition and would want to be comfortable. At his request hospice consultation was placed and admission nurse sent to his home for consent. . Family/Friend Interactions: In my discussion with Lobito, he stated that he would not wish to see his friend suffer and as his condition continues to decline and he is not making any substantial recovery, he believes that hospice is an appropriate choice for symptom management and comfort care. . Advance Directives Health Care Surrogate Name and Number: Lobito Tobias - (H), (C) Objective Vital Signs: Vital Signs 01/30/18 17:04 01/30/18 17:34 01/30/18 18:00 Temperature Pulse Rate 65 66 67 Respiratory Rate 26 H 25 H 28 H Blood Pressure 103/71 118/53 L Pulse Oximetry 91 L 91 L 91 L 12/17/18 18:04 01/30/18 18:34 01/30/18 19:00 Temperature Pulse Rate 68 68 69 Respiratory Rate 28 H 27 H 28 H Blood Pressure 115/59 L 120/64 Pulse Oximetry 91 L 91 L 91 L 01/30/18 19:04 01/30/18 19:34 01/30/18 19:52 Temperature Pulse Rate 69 73 Respiratory Rate 25 H 28 H Blood Pressure 119/76 117/65 Pulse Oximetry 91 L 91 L 92 L 01/30/18 20:00 01/30/18 20:14 01/30/18 20:34 Temperature 100.1 F H Pulse Rate 68 72 72 Respiratory Rate 26 H 24 24 Blood Pressure 131/65 110/48 L Pulse Oximetry 92 L 92 L 91 L 01/30/18 21:00 01/30/18 21:04 01/30/18 21:34 Temperature Pulse Rate 73 70 65 Respiratory Rate 26 H 22 22 Blood Pressure 115/53 L 110/53 L Pulse Oximetry 92 L 92 L 92 L 01/30/18 22:00 01/30/18 22:04 01/30/18 22:34 Temperature Pulse Rate 66 65 66 Respiratory Rate 22 26 H 26 H Blood Pressure 116/56 L 120/53 L Pulse Oximetry 91 L 92 L 92 L 01/30/18 23:00 01/30/18 23:04 01/30/18 23:34 Temperature Pulse Rate 66 66 66 Respiratory Rate 25 H 26 H 24 Blood Pressure 121/51 L 114/52 L Pulse Oximetry 92 L 92 L 92 L 01/31/18 00:00 01/31/18 00:04 01/31/18 00:34 Temperature 98.5 F Pulse Rate 65 65 66 Respiratory Rate 24 24 26 H Blood Pressure 119/71 107/62 Pulse Oximetry 92 L 92 L 91 L 01/31/18 01:00 01/31/18 01:04 01/31/18 01:34 Temperature Pulse Rate 65 66 70 Respiratory Rate 26 H 24 23 Blood Pressure 135/62 110/51 L Pulse Oximetry 93 L 93 L 91 L 01/31/18 02:00 01/31/18 02:12 01/31/18 03:00 Temperature Pulse Rate 66 64 67 Respiratory Rate 25 H 25 H 25 H Blood Pressure 129/55 L Pulse Oximetry 93 L 92 L 93 L 01/31/18 04:00 01/31/18 04:16 01/31/18 05:00 Temperature 99.0 F Pulse Rate 62 66 64 Respiratory Rate 24 24 25 H Blood Pressure 101/50 L 101/49 L Pulse Oximetry 94 L 93 L 93 L 01/31/18 06:00 01/31/18 07:00 01/31/18 07:52 Temperature Pulse Rate 67 65 Respiratory Rate 24 33 H Blood Pressure 100/55 L 104/52 L Pulse Oximetry 92 L 92 L 92 L 01/31/18 08:00 01/31/18 09:00 01/31/18 10:00 Temperature 98 F Pulse Rate 65 65 66 Respiratory Rate 34 H 35 H 72 H Blood Pressure 104/48 L 98/47 L 89/66 L Pulse Oximetry 92 L 94 L 93 L 01/31/18 10:34 01/31/18 10:46 01/31/18 10:58 Temperature Pulse Rate 64 65 64 Respiratory Rate 60 H 32 H 31 H Blood Pressure 94/46 L 99/51 L 97/51 L Pulse Oximetry 94 L 93 L 92 L 01/31/18 11:00 01/31/18 12:00 01/31/18 13:00 Temperature 97.6 F Pulse Rate 64 62 56 L Respiratory Rate 32 H 34 H 37 H Blood Pressure 95/50 L 92/44 L 88/42 L Pulse Oximetry 93 L 92 L 91 L 01/31/18 13:43 01/31/18 14:00 01/31/18 14:14 Temperature Pulse Rate 55 L 55 L Respiratory Rate 35 H 33 H 35 H Blood Pressure 83/40 L 78/37 L Pulse Oximetry 92 L 92 L 01/31/18 14:26 Temperature Pulse Rate 55 L Respiratory Rate 38 H Blood Pressure 83/41 L Pulse Oximetry 92 L Intake & Output 01/30/18 01/31/18 01/31/18 18:59 06:59 18:59 Intake Total 905 / 905 1397 / 1397 Output Total 700 / 700 450 / 450 Balance 205 / 205 947 / 947 Weight 207 lb 10.807 oz Intake: IV 100 / 100 200 / 200 Maxipime Inj 2,000 MG In NS Inj 100 / 100 200 / 200 100 ML @ 200 mls/hr IV.SIG Q12H [facility] Rx#:[id number] Oral 0 / 0 Tube Feeding 625 / 625 597 / 597 Tube Irrigant 600 / 600 Other 180 / 180 Output: Urine Amount (Catheter) 700 / 700 450 / 450 Indwelling Urethral Catheter 700 / 700 450 / 450 Other: # Incontinent Voids 2 Date of Last Bowel Movement 01/28/18 01/31/18 01/31/18 # Bowel Movements 0 # Incontinent Bowel Movements 1 Physical Exam: CONSTITUTIONAL/GENERAL: This is an adequately nourished patient, on 50% PRB mask , in mild distress. TUBES/LINES/DRAINS: PIV CARDIOVASCULAR: Irregular rhythm, controlled rate without murmurs, gallops, or rubs. No JVD. Peripheral pulses diminished. RESPIRATORY/CHEST: Breath sounds coarse, diminished, rhonchorous, mildly tachypneic. GASTROINTESTINAL: Abdomen soft, non-tender, nondistended. No hepato-splenomegaly , or palpable masses. No guarding. Bowel sounds present. GENITOURINARY: Without palpable bladder distension. Roman catheter in place. MUSCULOSKELETAL: Extremities without clubbing, cyanosis 1+ edema. No joint tenderness or effusion noted. No calf tenderness. No mottling or clubbing. NEUROLOGICAL: Obtunded, not responding to verbal or tactile stimuli at this evaluation. PSYCHIATRIC: Not opening eyes, obtunded. . Diagnostic Tests Laboratory: Laboratory Results - last 72 hr 01/29/18 01/29/18 01/29/18 04:48 04:48 04:48 WBC 12.7 H RBC 2.67 L Hgb 9.7 L Hct 28.8 L MCV 107.7 H MCH 36.2 H MCHC 33.6 RDW 17.3 H Plt Count 642 H MPV 8.5 Prelim Diff (Auto) Slide review pending Neut % (Auto) 53.9 Lymph % (Auto) 19.0 [place] % (Auto) 22.6 H Eos % (Auto) 3.7 Baso % (Auto) 0.8 Neut # (Auto) 6.8 Lymph # (Auto) 2.4 [place] # (Auto) 2.9 H Eos # (Auto) 0.5 H Baso # (Auto) 0.1 WBC Differential Manual diff final Seg Neuts % (Manual) 57 Band Neuts % (Manual) 5 Lymphocytes % (Manual) 18 Monocytes % (Manual) 14 H Eosinophils % (Manual) 4 Basophils % (Manual) Myelocytes % (Man) 2 H Abs Neuts (Manual) 8.1 H Nucleated RBCs/100 WBC 3 H Differential Comment . Toxic Vacuolation Platelet Estimate High H Platelet Morphology Enlarged H Basophilic Stippling Moderate H Spherocytes Pappenheimer Bodies [place] Bodies Present H Acanthocytes (Spur) 1+ H Sodium 154 H Potassium 4.5 Chloride 122 H Carbon Dioxide 27.7 Anion Gap 4 L BUN 34 H Creatinine 1.06 Estimated GFR 67 L Random Glucose 155 H Calcium 8.4 L Phosphorus Magnesium B-Natriuretic Peptide 354 H 01/30/18 01/30/18 01/31/18 05:04 05:04 05:39 WBC 16.2 H 24.9 H RBC 2.68 L 2.70 L Hgb 9.9 L 9.7 L Hct 28.4 L 29.9 L MCV 105.9 H 110.8 H D MCH 36.9 H 35.9 H MCHC 34.9 32.4 RDW 17.4 H 18.5 H Plt Count 601 H 529 H MPV 8.5 9.4 Prelim Diff (Auto) Slide review pending Slide review pending Neut % (Auto) 50.7 58.3 Lymph % (Auto) 22.7 14.0 [place] % (Auto) 23.0 H 24.8 H Eos % (Auto) 2.9 2.1 Baso % (Auto) 0.7 0.8 Neut # (Auto) 8.2 H 14.5 H Lymph # (Auto) 3.7 3.5 [place] # (Auto) 3.7 H 6.2 H Eos # (Auto) 0.5 H 0.5 H Baso # (Auto) 0.1 0.2 WBC Differential Manual diff final Manual diff final Seg Neuts % (Manual) 58 54 Band Neuts % (Manual) 2 Lymphocytes % (Manual) 19 11 Monocytes % (Manual) 18 H 30 H Eosinophils % (Manual) 2 2 Basophils % (Manual) 3 H 1 Myelocytes % (Man) Abs Neuts (Manual) 9.4 H 13.9 H Nucleated RBCs/100 WBC 3 H 1 H Differential Comment . . Toxic Vacuolation Present H Platelet Estimate High H High H Platelet Morphology Enlarged H Enlarged H Basophilic Stippling Heavy H Spherocytes 1+ H Pappenheimer Bodies Present H [place] Bodies Present H Present H Acanthocytes (Spur) Occ H 1+ H Sodium 156 H* Potassium 4.9 Chloride 124 H Carbon Dioxide 28.5 Anion Gap 4 L BUN 44 H Creatinine 1.43 H Estimated GFR 47 L Random Glucose 147 H Calcium 8.5 Phosphorus Magnesium B-Natriuretic Peptide 01/31/18 05:39 WBC RBC Hgb Hct MCV MCH MCHC RDW Plt Count MPV Prelim Diff (Auto) Neut % (Auto) Lymph % (Auto) [place] % (Auto) Eos % (Auto) Baso % (Auto) Neut # (Auto) Lymph # (Auto) [place] # (Auto) Eos # (Auto) Baso # (Auto) WBC Differential Seg Neuts % (Manual) Band Neuts % (Manual) Lymphocytes % (Manual) Monocytes % (Manual) Eosinophils % (Manual) Basophils % (Manual) Myelocytes % (Man) Abs Neuts (Manual) Nucleated RBCs/100 WBC Differential Comment Toxic Vacuolation Platelet Estimate Platelet Morphology Basophilic Stippling Spherocytes Pappenheimer Bodies [place] Bodies Acanthocytes (Spur) Sodium 155 H Potassium 5.5 H Chloride 122 H Carbon Dioxide 27.0 Anion Gap 6 BUN 55 H Creatinine 1.40 H Estimated GFR 48 L Random Glucose 121 H Calcium 8.6 Phosphorus 2.8 Magnesium 2.8 H B-Natriuretic Peptide Result Diagrams: 01/31/18 05:39 01/31/18 05:39 Imaging: ITS Impressions Lumbar Spine CT 01/21/18 05:25 CONCLUSION: 1. Degenerative changes are noted as above. 2. T12 compression fracture. Chest CT 01/23/18 00:00 CONCLUSION: 1. There is some mild poorly prominent adenopathy in the right hilum and precarinal region. 2. Bibasilar consolidation and nodular patchy nodular densities in the right middle lobe, along the major fissure and right middle lobe. PET/CT scan may be warranted on a nonemergent basis. 3. Small pleural effusions and bibasilar consolidation. Head MRI 01/23/18 00:00 CONCLUSION: 1. No acute hemorrhage, mass or evidence of acute infarction. 2. Atrophy and chronic small vessel ischemic changes. 3. Extensive pansinusitis. Videofluoroscopic Swallow 01/23/18 00:00 CONCLUSION: Silent aspiration with thin and puree liquid consistencies. Venous Doppler Study 01/26/18 00:00 CONCLUSION: No venous thrombosis. Abdomen X-Ray 01/28/18 00:00 CONCLUSION: Dobbhoff tube tip in the region of the antrum of the stomach. Chest X-Ray 01/30/18 04:00 CONCLUSION: Increasing airspace opacities in the right lower lung, persistent nonconsolidative airspace opacities in the central and upper lungs, and persistent left lower lobe consolidation. Chest Ultrasound 01/31/18 00:00 CONCLUSION: There is a small right pleural effusion that appears somewhat loculated. No marking was performed since the lung is located peripherally without a good window for safe thoracentesis. If thoracentesis remains desired clinically, one could consider performing a chest CT with possible CT guided thoracentesis. Assessment and Plan - Disease Oriented Problem List (1) Community acquired pneumonia (2) Asthma exacerbation (3) Atrial fibrillation (4) Congestive heart failure (5) Myeloproliferative disorder (6) Compression fracture of T12 vertebra (7) Fall Pertinent Non-Medical Issues: Psychosocial: Born in [place], [place]. Worked servicing vending machines. He was once but . He has one daughter, Livier Angela. Spiritual:[place] available. Legal: Living will and HCS on chart. Ethical issues impacting care: None noted. . Important Contacts: HCS: Lobito Tobias (Home) , (Cell) [phone] Daughter: Livier Angela . Prognosis: His prognosis is guarded. He has been aspirating consistently and now has aspiration pneumonitis. His respiratory status is fragile and he has multiple comorbidities. He has been hospitalized in both [place] and since November including a stretcher of rehab. He fell the day he was released from rehab, fracturing T12. His roommate, who is his healthcare surrogate, has made him a DO NOT RESUSCITATE at this time but reserves the right to reverse that should he regain lucidity. In either case, if he survives this hospitalization, he would likely remain in a alf facility for the remainder of his life. We will continue to hold conversations with his healthcare surrogate regarding his prognosis as clinical course progresses. He is at elevated risk for continued complications, decline and rehospitalizations. . Code Status: No Code DNR Plan: PLAN: Legal decision maker: Patient is not capacitated for decision-making. He has executed a healthcare surrogate and living will naming his roommate Lobito Tobias as his healthcare surrogate and father Jonnathan Maradiaga as his alternate surrogate. Goals: Comfort at this time. CODE STATUS: DO NOT RESUSCITATE SYMPTOMS: * Dyspnea: He is currently on a 50% partial rebreather mask saturating in the low 90s. It is believed he has aspiration pneumonitis. He is receiving Symbicort, cefepime and albuterol. Slab Tripper managing. HCS declining intubation. * Pain: He has a T12 fracture status post fall as well as multiple degenerative processes. He has morphine 2 mg every 4 hours as needed and [place] 5/325 mg every 4 hours as needed ordered, but his 2 hypotensive to receive medication. * Dysphasia: He is chronically aspirating and now has aspiration pneumonitis. Barium swallow shows silent aspiration. He currently has a Dobbhoff tube inserted for tube feeding and the [facility] might consider PEG tube but will require more time to assimilate all the information and make that decision. Further decisions based on patient's clinical course. PEG tube would not eliminate his risk of aspiration. As patient is declining, his [facility] has determined the best course is to transfer him to hospice care center for comfort care. Consents signed, transfer pending. Palliative care will continue to follow the patient during hospital course as condition evolves, to assist patient/decision-maker with understanding of their medical conditions, weighing benefits/burdens of treatment options, for clarification of goals of treatment. Additionally will assist with any symptoms of palliative concern. . Attestation Attestation: To help prompt me to consider important information that might be impacting today's encounter and assessment, information from prior notes written by myself or my colleagues may have been "brought forward" into today's note. My signature on this note, however, is an attestation that I personally performed the exam, history, and/or decision-making noted today, and, unless otherwise indicated, the interactions with patient, family, and staff as well as the review of records all occurred today. I also attest that the listed assessment and stated plan reflect my best clinical judgment today based on the combination of historical information, prior notes, and today's exam/ interactions. When time spent is documented, it refers only to time spent today by the signer, or if indicated, combined time spent today by collaborating physician/nurse practitioner. .
== END 2018-01-31 17:06 | disposition hospice, inpatient (51) ==
LOC: NEPE 05:02 → NEDA 05:02 → NEPGCP 23:37 → N06 01-25 12:31 → N03 01-26 15:43
PROVIDERS: ADMIT Hospitalist; ATTEND Hospitalist